=== PATIENT | male | born 1945 | race Caucasian/White ===

== ENCOUNTER 2020-04-04 07:21 | Outpatient (RCR) | payer MEDICARE, SELFPAY ==
[2020-03-28 11:01] VITALS: BMI 29.6
== END 2020-06-13 12:27 | disposition home or self-care (01) ==
LOC: ANHWOC 07:21
PROVIDERS: PCP Emergency Medicine; Visit Provider Emergency Medicine
DX: I87.2 Venous insufficiency (chronic) (peripheral) (principal)
CPT/HCPCS: 99212; 99213; G0463

== ENCOUNTER 2020-06-10 11:26 | Inpatient (IN) | payer MEDICARE, SELFPAY ==
[2020-06-10] VITALS (14 sets, daily range): BP systolic 136–163; BP diastolic 71–81; PULSE 104–146; RESP 15–24; TEMP 36.2–36.3; O2SAT 88–100; BMI 29.2
--- NOTE | ~2020-06-10 | XR_ITS ---
EXAMINATION: XR chest 2V EXAM DATE: 06/10/2020 12:44 INDICATION: Shortness of breath. History COPD. TECHNIQUE: Frontal and lateral projections of the chest obtained and reviewed. Comparison is made to prior examination from 10/02/2018. FINDINGS: Small right pleural effusion. No focal airspace disease or pneumothorax. Cardiomediastinal silhouette is normal. There are no osseous abnormalities identified. IMPRESSION: Small right pleural effusion. Reviewed, dictated and finalized at location B.
--- NOTE | ~2020-06-10 | XR_ITS ---
XR chest 2V DATE: 06/13/2020 10:03 INDICATION: Shortness of breath TECHNIQUE: AP and lateral views COMPARISON: 06/10/2020 CTA chest 06/10/2022 view chest FINDINGS: There is chronic pulmonary and pleural scarring in the right lower chest. Normal heart size . No interval pulmonary infiltrate or consolidation, pleural effusion or pulmonary vascular congestio n or pneumothorax is detected. IMPRESSION: Chronic right lower lung and pleural scarring Reviewed, dictated and finalized at location B.
--- NOTE | ~2020-06-10 | CT_ITS ---
EXAMINATION: CTA chest PE protocol DATE: 06/10/2020 14:58 INDICATION: Shortness of breath. TECHNIQUE: Computed tomography angiography (CTA) of the chest was performed with 100 mL Omnipaque-350 intravenous contrast timed to evaluate the pulmonary arteries. Coronal maximum intensity projection 3D-reconstructions were created by the technologist. Automated exposure control and iterative reconst ruction technique were employed. The dose-length product was 438.78 mGy-cm. COMPARISON: Chest CT 10/03/2018, 01/14/2018, 03/24/2004 FINDINGS: There is chronic radiation fibrosis in perihilar right lung. There is mild bronchiectasis i n right lower lobe. There are tree-in-bud opacities in right upper lobe and right lower lobe, consist ent with pneumonia. There is peripheral bandlike scarring in right lower lobe and right middle lobe. A calcified right lung nodule and calcified right hilar lymph nodes are consistent with old granuloma tous disease. There is chronic pleural thickening in right hemithorax. No pleural effusion. The heart size is normal. No pericardial effusion. There is no pulmonary embolus. There is mild paraesophageal lymphadenopathy. There is mild chronic height loss of multiple thoracic vertebral bodies. There is m oderate thoracic spondylosis. IMPRESSION: 1. No pulmonary embolus. 2. Recurrent versus chronic pneumonia involving right upper lobe and right lower lobe. 3. 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 4. Chronic mild paraesophageal lymphadenopathy, likely reactive. Reviewed, dictated and finalized at location A. IMPRESSION: 1. No pulmonary embolus. 2. Recurrent versus chronic pneumonia involving right upper lobe and right lowe r lobe. 3. 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 4. Chronic mild paraesophageal lymphadenopathy, likely reactive.
[2020-06-10 11:49] LABS: Basophils Percent Auto 0.4 % (0.2-1.2); Eosinophils Absolute Auto 0.3 K/mm3 (0-0.3); Eosinophils Percent Auto 3.6 % (0-4.4); Hematocrit 42.7 % (42.0-52.0); Hemoglobin 13.6 g/dL (14.0-18.0); Immature Granulocyte Absolute 0.03 K/mm3 (0.00-0.031); Immature Granulocyte Percent A 0.4 % (0-0.5); Immature Platelet Fraction Pct 3.5 % (0.9-11.2); Lymphocytes Absolute Auto 1.21 K/mm3 (0.9-3.2); Lymphocytes Percent Auto 17.5 % (18.3-44.2); Mean Corpuscular HGB Conc 31.9 g/dl (32-36); Mean Corpuscular Hemoglobin 29.2 pg (26-34); Mean Corpuscular Volume 91.6 fl (80-100); Mean Platelet Volume 9.8 fl (7.4-10.4); Monocytes Absolute Auto 0.7 K/mm3 (0.1-0.6); Monocytes Percent Auto 9.8 % (2.6-8.5); Neutrophils Absolute Auto 4.7 K/mm3 (1.3-6.7); Neutrophils Percent Auto 68.3 % (45.5-73.1); Platelet Count Result 287 k/mm3 (150-375); Red Blood Count 4.66 M/mm3 (4.6-6.20); Red Cell Distribution Width 14.4 % (11.5-14.5); White Blood Count 6.9 K/mm3 (4.5-10.0)
[2020-06-10 12:01] LABS: Anion Gap 6 mmol/L (8-16); Blood Urea Nitrogen 27 mg/dL (9-20); Calcium 9.7 mg/dL (8.4-10.2); Carbon Dioxide 29 mmol/L (22-30); Chloride 101 mmol/L (98-107); Estimated CRCL calculation 51 ml/min; Estimated Glomerular Filt Rate 59; Glucose 116 mg/dL (75-110); Potassium 4.9 mmol/L (3.4-5.0); Sodium 136 mmol/L (137-145)
--- NOTE | 2020-06-10 14:14 | ECG_ITS ---
Measurements Intervals [place] Rate: 116 P: 52 OR: 136 QRS: -23 QRSD: 78 T: 42 QT: 305 QTc: 425 Interpretive Statements SINUS TACHYCARDIA CONSIDER INFERIOR INFARCT, AGE INDETERMINATE BASELINE ARTIFACT- I, II, III, AVL, V4-V6 ABNORMAL ECG Electronically Signed On 06-10-2020 20:16:17 CDT by Jn Malave D.O.
--- NOTE | 2020-06-10 14:22 | ED.SOB ---
HPI - SOB/Dyspnea General Chief Complaint: Upper Respiratory Infection Stated Complaint: sent by pcp for pneumonia Time Seen by Provider: 06/10/20 14:05 Source: patient Mode of arrival: ambulatory Limitations: no limitations History of Present Illness HPI Narrative: Patient complaining of shortness of breath x2 to 3 days. Patient was sent here by his primary care physician due to crackles in his lungs you might have pneumonia . Patient denies any chest pain abdominal pain nausea vomiting fever or chills. Patient states he has a history of COPD and on home O2 at 2 L. Related Data Home Medications Medication Instructions Recorded Confirmed albuterol sulfate 2.5 mg/0.5 mL See Rx Instructions .ROUTE .COMPLEX 10/08/19 03/28/20 solution for nebulization calcium carbonate 600 mg calcium 600 mg PO DAILY 10/08/19 03/28/20 (1,500 mg) tablet cholecalciferol (vitamin D3) 50 2,000 unit PO DAILY 10/08/19 03/28/20 mcg (2,000 unit) capsule ferrous fumarate-ascorbic 1 tablet PO .daily tablet 10/08/19 03/28/20 acid-ascorbate sod 65 mg iron-125 mg tablet fish oil-dha-epa 1,200 mg-144 1 cap PO BID cap 10/08/19 03/28/20 mg-216 mg capsule fluticasone propionate 50 See Rx Instructions NASAL DAILY 10/08/19 03/28/20 mcg/actuation nasal PRN ml spray,suspension montelukast 10 mg tablet 10 mg PO .COMPLEX 10/08/19 03/28/20 multivitamin,tx-minerals 1 cap PO DAILY 10/08/19 03/28/20 niacin 500 mg tablet 500 mg PO DAILY 10/08/19 03/28/20 omeprazole 20 mg capsule,delayed 20 mg PO .COMPLEX 10/08/19 03/28/20 release Allergies Allergy/AdvReac Type Severity Reaction Status Date / Time No Known Allergies Allergy Unverified 01/13/18 11:30 Review of Systems Review of Systems: All systems reviewed & are unremarkable except as noted in HPI and below Constitutional: Constitutional: Denies body ache(s), Denies chills, Denies excessive sweating, Denies fatigue, Denies fever(s), Denies headache(s), Denies lethargy, Denies malaise, Denies weakness and Denies weight loss Eyes: Eyes: Denies blurry vision, Denies change in vision and Denies loss of vision ENT: Denies dizziness, Denies ear discharge, Denies headache(s), Denies lip swelling, Denies epistaxis, Denies nasal congestion, Denies neck pain, Denies throat swelling and Denies tongue swelling Cardiovascular: Cardiovascular: Denies chest pain, Denies chest pain at rest, Denies chest pain with activity, Denies diaphoresis, Denies rapid heart rate, Denies edema, Denies irregular heart rhythm, Denies lightheadedness, Denies palpitations, Denies dyspnea and Denies dyspnea on exertion Gastrointestinal: Gastrointestinal: Denies abdominal pain, Denies melena, Denies hematochezia, Denies diarrhea, Denies nausea, Denies vomiting and Denies hematemesis Musculoskeletal: Musculoskeletal: Denies abnormal gait, Denies deformity, Denies joint swelling, Denies limited range of motion, Denies neck pain and Denies numbness Neurologic: Denies Abnormal speech present, Denies abnormal gait, Denies confusion, Denies dizziness, Denies headache(s), Denies focal weakness, Denies loss of vision, Denies numbness, Denies Other visual disturbances, Denies Sensory deficit (Neuro) and Denies weakness Psychiatric: Psychiatric: Denies confusion, Denies depression, Denies auditory hallucinations, Denies homicidal ideation and Denies suicidal ideation Endocrine: Endocrine: Denies cold intolerance, Denies excessive sweating, Denies fatigue, Denies heat intolerance and Denies palpitations Hematologic/Lymphatic: Hematologic/Lymphatic: Denies easy bleeding and Denies easy bruising Allergic/Immunologic: Allergic/Immunologic: Denies lip swelling, Denies throat swelling and Denies tongue swelling [facility] Social History Social History Smoking status: Former smoker Smoking end date: 09/16/93 Alcohol intake: never Gender identity (if verbalized by the patient): Male
[2020-06-10] MEDS: IPRATROPIUM BR 0.02% INH SOLN 0.5 MG/2.5 ML VIAL INHALATION ×2 (14:29→22:00)
[2020-06-10] MEDS: ALBUTEROL SULFATE NEB 2.5 MG/0.5 ML INH 5 MG INHALATION (14:29)
[2020-06-10 14:53] LABS: Lactic Acid Reflex 1.9 mmol/L (0.7-2.1)
[2020-06-10] MEDS: LACTATED RINGERS 1,000 ML 999 ML IV CONT (15:21)
[2020-06-10] MEDS: methylPREDNISolone SOD SUCC 125 MG VIAL IV PUSH (15:21)
--- NOTE | 2020-06-10 20:06 | ADMGEN ---
This patient, Zak Negrete, was admitted to Medical Room 349-01. Patient/family oriented to hospital policies and general routines including ID bracelet, bed and alarms, visiting hours, pain management, procedures, bathroom and other care routines, personal items, smoking policy, room service/diet, and visiting hours. Valuables list has been completed. Information on how to activate the Rapid Response Team has been discussed. Patient/Family are encouraged to report perceived risks to care and to ask questions if they do not understand what they are told or what they should do.
[2020-06-10] MEDS: LACTATED RINGERS 1,000 ML 100 ML IV CONT (20:55)
--- NOTE | 2020-06-10 21:26 | PM.IMHP ---
H&P: HPI History of Present Illness Date/Time: 06/10/20 21:26 Chief complaint: PNEUMONIA, COPD EXACERB Narrative: Zak Negrete is a 75 year old male Who has a history of COPD with hypoxia. He chronically wears oxygen at 2 L per nasal cannula at home. The patient was diagnosed with small cell carcinoma in 1996 And that whenwhen he stops smoking. patient has scar tissue noted to the right middle and lower lobe of his lungs. Patient has been here multiple times for pneumonia. The patient stated that his O2 concentrator ran out was not working correctly at home so he is without oxygen and was short of breath today. He will disease primary care doctor and was wheezing. He was also found to be tachycardic which is chronic for the patient. The patient has been short of breath for the last couple days. He is been wheezing. His primary care doctor sent him to the emergency room because he was having some crackles. Patient had a CT a today which was read as no pulmonary embolus. Recurrent versus chronic pneumonia involving right upper lobe and right lower lobe. 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 Chronic mild para esophageal lymphadenopathy likely reactive. Patient was empirically started on a Zithromax and Rocephin for pneumonia. He was started on IV fluids and given nebulizer treatments as well. He was given steroids in the emergency room as well. He does not have a fever chills no cough. Date of service 06/10/20. Review of Systems Review of Systems: All systems reviewed & are unremarkable except as noted in HPI and below Constitutional: Constitutional: Reports as per HPI and Reports no additional constitutional complaints Eyes: Eyes: Reports as per HPI and Reports no additional eye complaints ENT: Reports system reviewed and no additional complaints, except as documented and Reports Normal hearing present Cardiovascular: Cardiovascular: Reports no additional cardiovascular complaints Respiratory: Respiratory: Reports no additional respiratory complaints and Reports no additional respiratory complaints Gastrointestinal: Gastrointestinal: Reports as per HPI and Reports no additional gastrointestinal complaints Musculoskeletal: Musculoskeletal: Reports no additional musculoskeletal complaints Integumentary/Breasts: Skin/Breast: Reports system reviewed and no additional complaints, except as docu and Reports as per HPI Neurologic: Reports system reviewed and no additional complaints, except as documented, Reports as per HPI and Reports Normal hearing present Psychiatric: Psychiatric: Reports no additional psychiatric complaints and Reports as per HPI Endocrine: Endocrine: Reports no additional endocrine complaints Hematologic/Lymphatic: Hematologic/Lymphatic: Reports no additional hematologic/lymphatic complaints Allergic/Immunologic: Allergic/Immunologic: Reports no additional allergic/immunologic complaints [facility] Past Medical History Medical History (Updated 06/10/20 @ 21:41 by Kayla David NP) Asthma BPH (benign prostatic hyperplasia) Chronic respiratory failure chronic oxygen at 2 L per nasal cannula. DM2 (diabetes mellitus, type 2) GERD (gastroesophageal reflux disease) HLD (hyperlipidemia) Hypertension Hypothyroidism (acquired) Osteoarthritis Peripheral neuropathy Small cell carcinoma radiation and chemotherapy 1996 fibrosis tissues noted in the right middle and lower lobe Surgical History Surgical History History of removal of pigmented skin lesion face History of right hip replacement Family History Family History (Updated 06/10/20 @ 21:35 by Kayla David NP) Mother Patient's mother is , Onset Age: 71 Heart disease Sibling Family history of cardiovascular disease brother Family history of chronic obstructive pulmonary disease sister Heart disease brother Father
[2020-06-10] MEDS: LEVALBUTEROL NEB 1.25 MG/3 ML 0.63 MG INHALATION (22:00)
[2020-06-10] MEDS: methylPREDNISolone SOD SUCC 125 MG VIAL 80 MG IV PUSH (23:01)
[2020-06-10] MEDS: metFORMIN HCL 500 MG TABLET PO (23:01)
[2020-06-11] VITALS (17 sets, daily range): BP systolic 123–136; BP diastolic 60–70; PULSE 80–118; RESP 18–20; TEMP 36.2–36.6; O2SAT 93–99
[2020-06-11] MEDS: IPRATROPIUM BR 0.02% INH SOLN 0.5 MG/2.5 ML VIAL INHALATION ×4 (03:25→21:28)
[2020-06-11] MEDS: LEVALBUTEROL NEB 1.25 MG/3 ML 0.63 MG INHALATION ×2 (03:25→08:18)
[2020-06-11] MEDS: methylPREDNISolone SOD SUCC 125 MG VIAL 80 MG IV PUSH ×3 (05:13→18:01)
[2020-06-11 05:43] LABS: Hematocrit 40.2 % (42.0-52.0); Hemoglobin 12.9 g/dL (14.0-18.0); Mean Corpuscular HGB Conc 32.1 g/dl (32-36); Mean Corpuscular Volume 90.3 fl (80-100); Platelet Count Result 286 k/mm3 (150-375); Red Blood Count 4.45 M/mm3 (4.6-6.20); Red Cell Distribution Width 14.1 % (11.5-14.5); White Blood Count 8.9 K/mm3 (4.5-10.0)
[2020-06-11 05:44] LABS: Basophils Percent Auto 0.1 % (0.2-1.2); Immature Granulocyte Absolute 0.07 K/mm3 (0.00-0.031); Immature Granulocyte Percent A 0.8 % (0-0.5); Lymphocytes Absolute Auto 0.43 K/mm3 (0.9-3.2); Lymphocytes Percent Auto 4.8 % (18.3-44.2); Mean Platelet Volume 9.4 fl (7.4-10.4); Monocytes Absolute Auto 0.1 K/mm3 (0.1-0.6); Monocytes Percent Auto 1.1 % (2.6-8.5); Neutrophils Absolute Auto 8.3 K/mm3 (1.3-6.7); Neutrophils Percent Auto 93.2 % (45.5-73.1)
[2020-06-11 06:00] LABS: Alanine Aminotransferase 23 U/L (4-50); Albumin Level 3.8 g/dL (3.5-5.1); Alkaline Phosphatase 55 U/L (38-126); Anion Gap 4 mmol/L (8-16); Aspartate Amino Transferase 21 U/L (17-59); Bilirubin,Total 0.3 mg/dL (0.2-1.3); Blood Urea Nitrogen 21 mg/dL (9-20); Calcium 9.3 mg/dL (8.4-10.2); Carbon Dioxide 31 mmol/L (22-30); Chloride 101 mmol/L (98-107); Estimated CRCL calculation 60 ml/min; Estimated Glomerular Filt Rate > 60; Glucose 161 mg/dL (75-110); Potassium 4.7 mmol/L (3.4-5.0); Sodium 136 mmol/L (137-145)
[2020-06-11] MEDS: LEVOTHYROXINE SODIUM 50 MCG TABLET PO (06:39)
[2020-06-11 08:17] LABS: Glucose Point of Care 180 (65-105)
[2020-06-11] MEDS: PANTOPRAZOLE 40 MG TABLET PO (09:23)
[2020-06-11] MEDS: OMEGA 3 POLYUNSAT FATTY ACIDS 1 GM CAP PO ×2 (09:23→16:30)
[2020-06-11] MEDS: CHOLECALCIFEROL 1,000 UNITS TABLET 2000 UNITS PO (09:23)
[2020-06-11] MEDS: LOSARTAN POTASSIUM 25 MG TABLET 75 MG PO (09:23)
[2020-06-11] MEDS: THERAPEUTIC MULTIVITAMINS/MINERALS TAB (*BKC) 1 TABLET PO (09:23)
[2020-06-11] MEDS: TAMSULOSIN HCL 0.4 MG CAPSULE PO (09:23)
[2020-06-11] MEDS: CALCIUM CARBONATE (OSCAL) 500 MG TABLET PO (09:24)
[2020-06-11] MEDS: FERROUS SULFATE 324 MG TABLET PO (09:24)
[2020-06-11] MEDS: FUROSEMIDE 20 MG TABLET PO (09:24)
[2020-06-11] MEDS: ASCORBIC ACID 125 MG TABLET PO (09:24)
[2020-06-11] MEDS: ATORVASTATIN 20 MG TABLET 60 MG PO (09:24)
[2020-06-11] MEDS: NIACIN SA 500 MG TABLET PO (09:25)
--- NOTE | 2020-06-11 11:52 | PM.IMPN ---
Progress Note: A&P Assessment and Plan (1) Community acquired pneumonia: Code(s): J18.9 - Pneumonia, unspecified organism Status: Acute Assessment and Plan: the pneumonia showing up where he has fibrosis in the right mid and lower lobe so I am not completely convinced that this is pneumonia or 3rd to seeing the scar tissue. However the patient does have COPD so was empirically started on a Zithromax and Rocephin. We did order for sputum specimen. The patient is not coughing at this time he should short of breath the knees chronically on oxygen 2 L per nasal cannula. The patient stated that his machine was not working correctly at home which could be adding to his exacerbation of dyspnea. 06/11/20 11:52Patient is a 75-year-old male with history of COPD chronic respiratory failure on home oxygen, also diagnosed with a small cell carcinoma and had radiation therapy, he had been short of breath, he further states this oxygen concentrator is not working this is also causing him short of breath, was seen by his primary care doctor and patient may have pneumonia and was sent to emergency department for further evaluation, CTA scan of the chest did not show pulmonary emboli does indicate possible pneumonia scarring, patient is started on antibiotics with a Rocephin azithromycin, Solu-Medrol and updraft, will continue to monitor the patient and reassess chest x-ray on Saturday if there is significant improvement in chest x-ray and clinically will discharge the patient home. (2) Asthma exacerbation in COPD: Code(s): J44.1 - Chronic obstructive pulmonary disease with (acute) exacerbation; J45.901 - Unspecified asthma with (acute) exacerbation Status: Acute Assessment and Plan: I did order Solu-Medrol but will have to watch his blood sugars closely. Continue with his nebulizer Treatments. Patient has a history of tachycardia which is albuterol in a may be making it worse. We may consider changing him to Xopenex. (3) Hypertension: Code(s): I10 - Essential (primary) hypertension Status: Chronic Assessment and Plan: Continue with losartan and Lasix. (4) DM2 (diabetes mellitus, type 2): Code(s): E11.9 - Type 2 diabetes mellitus without complications Status: Chronic Assessment and Plan: Accu-Cheks AC and HS. His last A1c was 5.7. Metformin is on hold at this time. (5) Tachycardia: Code(s): R00.0 - Tachycardia, unspecified Status: Acute Assessment and Plan: Most likely chronic. Could be related to his nebulizer treatments. (6) Hypoxia: Code(s): R09.02 - Hypoxemia Status: Acute Assessment and Plan: Patient has chronic hypoxia. The patient used to smoke and has COPD at history of lung cancer which was treated. Patient is chronically on 2 L per nasal cannula. (7) BPH (benign prostatic hyperplasia): Qualifiers: Lower urinary tract symptom presence: symptoms absent Qualified Code(s): N40.0 - Benign prostatic hyperplasia without lower urinary tract symptoms Code(s): N40.0 - Benign prostatic hyperplasia without lower urinary tract symptoms Status: Chronic Assessment and Plan: The patient denies is but he is on tamsulosin will continue with that he has no problems at this time. (8) Small cell lung cancer: Code(s): C34.90 - Malignant neoplasm of unspecified part of unspecified bronchus or lung Status: Acute Assessment and Plan: Patient has had radiation treatment and chemotherapy in the past. (9) HLD (hyperlipidemia): Qualifiers: Hyperlipidemia type: mixed hyperlipidemia Qualified Code(s): E78.2 - Mixed hyperlipidemia Code(s): E78.5 - Hyperlipidemia, unspecified Status: Acute Assessment and Plan: Continue with atorvastatin and fenofibrate. Subjective Date/time seen: 06/11/20 11:52Patient is a 75-year-old male with history of COPD chronic
[2020-06-11] MEDS: INSULIN ASPART (*BKC) 100 UNITS/ML SUB-Q ×2 (12:07→16:31)
[2020-06-11 16:18] LABS: Glucose Point of Care 240 (65-105)
[2020-06-11 17:44] LABS: Glucose Point of Care 233 (65-105)
[2020-06-11] MEDS: metFORMIN HCL 500 MG TABLET PO (20:25)
[2020-06-11 22:28] LABS: Glucose Point of Care 285 (65-105)
[2020-06-12] VITALS (17 sets, daily range): BP systolic 121–139; BP diastolic 52–65; PULSE 66–120; RESP 16–18; TEMP 36.4–36.6; O2SAT 95–97
[2020-06-12] MEDS: methylPREDNISolone SOD SUCC 125 MG VIAL 80 MG IV PUSH ×2 (01:17→05:52)
[2020-06-12] MEDS: IPRATROPIUM BR 0.02% INH SOLN 0.5 MG/2.5 ML VIAL INHALATION ×4 (02:46→21:14)
[2020-06-12] MEDS: LEVOTHYROXINE SODIUM 50 MCG TABLET PO (05:52)
[2020-06-12 06:36] LABS: Hematocrit 37.6 % (42.0-52.0); Hemoglobin 12.4 g/dL (14.0-18.0); Mean Corpuscular Volume 90.8 fl (80-100); Mean Platelet Volume 9.9 fl (7.4-10.4); Platelet Count Result 305 k/mm3 (150-375); Red Blood Count 4.14 M/mm3 (4.6-6.20); Red Cell Distribution Width 14.6 % (11.5-14.5); White Blood Count 16.1 K/mm3 (4.5-10.0)
[2020-06-12 06:46] LABS: Anion Gap 9 mmol/L (8-16); Blood Urea Nitrogen 26 mg/dL (9-20); Calcium 9.2 mg/dL (8.4-10.2); Carbon Dioxide 29 mmol/L (22-30); Chloride 99 mmol/L (98-107); Estimated CRCL calculation 60 ml/min; Estimated Glomerular Filt Rate > 60; Glucose 201 mg/dL (75-110); Potassium 4.7 mmol/L (3.4-5.0); Sodium 137 mmol/L (137-145)
[2020-06-12] MEDS: FLUTICASONE PROPIONATE 0.05% NA SPR 16 GM BTL (*BKC) 1 SPRAY NASAL (07:55)
[2020-06-12] MEDS: OMEGA 3 POLYUNSAT FATTY ACIDS 1 GM CAP PO ×2 (09:01→20:17)
[2020-06-12] MEDS: TAMSULOSIN HCL 0.4 MG CAPSULE PO (09:01)
[2020-06-12] MEDS: LOSARTAN POTASSIUM 25 MG TABLET 75 MG PO (09:01)
[2020-06-12] MEDS: ASCORBIC ACID 125 MG TABLET PO (09:01)
[2020-06-12] MEDS: PANTOPRAZOLE 40 MG TABLET PO (09:01)
[2020-06-12] MEDS: CALCIUM CARBONATE (OSCAL) 500 MG TABLET PO (09:01)
[2020-06-12] MEDS: THERAPEUTIC MULTIVITAMINS/MINERALS TAB (*BKC) 1 TABLET PO (09:02)
[2020-06-12] MEDS: FERROUS SULFATE 324 MG TABLET PO (09:02)
[2020-06-12] MEDS: ATORVASTATIN 20 MG TABLET 60 MG PO (09:02)
[2020-06-12] MEDS: FUROSEMIDE 20 MG TABLET PO (09:03)
[2020-06-12] MEDS: CHOLECALCIFEROL 1,000 UNITS TABLET 2000 UNITS PO (09:03)
[2020-06-12] MEDS: NIACIN SA 500 MG TABLET PO (09:03)
[2020-06-12] MEDS: INSULIN ASPART (*BKC) 100 UNITS/ML SUB-Q ×3 (09:06→17:25)
[2020-06-12 10:30] LABS: Glucose Point of Care 209 (65-105)
--- NOTE | 2020-06-12 12:27 | P.PNIM_ITS ---
Progress Note: A&P Assessment and Plan (1) Community acquired pneumonia: Code(s): J18.9 - Pneumonia, unspecified organism Status: Acute Assessment and Plan: 06/12/20 12:27 the pneumonia showing up where he has fibrosis in the right mid and lower lobe so I am not completely convinced that this is pneumonia or 3rd to seeing the scar tissue. However the patient does have COPD so was empirically started on a Zithromax and Rocephin. We did order for sputum specimen. The patient is not coughing at this time he should short of breath the knees chronically on oxygen 2 L per nasal cannula. The patient stated that his machine was not working correctly at home which could be adding to his exacerbation of dyspnea. Patient is a 75-year-old male with history of COPD chronic respiratory failure on home oxygen, also diagnosed with a small cell carcinoma and had radiation therapy, he had been short of breath, he further states this oxygen concentrator is not working this is also causing him short of breath, was seen by his primary care doctor and patient may have pneumonia and was sent to emergency department for further evaluation, CTA scan of the chest did not show pulmonary emboli does indicate possible pneumonia scarring, patient is started on antibiotics with a Rocephin azithromycin, Solu-Medrol and updraft, today on 06/12 the patient is feeling much not as short of breath as when he arrived denies any fever concerned about elevated blood sugar most likely secondary to steroid, will stop Solu-Medrol start the patient on oral prednisone and will taper it down as symptoms improved, and will reassess chest x-ray on Saturday if there is significant improvement in chest x-ray and clinically will discharge the patient home. will have a PT OT evaluate the patient patient may benefit going home with physical therapist (2) Asthma exacerbation in COPD: Code(s): J44.1 - Chronic obstructive pulmonary disease with (acute) exacerbation; J45.901 - Unspecified asthma with (acute) exacerbation Status: Acute Assessment and Plan: I did order Solu-Medrol but will have to watch his blood sugars closely. Continue with his nebulizer Treatments. Patient has a history of tachycardia which is albuterol in a may be making it worse. We may consider changing him to Xopenex. (3) Hypertension: Code(s): I10 - Essential (primary) hypertension Status: Chronic Assessment and Plan: Continue with losartan and Lasix. (4) DM2 (diabetes mellitus, type 2): Code(s): E11.9 - Type 2 diabetes mellitus without complications Status: Chronic Assessment and Plan: Accu-Cheks AC and HS. His last A1c was 5.7. Metformin is on hold at this time. (5) Tachycardia: Code(s): R00.0 - Tachycardia, unspecified Status: Acute Assessment and Plan: Most likely chronic. Could be related to his nebulizer treatments. (6) Hypoxia: Code(s): R09.02 - Hypoxemia Status: Acute Assessment and Plan: Patient has chronic hypoxia. The patient used to smoke and has COPD at history of lung cancer which was treated. Patient is chronically on 2 L per nasal cannula. (7) BPH (benign prostatic hyperplasia): Qualifiers: Lower urinary tract symptom presence: symptoms absent Qualified Code(s): N40.0 - Benign prostatic hyperplasia without lower urinary tract symptoms Code(s): N40.0 - Benign prostatic hyperplasia without lower urinary tract symptoms Status: Chronic Assessment and Plan: The patient denies is but he is on tamsulosin will continue with that he has no problems at this time. (8
[2020-06-12 12:30] LABS: Glucose Point of Care 215 (65-105)
[2020-06-12 17:18] LABS: Glucose Point of Care 286 (65-105)
[2020-06-12] MEDS: metFORMIN HCL 500 MG TABLET PO (20:08)
[2020-06-12 21:45] LABS: Glucose Point of Care 149 (65-105)
[2020-06-13] VITALS (7 sets, daily range): BP systolic 142; BP diastolic 80; PULSE 95–110; RESP 18–20; TEMP 36.2; O2SAT 98
[2020-06-13 06:02] LABS: Hematocrit 40.8 % (42.0-52.0); Hemoglobin 13.1 g/dL (14.0-18.0); Mean Corpuscular HGB Conc 32.1 g/dl (32-36); Mean Corpuscular Hemoglobin 29.5 pg (26-34); Mean Corpuscular Volume 91.9 fl (80-100); Mean Platelet Volume 9.3 fl (7.4-10.4); Platelet Count Result 296 k/mm3 (150-375); Red Blood Count 4.44 M/mm3 (4.6-6.20); Red Cell Distribution Width 14.8 % (11.5-14.5); White Blood Count 13.2 K/mm3 (4.5-10.0)
[2020-06-13 06:15] LABS: Anion Gap 4 mmol/L (8-16); Blood Urea Nitrogen 30 mg/dL (9-20); Calcium 9.4 mg/dL (8.4-10.2); Carbon Dioxide 36 mmol/L (22-30); Chloride 98 mmol/L (98-107); Estimated CRCL calculation 55 ml/min; Estimated Glomerular Filt Rate > 60; Glucose 112 mg/dL (75-110); Potassium 4.5 mmol/L (3.4-5.0); Sodium 138 mmol/L (137-145)
[2020-06-13] MEDS: LEVOTHYROXINE SODIUM 50 MCG TABLET PO (06:45)
[2020-06-13 08:00] LABS: Glucose Point of Care 104 (65-105)
[2020-06-13] MEDS: IPRATROPIUM BR 0.02% INH SOLN 0.5 MG/2.5 ML VIAL INHALATION (08:06)
[2020-06-13] MEDS: NIACIN SA 500 MG TABLET PO (08:51)
[2020-06-13] MEDS: LOSARTAN POTASSIUM 25 MG TABLET 75 MG PO (08:51)
[2020-06-13] MEDS: OMEGA 3 POLYUNSAT FATTY ACIDS 1 GM CAP PO (08:52)
[2020-06-13] MEDS: ASCORBIC ACID 125 MG TABLET PO (08:52)
[2020-06-13] MEDS: ATORVASTATIN 20 MG TABLET 60 MG PO (08:52)
[2020-06-13] MEDS: CHOLECALCIFEROL 1,000 UNITS TABLET 2000 UNITS PO (08:53)
[2020-06-13] MEDS: predniSONE 20 MG TABLET 60 MG PO (08:53)
[2020-06-13] MEDS: PANTOPRAZOLE 40 MG TABLET PO (08:53)
[2020-06-13] MEDS: CALCIUM CARBONATE (OSCAL) 500 MG TABLET PO (08:54)
[2020-06-13] MEDS: TAMSULOSIN HCL 0.4 MG CAPSULE PO (08:54)
[2020-06-13] MEDS: FERROUS SULFATE 324 MG TABLET PO (08:54)
[2020-06-13] MEDS: FUROSEMIDE 20 MG TABLET PO (08:54)
[2020-06-13] MEDS: THERAPEUTIC MULTIVITAMINS/MINERALS TAB (*BKC) 1 TABLET PO (08:55)
--- NOTE | 2020-06-13 11:50 | PM.DS ---
DS: Admitting Diagnosis Admitting Diagnosis Admitting Diagnosis: PNEUMONIA, COPD EXACERB DS: Discharge Diagnosis Discharge Diagnosis (1) Community acquired pneumonia: Code(s): J18.9 - Pneumonia, unspecified organism Status: Acute Assessment and Plan: 06/12/20 12:27 the pneumonia showing up where he has fibrosis in the right mid and lower lobe so I am not completely convinced that this is pneumonia or 3rd to seeing the scar tissue. However the patient does have COPD so was empirically started on a Zithromax and Rocephin. We did order for sputum specimen. The patient is not coughing at this time he should short of breath the knees chronically on oxygen 2 L per nasal cannula. The patient stated that his machine was not working correctly at home which could be adding to his exacerbation of dyspnea. Patient is a 75-year-old male with history of COPD chronic respiratory failure on home oxygen, also diagnosed with a small cell carcinoma and had radiation therapy, he had been short of breath, he further states this oxygen concentrator is not working this is also causing him short of breath, was seen by his primary care doctor and patient may have pneumonia and was sent to emergency department for further evaluation, CTA scan of the chest did not show pulmonary emboli does indicate possible pneumonia scarring, patient is started on antibiotics with a Rocephin azithromycin, Solu-Medrol and updraft, today on 06/12 the patient is feeling much not as short of breath as when he arrived denies any fever concerned about elevated blood sugar most likely secondary to steroid, will stop Solu-Medrol start the patient on oral prednisone and will taper it down as symptoms improved, and will reassess chest x-ray on Saturday if there is significant improvement in chest x-ray and clinically will discharge the patient home. will have a PT OT evaluate the patient patient may benefit going home with physical therapist (2) Asthma exacerbation in COPD: Code(s): J44.1 - Chronic obstructive pulmonary disease with (acute) exacerbation; J45.901 - Unspecified asthma with (acute) exacerbation Status: Acute Assessment and Plan: I did order Solu-Medrol but will have to watch his blood sugars closely. Continue with his nebulizer Treatments. Patient has a history of tachycardia which is albuterol in a may be making it worse. We may consider changing him to Xopenex. (3) Hypertension: Code(s): I10 - Essential (primary) hypertension Status: Chronic Assessment and Plan: Continue with losartan and Lasix. (4) DM2 (diabetes mellitus, type 2): Code(s): E11.9 - Type 2 diabetes mellitus without complications Status: Chronic Assessment and Plan: Accu-Cheks AC and HS. His last A1c was 5.7. Metformin is on hold at this time. (5) Tachycardia: Code(s): R00.0 - Tachycardia, unspecified Status: Acute Assessment and Plan: Most likely chronic. Could be related to his nebulizer treatments. (6) Hypoxia: Code(s): R09.02 - Hypoxemia Status: Acute Assessment and Plan: Patient has chronic hypoxia. The patient used to smoke and has COPD at history of lung cancer which was treated. Patient is chronically on 2 L per nasal cannula. (7) BPH (benign prostatic hyperplasia): Qualifiers: Lower urinary tract symptom presence: symptoms absent Qualified Code(s): N40.0 - Benign prostatic hyperplasia without lower urinary tract symptoms Code(s): N40.0 - Benign prostatic hyperplasia without lower urinary tract symptoms Status: Chronic Assessment and Plan: The patient denies is but he is on tamsulosin will continue with that he has no problems at this time. (8) Small cell lung cancer: Code(s): C34.90 - Malignant neoplasm of unspecified part of unspecified bronchus or lung Status: Acute Assessment and Plan: Patient has had radiati
[2020-06-13 12:01] LABS: Glucose Point of Care 131 (65-105)
== END 2020-06-13 14:40 | disposition home or self-care (01) | DRG 190 ==
LOC: ANHED 16:56 → ANH3MED 19:07
PROVIDERS: Nurse Practitioner; Admitting Provider Family Medicine; Emergency Provider Emergency Medicine; PCP Emergency Medicine; Visit Provider Family Medicine
DX: J44.0 Chronic obstructive pulmonary disease with (acute) lower respiratory infection (principal); J18.9 Pneumonia, unspecified organism; J96.11 Chronic respiratory failure with hypoxia; J45.901 Unspecified asthma with (acute) exacerbation; C34.90 Malignant neoplasm of unspecified part of unspecified bronchus or lung; J44.1 Chronic obstructive pulmonary disease with (acute) exacerbation; E11.42 Type 2 diabetes mellitus with diabetic polyneuropathy; J84.10 Pulmonary fibrosis, unspecified; Z99.81 Dependence on supplemental oxygen; Z23 Encounter for immunization; I10 Essential (primary) hypertension; R00.0 Tachycardia, unspecified; N40.0 Benign prostatic hyperplasia without lower urinary tract symptoms; E78.2 Mixed hyperlipidemia; K21.9 Gastro-esophageal reflux disease without esophagitis; E03.9 Hypothyroidism, unspecified; Z96.641 Presence of right artificial hip joint; Z79.84 Long term (current) use of oral hypoglycemic drugs; Z87.891 Personal history of nicotine dependence; Z92.21 Personal history of antineoplastic chemotherapy; Z92.3 Personal history of irradiation
CPT/HCPCS: 36415; 71046; 71275; 80048; 80053; 82728; 83605; 84443; 85025; 85027; 85055; 90471; 90686; 93005; 94640; 96365; 96367; 96375; 99285; A9270; G0008; J0456; J0696; J1815; J2930; J7120; J7512; Q9967

== ENCOUNTER 2020-06-17 06:54 | Observation (INO) | payer MEDICARE, SELFPAY ==
[2020-06-17] VITALS (33 sets, daily range): BP systolic 124–160; BP diastolic 60–81; PULSE 92–116; RESP 16–26; TEMP 36.1–36.3; O2SAT 89–98; BMI 28.9
--- NOTE | ~2020-06-17 | XR_ITS ---
EXAMINATION: XR barium swallow modified EXAM DATE: 06/18/2020 10:30 INDICATION: Dysphagia, shortness of breath. TECHNIQUE: Modified barium esophagram was performed by myself to administered fluoroscopy, in conjun ction with speech pathologist who administered barium in varying consistencies as per speech patholog ist documentation. This was recorded on tape. The DAP for this procedure was 1.4 Gycm2. FINDINGS: Oral stage: Adequate function. Pharyngeal phase: Reduced laryngeal elevation.. Laryngeal penetration: Demonstrated, thin liquids, ejected. Aspiration: None. Laryngeal sensitivity: Present. IMPRESSION: Patient tolerated oral feedings in the upright position. Please refer to speech patholo gist findings and specific feeding recommendations. Reviewed, dictated and finalized at location A. IMPRESSION: Patient tolerated oral feedings in the upright position. Please r efer to speech pathologist findings and specific feeding recommendations.
--- NOTE | ~2020-06-17 | XR_ITS ---
EXAMINATION: XR abdomen/kub 1V DATE: 06/17/2020 19:00 INDICATION: Abdominal discomfort and constipation. TECHNIQUE: A supine view of the abdomen was obtained. COMPARISON: None. FINDINGS: No dilated loops of gas-filled bowel to suggest obstruction. Small amount of scattered colonic stool is suggested. Partially visualized right total hip arthroplasty. Advanced left hip osteoarthritis. IMPRESSION: 1. Normal bowel gas pattern with small amount of scattered colonic stool. Reviewed, dictated and finalized at location A.
--- NOTE | ~2020-06-17 | XR_ITS ---
EXAMINATION: XR chest 1V portable EXAM DATE: 06/17/2020 07:54 INDICATION: Increasing shortness of breath, cough. Recent history of pneumonia. TECHNIQUE: Portable AP frontal chest x-ray was obtained. Comparison is made to prior examination from 06/13/2020. FINDINGS: Chronic right-sided pleural blunting. Some adjacent scarring in the lung. The lungs are oth erwise clear. There are no pleural effusions. The cardiomediastinal silhouette is within normal gramajo its. There is no pneumothorax suspected. There are bony degenerative changes. IMPRESSION: No acute cardiopulmonary findings. Chronic right basilar scarring, pleural blunting. Reviewed, dictated and finalized at location A.
--- NOTE | ~2020-06-17 | CT_ITS ---
EXAMINATION: CTA chest PE protocol DATE: 06/17/2020 08:52 INDICATION: Shortness of breath. TECHNIQUE: Computed tomography angiography (CTA) of the chest was performed with 100 mL Omnipaque-350 intravenous contrast timed to evaluate the pulmonary arteries. Coronal maximum intensity projection 3D-reconstructions were created by the technologist. Automated exposure control and iterative reconst ruction technique were employed. The dose-length product was 623.30 mGy-cm. COMPARISON: Chest CT 06/10/2020, 10/03/2018, 01/14/2018, 03/24/2004 FINDINGS: There is mild atelectasis in lingula. There are airspace opacities in right perihilar regio n with volume loss and architectural distortion, consistent with radiation fibrosis. There is mild em physema. There is mild bronchiectasis in right lower lobe. There are tree-in-bud opacities in right u pper lobe and right lower lobe, consistent with pneumonia. There is mucous plugging in right lower lo be. There are a few stable scattered left lung nodules measuring up to 3 mm, likely benign. Calcified right lung nodules and calcified right hilar lymph nodes are consistent with old granulomatous disea se. There is pleural thickening in right hemithorax. No pleural effusion. The heart size is normal. T here are coronary artery calcifications. No pericardial effusion. There is no pulmonary embolus. Ther e is mild paraesophageal lymphadenopathy with the largest node measuring 1.8 x 1.4 cm. Calcifications in the spleen are consistent with old granulomatous disease. Partially visualized is a fat stranding adjacent to the pancreas. There is mild thoracic spondylosis. There is mild chronic height loss of m ultiple vertebral bodies. IMPRESSION: 1. No pulmonary embolus. Sensitivity is mildly decreased by motion artifact. 2. Recurrent versus chronic pneumonia involving right upper lobe and right lower lobe. 3. 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 4. Chronic mild paraesophageal lymphadenopathy, likely reactive. Reviewed, dictated and finalized at location A. IMPRESSION: 1. No pulmonary embolus. Sensitivity is mildly decreased by motion artifact. 2. Recurrent versus chronic pneumonia involving right upper lobe and right lowe r lobe. 3. 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 4. Chronic mild paraesophageal lymphadenopathy, likely reactive.
--- NOTE | ~2020-06-17 | US_ITS ---
EXAMINATION: US venous doppler LE EXAM DATE: 06/18/2020 08:35 INDICATION: Bilateral leg edema. TECHNIQUE: Multiple grayscale, color flow and Doppler images of the lower extremity deep venous syste ms bilaterally were obtained and reviewed. There is no prior study for comparison. FINDINGS: Right side: The right common femoral, femoral and profunda veins demonstrate normal color flow, respi ratory variation, augmentation and compressibility. Compressibility, color flow confirmed within the right popliteal, posterior tibial, peroneal, and greater saphenous veins. Left side: The left common femoral, femoral and profunda veins demonstrate normal color flow, respira tory variation, augmentation and compressibility. Compressibility, color flow confirmed within the l eft popliteal, posterior tibial, peroneal, and greater saphenous veins. IMPRESSION: 1. No lower extremity deep venous thrombosis bilaterally. Reviewed, dictated and finalized at location A.
--- NOTE | 2020-06-17 07:05 | ECG_ITS ---
Measurements Intervals [place] Rate: 109 P: 58 MA: 124 QRS: -18 QRSD: 105 T: 36 QT: 329 QTc: 444 Interpretive Statements SINUS TACHYCARDIA POSSIBLE LEFT ATRIAL ENLARGEMENT DELAYED PRECORDIAL R/S TRANSITION BASELINE ARTIFACT- I, II, V3 ABNORMAL ECG Electronically Signed On 06-18-2020 7:25:38 CDT by Jn Malave D.O.
--- NOTE | 2020-06-17 07:17 | ED.SOB ---
HPI - SOB/Dyspnea General Chief Complaint: Shortness of Breath/Dyspnea Stated Complaint: sob Time Seen by Provider: 06/17/20 07:04 Source: RN notes reviewed History of Present Illness HPI Narrative: Patient presents emergency department from home via EMS for shortness of breath. Patient states it began to feel short of breath last night. States that he has a history of COPD and is chronically on 2 L nasal cannula. He states he did have a cough that is nonproductive. Denies any fevers or chills chest pain abdominal pain nausea vomiting or any other symptoms. States he was recently admitted to the hospital and been diagnosed with pneumonia and placed on antibiotics which she recently finished. Patient was given Decadron by EMS in route Related Data Home Medications Medication Instructions Recorded Confirmed albuterol sulfate 2.5 mg/0.5 mL 2.5 mg INHALATION PRN PRN 10/08/19 06/10/20 solution for nebulization calcium carbonate 600 mg calcium 600 mg PO DAILY 10/08/19 06/10/20 (1,500 mg) tablet cholecalciferol (vitamin D3) 50 2,000 unit PO DAILY 10/08/19 06/10/20 mcg (2,000 unit) capsule ferrous fumarate-ascorbic 1 tablet PO DAILY tablet 10/08/19 06/10/20 acid-ascorbate sod 65 mg iron-125 mg tablet fish oil-dha-epa 1,200 mg-144 1 cap PO BID cap 10/08/19 06/10/20 mg-216 mg capsule multivitamin,tx-minerals 1 cap PO DAILY 10/08/19 06/10/20 niacin 500 mg tablet 500 mg PO DAILY 10/08/19 06/10/20 omeprazole 20 mg capsule,delayed 20 mg PO HS 10/08/19 06/10/20 release atorvastatin 60 mg PO DAILY 06/10/20 06/10/20 fenofibrate micronized 134 mg PO DAILY 06/10/20 06/10/20 furosemide 20 mg PO QAM 06/10/20 06/10/20 levothyroxine 50 mcg PO QAM 06/10/20 06/10/20 losartan 75 mg PO DAILY 06/10/20 06/10/20 metformin 1,000 mg PO QAM 06/10/20 06/10/20 metformin 500 mg PO 06/10/20 06/10/20 tamsulosin 0.4 mg PO DAILY 06/10/20 06/10/20 Allergies Allergy/AdvReac Type Severity Reaction Status Date / Time No Known Allergies Allergy Unverified 06/17/20 08:00 Review of Systems Review of Systems: Narrative: Gen.: Denies fevers or chills ENT: Denies congestion Respiratory: See HPI CV: Denies chest pain or palpitations GI: Denies abdominal pain nausea, emesis or diarrhea denies burning, urgency, frequency or hematuria Musculoskeletal: Denies back pain or muscle pain Neuro: Denies numbness, tingling, weakness or focal weakness Skin: Denies rash Except as documented, all other systems reviewed and negative [facility] Past Medical History Medical History Asthma BPH (benign prostatic hyperplasia) Chronic respiratory failure chronic oxygen at 2 L per nasal cannula. 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 His and is a durable power of estate planning attorney for healthcare. The patient is a full code. Patient used to smoke a pack a cigarettes a day. He retired from [employer] and then he worked at a [employer]. Smoking packs per day: 1 Smoking cigarettes per day: 20.0 Smoking status: Former smoker Tobacco type: cigarettes Smoking end date: 09/16/93 Alcohol intake: never Substance use: never Substance use type: does not use Gender identity (if verbalized by the patient): Male Spiritual care concerns: No Exam Narrative: Exam Narrative: APPEARANCE: No acute distress, nontoxic, resting in bed EYES: EOMI HEENT: Normocephalic, atraumatic, OMM RESPIRATORY: No respiratory distress coarse breath sounds throughout the deepak
[2020-06-17 07:24] LABS: Basophils Percent Auto 0.1 % (0.2-1.2); Eosinophils Absolute Auto 0.1 K/mm3 (0-0.3); Eosinophils Percent Auto 0.6 % (0-4.4); Hematocrit 39.7 % (42.0-52.0); Hemoglobin 12.8 g/dL (14.0-18.0); Immature Granulocyte Absolute 0.08 K/mm3 (0.00-0.031); Immature Granulocyte Percent A 0.6 % (0-0.5); Lymphocytes Absolute Auto 1.12 K/mm3 (0.9-3.2); Lymphocytes Percent Auto 8.8 % (18.3-44.2); Mean Corpuscular HGB Conc 32.2 g/dl (32-36); Mean Corpuscular Hemoglobin 28.9 pg (26-34); Mean Corpuscular Volume 89.6 fl (80-100); Mean Platelet Volume 9.1 fl (7.4-10.4); Monocytes Absolute Auto 1.2 K/mm3 (0.1-0.6); Monocytes Percent Auto 9.4 % (2.6-8.5); Neutrophils Absolute Auto 10.2 K/mm3 (1.3-6.7); Neutrophils Percent Auto 80.5 % (45.5-73.1); Platelet Count Result 272 k/mm3 (150-375); Red Blood Count 4.43 M/mm3 (4.6-6.20); Red Cell Distribution Width 14.3 % (11.5-14.5); White Blood Count 12.7 K/mm3 (4.5-10.0)
[2020-06-17 07:33] LABS: INR 0.9; Prothrombin Time 12.3 Seconds (11.1-14.7)
[2020-06-17 07:36] LABS: Alanine Aminotransferase 28 U/L (4-50); Albumin Level 3.8 g/dL (3.5-5.1); Alkaline Phosphatase 64 U/L (38-126); Anion Gap 6 mmol/L (8-16); Aspartate Amino Transferase 16 U/L (17-59); Bilirubin,Total 0.5 mg/dL (0.2-1.3); Blood Urea Nitrogen 23 mg/dL (9-20); Calcium 9.1 mg/dL (8.4-10.2); Carbon Dioxide 36 mmol/L (22-30); Chloride 99 mmol/L (98-107); Estimated CRCL calculation 62 ml/min; Estimated Glomerular Filt Rate > 60; Glucose 122 mg/dL (75-110); Potassium 4.2 mmol/L (3.4-5.0); Sodium 141 mmol/L (137-145)
[2020-06-17 07:38] LABS: Partial Thromboplastin Time 24.1 SECONDS (22.3-36.8)
[2020-06-17 07:43] LABS: Alveolar/Arterial O2 Gradient 96.6 mmHg; Base Excess ABG 4.2 mEq/l (+/-2.0); Fractional Inspired Oxygen 28 %; HCO3 ABG 29.3 mEq/l (22.0-26.0); Oxygen Content ABG 16.7 %vol (16.0-22.0); Oxyhemoglobin 86.9 % THb (90.0-100.0); PCO2 ABG 45.2 mmHg (35.0-45.0); PO2 FiO2 Ratio Arterial Blood 1.77 %; Total Hemoglobin 13.7 g/dL (12.0-18.0); pH ABG 7.429 (7.350-7.450)
[2020-06-17 07:44] LABS: PO2 ABG 49.7 mmHg (80.0-100.0)
[2020-06-17 07:45] LABS: Device NASAL CANNULA; Modified Allen's Test Pass; Oxygen Saturation ABG 85.9 % (95.0-100.0); Site Drawn LEFT RADIAL
[2020-06-17 07:45] LABS: NT Pro B Type Natriuretic Pept 338 PG/ML (5-100)
--- NOTE | 2020-06-17 07:45 | PC.NURSE ---
Pt to ED with complaints of shortness of breath and chest tightness starting this morning when he woke up. Pt has hx of COPD and asthma. Pt was recently discharged from the hospital after being admitted for pneumonia. Pt reports he was feeling much better until today. Wears 2L/NC O2 at baseline. SpO2 94% on 2L/NC. Pt used nebulizer treatments at home prior to arrival and was given decadron by EMS en route. PT reports shortness of breath has resolved. Denies chest pain at this time.
--- NOTE | 2020-06-17 08:40 | PC.NURSE ---
Pt in CT.
--- NOTE | 2020-06-17 08:54 | PC.NURSE ---
Breakfast tray ordered for pt.
[2020-06-17] MEDS: IPRATROPIUM BR 0.02% INH SOLN 0.5 MG/2.5 ML VIAL INHALATION ×3 (09:37→20:08)
[2020-06-17] MEDS: ALBUTEROL SULFATE NEB 2.5 MG/0.5 ML INH 5 MG INHALATION ×3 (09:37→20:07)
[2020-06-17 10:19] LABS: Lactic Acid Reflex 1.7 mmol/L (0.7-2.1)
--- NOTE | 2020-06-17 10:53 | ADMGEN ---
This patient, Zak Negrete, was admitted to Medical Room 254-01. Patient/family oriented to hospital policies and general routines including ID bracelet, bed and alarms, visiting hours, pain management, procedures, bathroom and other care routines, personal items, smoking policy, room service/diet, and visiting hours. Valuables list has been completed. Information on how to activate the Rapid Response Team has been discussed. Patient/Family are encouraged to report perceived risks to care and to ask questions if they do not understand what they are told or what they should do.
[2020-06-17 11:39] LABS: Glucose Point of Care 180 (65-105)
--- NOTE | 2020-06-17 14:30 | PM.IMHP ---
H&P: HPI History of Present Illness Date/Time: 06/17/20 14:30 Chief complaint: Shortness of breath. Narrative: Zak Negrete is a 75-year-old male with chronic respiratory failure on home oxygen, COPD, diabetes, hypertension, hypothyroidism, anemia, and history of lung cancer who presented to the emergency department earlier this morning via EMS from home for evaluation of shortness of breath. He is known to the hospitalist service with a recent admission from 06/10 through 06/13 in which he was treated for a COPD exacerbation and possible underlying pneumonia. He was sent home on a short prednisone taper and today he was supposed to decrease his dose to 40 mg a day for couple of days. He felt ?really good? on discharge up until last evening when he began feeling increasingly short of breath after spending what sounds like quite a bit of time on the toilet trying to have a bowel movement. He did not sleep well due to the shortness of breath and despite nebulizer x2 he continued to have wheezing and shortness of breath thus he called 911. With further questioning he has an occasional dry cough, but that is longstanding. Additionally, he will occasionally ?have food go down the wrong pipe? but he is not able to qualify how often that happens however he does deny concerns for aspiration. He also mentions mild periumbilical discomfort near the site of a small hernia, which she states ?popped out? last night while attempting to have a bowel movement. He has chronic lower extremity edema which improves by the time he wakes in the morning. He has not had calf pain or tenderness, denies recent travel, and has no history of venous thromboembolism. At the time my evaluation he reports feeling back to his usual state of health and in fact feels as though he could be discharged home. He has no complaints at this time and specifically denies fever, chills, sweats, cold and flu symptoms, chest pain, pleuritic pain, palpitations, orthopnea, nausea, and vomiting. Review of Systems Review of Systems: Narrative: Twelve systems were reviewed with pertinent positives and negatives as per HPI. He denies headache and neck ache. He ambulates with a walker and denies recent falls. Staff tells me that he is somewhat wobbly when on his feet, but patient tells me that is his baseline. Appetite has been good. No nausea or vomiting. He has felt a bit constipated the past couple of days which is unusual for him. He has also been passing more gas than normal. He denies epigastric discomfort and heartburn. He occasionally has a slow stream on starting to urinate, but has not had difficulties urinating recently and denies concerns for urinary retention. No sick contacts. His sugars have been running a bit high on the steroids. No blurry vision, polydipsia, or polyuria. Except as documented, all other systems were reviewed and are negative. 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 Chronic obstructive pulmonary disease Chronic respiratory failure with hypoxia, on home oxygen therapy On 2 L nasal cannula. Gastroesophageal reflux disease Hyperlipidemia Hypertension Hypothyroidism Osteoarthritis Osteoarthritis Peripheral neuropathy Type 2 diabetes mellitus Hemoglobin A1c was 5.7% on 03/11/2020. Surgical History Surgical History (Updated 06/17/20 @ 18:03 by Aracelis Saunders PA-C) History of right hip replacement Status post surgical removal of malignant neoplasm of skin Excision skin cancer from the face. Family History Family History Mother Patient's mother is , Onset Age: 71 Heart disease Sibling Family history of cardiovascular disease brother Family hist
[2020-06-17] MEDS: methylPREDNISolone SOD SUCC 125 MG VIAL 60 MG IV PUSH ×2 (16:14→21:57)
[2020-06-17 16:32] LABS: Glucose Point of Care 185 (65-105)
[2020-06-17] MEDS: OMEGA 3 POLYUNSAT FATTY ACIDS 1 GM CAP PO (20:39)
[2020-06-17] MEDS: guaiFENesin 12 HR 600 MG TABCR PO (20:40)
[2020-06-17] MEDS: PANTOPRAZOLE 40 MG TABLET PO (20:40)
[2020-06-17 20:52] LABS: Glucose Point of Care 223 (65-105)
[2020-06-18] MEDS: ALBUTEROL SULFATE NEB 2.5 MG/0.5 ML INH 5 MG INHALATION ×2 (02:35→08:01)
[2020-06-18] MEDS: IPRATROPIUM BR 0.02% INH SOLN 0.5 MG/2.5 ML VIAL INHALATION ×2 (02:35→08:01)
[2020-06-18 02:37] VITALS: PULSE 91; RESP 16
[2020-06-18 02:43] VITALS: PULSE 96; RESP 18
[2020-06-18 04:30] VITALS: BP 125/64; PULSE 106; RESP 20; TEMP 36.8; O2SAT 94
[2020-06-18] MEDS: methylPREDNISolone SOD SUCC 125 MG VIAL 60 MG IV PUSH (05:31)
[2020-06-18] MEDS: LEVOTHYROXINE SODIUM 50 MCG TABLET PO (05:31)
[2020-06-18 06:01] LABS: Basophils Percent Auto 0.1 % (0.2-1.2); Hematocrit 38.2 % (42.0-52.0); Hemoglobin 12.6 g/dL (14.0-18.0); Immature Granulocyte Percent A 0.8 % (0-0.5); Lymphocytes Absolute Auto 0.36 K/mm3 (0.9-3.2); Lymphocytes Percent Auto 2.7 % (18.3-44.2); Mean Corpuscular Hemoglobin 29.4 pg (26-34); Mean Platelet Volume 9.4 fl (7.4-10.4); Monocytes Absolute Auto 0.4 K/mm3 (0.1-0.6); Monocytes Percent Auto 3.3 % (2.6-8.5); Neutrophils Absolute Auto 12.3 K/mm3 (1.3-6.7); Neutrophils Percent Auto 93.1 % (45.5-73.1); Platelet Count Result 278 k/mm3 (150-375); Red Blood Count 4.29 M/mm3 (4.6-6.20); Red Cell Distribution Width 14.5 % (11.5-14.5); White Blood Count 13.2 K/mm3 (4.5-10.0)
[2020-06-18 06:16] LABS: Anion Gap 5 mmol/L (8-16); Blood Urea Nitrogen 20 mg/dL (9-20); Calcium 9.4 mg/dL (8.4-10.2); Carbon Dioxide 33 mmol/L (22-30); Chloride 99 mmol/L (98-107); Estimated CRCL calculation 60 ml/min; Estimated Glomerular Filt Rate > 60; Glucose 210 mg/dL (75-110); Potassium 4.9 mmol/L (3.4-5.0); Sodium 137 mmol/L (137-145)
[2020-06-18 08:01] VITALS: PULSE 102; RESP 18; O2SAT 94
[2020-06-18 08:11] VITALS: PULSE 100; RESP 18
[2020-06-18] MEDS: FERROUS SULFATE 324 MG TABLET PO (09:05)
[2020-06-18] MEDS: OMEGA 3 POLYUNSAT FATTY ACIDS 1 GM CAP PO (09:05)
[2020-06-18] MEDS: NIACIN SA 500 MG TABLET PO (09:05)
[2020-06-18] MEDS: LOSARTAN POTASSIUM 25 MG TABLET 75 MG PO (09:06)
[2020-06-18] MEDS: CALCIUM CARBONATE (OSCAL) 500 MG TABLET PO (09:06)
[2020-06-18] MEDS: TAMSULOSIN HCL 0.4 MG CAPSULE PO (09:06)
[2020-06-18] MEDS: ATORVASTATIN 20 MG TABLET 60 MG PO (09:06)
[2020-06-18] MEDS: FENOFIBRATE NANOCRYSTALLIZED 145 MG TABLET PO (09:06)
[2020-06-18] MEDS: guaiFENesin 12 HR 600 MG TABCR PO (09:06)
[2020-06-18 09:52] LABS: Glucose Point of Care 175 (65-105)
[2020-06-18 11:47] LABS: Glucose Point of Care 252 (65-105)
[2020-06-18] MEDS: INSULIN ASPART (*BKC) 100 UNITS/ML SUB-Q (11:57)
--- NOTE | 2020-06-18 12:05 | PM.CNPUL ---
Assessment and Plan Assessment and plan (1) COPD exacerbation: Code(s): J44.1 - Chronic obstructive pulmonary disease with (acute) exacerbation Status: Acute Assessment and Plan: He is exacerbating due to lack of maintenance inhaler therapy most likely. I see no signs of infection and agree with no antibiotics. - Will start Spiriva 18 mcg 1 puff daily - will start Symbicort 160/4.5 mcg 2 puffs bid via spacer device - d/c ipratropium nebulized - change albuterol to 2.5 mg Q6h PRN - d/c solumedrol - prednisone 30 mg PO OD for 3 more days - can likely go home today or tomorrow - ordered outpatient PFT and f/u in our office in six weeks History of Present Illness History of Present Illness Consult date: 06/18/20 Chief complaint: Shortness of breath. Narrative: 75 y/o male with history of Small Cell Lung CA treated in 1996 with chemo/radiation therapy and currently in remission presents with sudden onset dyspnea, wheezing and chest tightness that woke him up at night. He said he took two albuterol nebulized treatments and felt much better. He takes Albuterol 3-4 X/day but does not have a maintainenc inhaler. He says he has a history of Asthma but never formally diagnosed with COPD. He quit smoking at the age of 51 and has 30-45 pack year smoking history. He is on home oxygen. He does have chronic changes on the right lung suggestive of prior radiation induced lung injury. He does have some tree in bud changes in the RLL posteriorly on CT scan but has no fever, no chills, no sweats, no body aches, no runny nose or nasal congestion, no loss of taste or smell, no diarrhea. He does have sputum production that is clear and unchanged. 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 Chronic obstructive pulmonary disease Chronic respiratory failure with hypoxia, on home oxygen therapy On 2 L nasal cannula. Gastroesophageal reflux disease Hyperlipidemia Hypertension Hypothyroidism Osteoarthritis Osteoarthritis Peripheral neuropathy Type 2 diabetes mellitus Hemoglobin A1c was 5.7% on 03/11/2020. Surgical History Surgical History (Updated 06/17/20 @ 18:03 by Aracelis Saunders PA-C) History of right hip replacement Status post surgical removal of malignant neoplasm of skin Excision skin cancer from the face. Family History Family History Mother Patient's mother is , Onset Age: 71 Heart disease Sibling Family history of cardiovascular disease brother Family history of chronic obstructive pulmonary disease sister Heart disease brother Father Family history of chronic obstructive pulmonary disease, Onset Age: 69 Acute myocardial infarction Social History Social History (Updated 06/17/20 @ 18:04 by Aracelis Saunders PA-C) Social History: Surrogate decision maker: Nikki Negrete, spouse. Code status: Full code. Smoking packs per day: 1.5 Smoking cigarettes per day: 30.0 Years smoked: 40 Smoking pack-years: 60.00 Smoking status: Former smoker Tobacco type: cigarettes Smoking end date: 09/16/96 Alcohol intake: never Substance use: never Substance use type: does not use Additional living arrangements comments: Resides in [place] with his . Additional occupation/education comments: Retired from [employer]. He worked at a local [employer] thereafter. Gender identity (if verbalized by the patient): Male Spiritual care concerns: No Meds Home Medications and Allergies Home Medications Medication Instructions Recorded
--- NOTE | 2020-06-18 12:31 | PCSTNOTE ---
Modified barium swallow study completed. Please see ST evaluation report for details and recommendations.
--- NOTE | 2020-06-18 12:51 | PM.DS ---
DS: Admitting Diagnosis Admitting Diagnosis Admitting Diagnosis: Shortness of breath. DS: Discharge Diagnosis Discharge Diagnosis (1) COPD exacerbation: Code(s): J44.1 - Chronic obstructive pulmonary disease with (acute) exacerbation Status: Acute (2) Chronic respiratory failure with hypoxia, on home oxygen therapy: Code(s): J96.11 - Chronic respiratory failure with hypoxia; Z99.81 - Dependence on supplemental oxygen Status: Acute (3) Abnormal chest CT: Code(s): R93.89 - Abnormal findings on diagnostic imaging of other specified body structures Status: Acute (4) Type 2 diabetes mellitus: Code(s): E11.9 - Type 2 diabetes mellitus without complications Status: Acute (5) Hypothyroidism: Code(s): E03.9 - Hypothyroidism, unspecified Status: Acute (6) Benign prostatic hyperplasia: Code(s): N40.0 - Benign prostatic hyperplasia without lower urinary tract symptoms Status: Acute (7) Hypertension: Code(s): I10 - Essential (primary) hypertension Status: Chronic (8) Abdominal discomfort: Code(s): R10.9 - Unspecified abdominal pain Status: Acute DS: Summary Hospital Course Reason for hospitalization: Chief complaint: Shortness of breath. Narrative: Zak Negrete is a 75-year-old male with chronic respiratory failure on home oxygen, COPD, diabetes, hypertension, hypothyroidism, anemia, and history of lung cancer who presented to the emergency department earlier this morning via EMS from home for evaluation of shortness of breath. He is known to the hospitalist service with a recent admission from 06/10 through 06/13 in which he was treated for a COPD exacerbation and possible underlying pneumonia. He was sent home on a short prednisone taper and today he was supposed to decrease his dose to 40 mg a day for couple of days. He felt ?really good? on discharge up until last evening when he began feeling increasingly short of breath after spending what sounds like quite a bit of time on the toilet trying to have a bowel movement. He did not sleep well due to the shortness of breath and despite nebulizer x2 he continued to have wheezing and shortness of breath thus he called 911. With further questioning he has an occasional dry cough, but that is longstanding. Additionally, he will occasionally ?have food go down the wrong pipe? but he is not able to qualify how often that happens however he does deny concerns for aspiration. He also mentions mild periumbilical discomfort near the site of a small hernia, which she states ?popped out? last night while attempting to have a bowel movement. He has chronic lower extremity edema which improves by the time he wakes in the morning. He has not had calf pain or tenderness, denies recent travel, and has no history of venous thromboembolism. At the time my evaluation he reports feeling back to his usual state of health and in fact feels as though he could be discharged home. He has no complaints at this time and specifically denies fever, chills, sweats, cold and flu symptoms, chest pain, pleuritic pain, palpitations, orthopnea, nausea, and vomiting. Hospital Course: patient is 75-year-old male with history of COPD recently discharged after he was treated for exacerbation, apparently patient was on toilet was quite weak he was not able to get up from the toilet, but shortness of breath and patient was brought to the emergency department further evaluate, patient was monitor overnight he remained clinically stable currently has no complaint of shortness will going discharge patient home. Status at Discharge Functional status at discharge: uses cane/walker Overall status at discharge: patient is back to baseline Time Spent with Patient Time attestation: Total time spent providing and/or coordinating discharge services: Patient was seen and examined at the time of the discharge Condition at discharge is stable Code statu
--- NOTE | 2020-06-18 18:16 | ECHO_ITS ---
Patient Info Name: Zak Negrete Age: 75 years : 1945 Gender: Male Ht: 70 in Wt: 210 lbs BSA: 2.19 m2 HR: 101 bpm BP: 125 / 64 mmHg Heart Rhythm: Sinus Rhythm Technical Quality: Poor Exam Date: 06/18/2020 7:07 AM Exam Location: [facility] Card Pulmonary Patient Status: Inpatient Admit Date: 06/17/2020 Staff Ordering Physician: Aracelis Saunders PA-C [employer] Room: Shirley Coronel RDCS Attending Provider: Rian Adkins MD Referring Physician: Nicky MITCHELL; Exam Type: CA echo dop color flow w con Study Info Complete two-dimensional, color flow and Doppler transthoracic echocardiogram is performed with contrast to opacify the left ventricle and to improve the deliniation of the left ventricle endocardial borders. Contrast/Agitated Saline Contrast/Ag. Saline: Definity Amount: 3.00 ml Summary 1. Definity contrast injected to enhance visualization. 2. Left ventricular systolic function is normal, estimated at 50-55%. 3. Left atrial chamber dimension is mildly enlarged. 4. The aortic valve is not well visualized. 5. There is no aortic valve stenosis. 6. The mitral valve has normal leaflets. Left Ventricle Left ventricular chamber dimension is normal. Left ventricular systolic function is normal, estimated at 50-55%. The left ventricular diastolic function is normal. Definity contrast injected to enhance visualization. Right Ventricle Right ventricular chamber dimension is normal. Left Atria Left atrial chamber dimension is mildly enlarged. Right Atria Right atrial chamber dimension is normal. Aortic Valve The aortic valve is not well visualized. There is no aortic valve stenosis. Pulmonic Valve The pulmonic valve is not well visualized. Mitral Valve The mitral valve has normal leaflets. The mitral valve annulus is mildly calcified. Tricuspid Valve The tricuspid valve leaflets are normal. Pericardium/Pleural The pericardium appears normal. Aorta The aortic root size at the sinus of Valsalva is normal. Left Ventricular Outflow Tract Name Value Normal LVOT 2D LVOT Diameter 2.28 cm LVOT Doppler LVOT Peak Velocity 88.01 cm/s LVOT Peak Gradient 3 mmHg LVOT Mean Gradient 1 mmHg LVOT VTI 21.90 cm LVOT VTI/AV VTI Ratio 0.91 LVOT Stroke Volume 89.24 ml LVOT CO 9.02 l/min LVOT CI 4.11 L/min/m2 Pulmonic Valve Name Value Normal PV Doppler PV Peak Velocity 79.68 cm/s PV Peak Gradient 3 mmHg Mitral Valve Name
== END 2020-06-18 14:44 | disposition home health service (06) ==
LOC: ANHED 09:55 → ANH2MED 10:00
PROVIDERS: Admitting Provider Internal Medicine; Emergency Provider Emergency Medicine; PCP Emergency Medicine; Visit Provider Family Medicine
DX: J44.1 Chronic obstructive pulmonary disease with (acute) exacerbation (principal); R91.8 Other nonspecific abnormal finding of lung field; E11.9 Type 2 diabetes mellitus without complications; E03.9 Hypothyroidism, unspecified; N40.0 Benign prostatic hyperplasia without lower urinary tract symptoms; R10.9 Unspecified abdominal pain; I10 Essential (primary) hypertension; K21.9 Gastro-esophageal reflux disease without esophagitis; E78.5 Hyperlipidemia, unspecified; R94.31 Abnormal electrocardiogram [ECG] [EKG]; R59.0 Localized enlarged lymph nodes; Z92.3 Personal history of irradiation; D64.9 Anemia, unspecified; J96.11 Chronic respiratory failure with hypoxia; K42.9 Umbilical hernia without obstruction or gangrene; Z79.84 Long term (current) use of oral hypoglycemic drugs; Z87.891 Personal history of nicotine dependence; Z85.118 Personal history of other malignant neoplasm of bronchus and lung; Z99.81 Dependence on supplemental oxygen
CPT/HCPCS: 36415; 36600; 71045; 71275; 74018; 80048; 80053; 82805; 83605; 83880; 85025; 85610; 85730; 87040; 92611; 93005; 93970; 94640; 94667; 94668; 96374; 96376; 97165; 99285; A9270; C8929; G0378; J1100; J1815; J2930; Q9957; Q9967

== ENCOUNTER 2020-08-10 15:18 | Outpatient (NON) | payer MEDICARE, SELFPAY ==
[2020-08-10 15:38] LABS: Potassium 4.3 mmol/L (3.4-5.0)
== END 2020-08-10 15:19 ==
LOC: HOME HLTH 15:19
PROVIDERS: PCP Emergency Medicine; Visit Provider Emergency Medicine
DX: E87.5 Hyperkalemia (principal)
CPT/HCPCS: 84132

== ENCOUNTER 2020-10-25 19:21 | Inpatient (IN) | payer MEDICARE, SELFPAY ==
[2020-10-25] VITALS (17 sets, daily range): BP systolic 136–151; BP diastolic 62–69; PULSE 105–126; RESP 15–26; TEMP 36.4–36.6; O2SAT 92–100; BMI 28.8
--- NOTE | ~2020-10-25 | XR_ITS ---
EXAMINATION: XR chest 1V portable DATE: 10/25/2020 20:36 INDICATION: Asthma and COPD presenting with shortness of breath TECHNIQUE: frontal view of the chest was obtained. COMPARISON: Chest radiograph and CT dated 06/17/2020 FINDINGS: New diffuse increased interstitial pattern with lower lung predominance and with bronchial wall thick ening most likely pulmonary edema with peribronchial cuffing. Architectural distortion at the right h ilar and infrahilar region and chronic blunting at the right costophrenic angle likely related to rad iation fibrosis and scarring for reported lung cancer. No pneumothorax or definitive pleural effusion . Cardiomediastinal silhouette remains within normal limits for AP technique. IMPRESSION: 1. Bilateral lower lung predominant increased interstitial pattern with bronchial wall thickening mos t likely pulmonary edema although differential includes pneumonia. 2. 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 Reviewed, dictated and finalized at location [facility] [employer] IMPRESSION: 1. Bilateral lower lung predominant increased interstitial pattern with bronchi al wall thickening most likely pulmonary edema although differential includes p neumonia. 2. 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
--- NOTE | 2020-10-25 19:36 | ECG_ITS ---
Measurements Intervals [place] Rate: 126 P: OR: 0 QRS: -19 QRSD: 82 T: 47 QT: 295 QTc: 428 Interpretive Statements SINUS TACHYCARDIA BASELINE ARTIFACT- I, II, III, AVR, AVL, AVF, V1, V4-V6 ABNORMAL ECG Electronically Signed On 10-26-2020 13:32:59 [employer] by Jn Malave D.O.
[2020-10-25] MEDS: ALBUTEROL SULFATE NEB 2.5 MG/0.5 ML INH 5 MG INHALATION (20:02)
[2020-10-25] MEDS: IPRATROPIUM BR 0.02% INH SOLN 0.5 MG/2.5 ML VIAL INHALATION (20:03)
[2020-10-25 20:06] LABS: Alveolar/Arterial O2 Gradient 87.8 mmHg; Base Excess ABG 2.7 mEq/l (+/-2.0); Device BIPAP; Fractional Inspired Oxygen 30 %; HCO3 ABG 29.8 mEq/l (22.0-26.0); Modified Allen's Test Pass; Oxygen Content ABG 14.2 %vol (16.0-22.0); Oxygen Saturation ABG 87.2 % (95.0-100.0); Oxyhemoglobin 86.9 % THb (90.0-100.0); PCO2 ABG 58.4 mmHg (35.0-45.0); PO2 ABG 57.5 mmHg (80.0-100.0); PO2 FiO2 Ratio Arterial Blood 1.92 %; Site Drawn RIGHT RADIAL; Total Hemoglobin 11.6 g/dL (12.0-18.0); pH ABG 7.326 (7.350-7.450)
[2020-10-25 20:07] LABS: Expiratory Pressure 7 cmH2O; Inspiratory Pressure 15 cmH2O
[2020-10-25] MEDS: DEXAMETHASONE SOD PHOS INJ 4 MG/ML VIAL 6 MG IV PUSH (20:08)
[2020-10-25 20:12] LABS: Basophils Percent Auto 0.4 % (0.2-1.2); Eosinophils Absolute Auto 0.1 K/mm3 (0-0.3); Eosinophils Percent Auto 1.6 % (0-4.4); Hemoglobin 11.2 g/dL (14.0-18.0); Immature Granulocyte Absolute 0.03 K/mm3 (0.00-0.031); Immature Granulocyte Percent A 0.4 % (0-0.5); Lymphocytes Absolute Auto 0.72 K/mm3 (0.9-3.2); Lymphocytes Percent Auto 8.6 % (18.3-44.2); Mean Corpuscular HGB Conc 30.3 g/dl (32-36); Mean Corpuscular Hemoglobin 27.6 pg (26-34); Mean Corpuscular Volume 91.1 fl (80-100); Monocytes Absolute Auto 0.6 K/mm3 (0.1-0.6); Monocytes Percent Auto 7.2 % (2.6-8.5); Neutrophils Absolute Auto 6.8 K/mm3 (1.3-6.7); Neutrophils Percent Auto 81.8 % (45.5-73.1); Partial Thromboplastin Time 29.5 SECONDS (22.3-36.8); Platelet Count Result 440 k/mm3 (150-375); Red Blood Count 4.06 M/mm3 (4.6-6.20); Red Cell Distribution Width 15.2 % (11.5-14.5); White Blood Count 8.4 K/mm3 (4.5-10.0)
[2020-10-25 20:15] LABS: Alanine Aminotransferase 12 U/L (4-50); Alkaline Phosphatase 84 U/L (38-126); Anion Gap 5 mmol/L (8-16); Aspartate Amino Transferase 18 U/L (17-59); Bilirubin,Total 0.2 mg/dL (0.2-1.3); Blood Urea Nitrogen 46 mg/dL (9-20); Calcium 9.4 mg/dL (8.4-10.2); Carbon Dioxide 32 mmol/L (22-30); Chloride 96 mmol/L (98-107); Estimated Glomerular Filt Rate 50; Glucose 233 mg/dL (75-110); Magnesium 1.5 mg/dL (1.6-2.3); Potassium 4.8 mmol/L (3.4-5.0); Sodium 133 mmol/L (137-145)
--- NOTE | 2020-10-25 20:19 | ED.SOB ---
HPI - SOB/Dyspnea General Chief Complaint: Shortness of Breath/Dyspnea Stated Complaint: sob Time Seen by Provider: 10/25/20 19:33 History of Present Illness HPI Narrative: Patient is a 75-year-old gentleman who presents the emergency department with chief complaint of shortness of breath. Patient has history of COPD and has noticed that his legs have been swelling up and noticed that he has been more short of breath lately. Patient states he has had crackles and wheezes present reports that he got extremely short of breath this evening and called 911. Patient reports that EMS started him on CPAP when his oxygen levels were extremely low. Patient reports he is normally on 3 L nasal cannula. Related Data Home Medications Medication Instructions Recorded Confirmed calcium carbonate 600 mg calcium 600 mg PO DAILY 10/08/19 06/17/20 (1,500 mg) tablet fish oil-dha-epa 1,200 mg-144 1 cap PO BID cap 10/08/19 06/17/20 mg-216 mg capsule niacin 500 mg tablet 500 mg PO DAILY 10/08/19 06/17/20 ferrous sulfate [Iron (ferrous 325 mg PO DAILY 06/17/20 06/17/20 sulfate)] Allergies Allergy/AdvReac Type Severity Reaction Status Date / Time No Known Allergies Allergy Verified 10/25/20 19:34 Review of Systems Review of Systems: Narrative: A 10 system review of systems was completed on the patient and is negative except for what is stated in the HPI. Nursing and ancillary documentation was reviewed. 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 Chronic obstructive pulmonary disease Chronic respiratory failure with hypoxia, on home oxygen therapy On 2 L nasal cannula. Gastroesophageal reflux disease Hyperlipidemia Hypertension Hypothyroidism Osteoarthritis Osteoarthritis Peripheral neuropathy Type 2 diabetes mellitus Hemoglobin A1c was 5.7% on 03/11/2020. Surgical History Surgical History History of right hip replacement Status post surgical removal of malignant neoplasm of skin Excision skin cancer from the face. Family History Family History Mother Patient's mother is , Onset Age: 71 Heart disease Sibling Family history of cardiovascular disease brother Family history of chronic obstructive pulmonary disease sister Heart disease brother Father Family history of chronic obstructive pulmonary disease, Onset Age: 69 Acute myocardial infarction Social History Social History Social History: Surrogate decision maker: Nikki Negrete, spouse. Code status: Full code. Smoking packs per day: 1.5 Smoking cigarettes per day: 30.0 Years smoked: 40 Smoking pack-years: 60.00 Smoking status: Former smoker Tobacco type: cigarettes Smoking end date: 09/16/96 Alcohol intake: never Substance use: never Substance use type: does not use Additional living arrangements comments: Resides in [place] with his . Additional occupation/education comments: Retired from [employer]. He worked at a local [employer] thereafter. Gender identity (if verbalized by the patient): Male Spiritual care concerns: No Exam Narrative: Exam Narrative: GENERAL: Well-appearing, well-nourished, and in no acute distress. HEAD: Normocephalic, atraumatic. EYES: PERRLA and EOMI. ENT: Nares clear, no rhinorrhea or epistaxis. Mucous membranes moist. NECK: Supple. CHEST: Coarse breath sounds present bilaterally crackles present bilaterally as well. No respiratory distress. HEART: Regular rate and rhythm. No murmur heard. Normal peripheral pul
[2020-10-25 20:27] LABS: NT Pro B Type Natriuretic Pept 272 PG/ML (5-100); Troponin I < 0.012 ng/mL (0.000-0.034)
[2020-10-25] MEDS: FUROSEMIDE INJ 40 MG/4 ML VIAL IV PUSH (21:43)
[2020-10-25] MEDS: MAGNESIUM SULF 2 GM/WATER 50ML 2 GM/50 ML BAG IVPB (22:10)
--- NOTE | 2020-10-25 22:44 | ADMGEN ---
This patient, Zak Negrete, was admitted to IMU Room 210-01 at 2240. Patient/family oriented to hospital policies and general routines including ID bracelet, bed and alarms, visiting hours, pain management, procedures, bathroom and other care routines, personal items, smoking policy, room service/diet, and visiting hours. Information on how to activate the Rapid Response Team has been discussed. Patient/Family are encouraged to report perceived risks to care and to ask questions if they do not understand what they are told or what they should do.
[2020-10-26] VITALS (25 sets, daily range): BP systolic 118–148; BP diastolic 60–80; PULSE 89–115; RESP 15–27; TEMP 35.8–36.7; O2SAT 92–98
[2020-10-26 00:57] LABS: Troponin I < 0.012 ng/mL (0.000-0.034)
[2020-10-26] MEDS: IPRATROPIUM BR 0.02% INH SOLN 0.5 MG/2.5 ML VIAL INHALATION ×4 (01:20→20:47)
[2020-10-26] MEDS: ALBUTEROL SULFATE NEB 2.5 MG/0.5 ML INH 5 MG INHALATION ×4 (01:20→20:46)
[2020-10-26 05:15] LABS: Troponin I < 0.012 ng/mL (0.000-0.034)
[2020-10-26 11:48] LABS: Glucose Point of Care 107 (65-105)
--- NOTE | 2020-10-26 12:47 | PM.IMHP ---
H&P: HPI History of Present Illness Date/Time: 10/26/20 12:47 Chief Complaint: Shortness of breath Narrative: Zak Negrete is a 75 year old male with past medical history of COPD CHF diabetes mellitus hypertension patient presented to the hospital with shortness of breath worsening rapidly associated with wheezing and cough denies fever or chills patient also complain of extremity swelling at the ER patient was found to have acute of chronic hypoxemic hypercapnic respiratory failure was treated with BiPAP patient was transferred to IMU for further evaluation and treatment Review of Systems Review of Systems: All systems reviewed & are unremarkable except as noted in HPI and below PMFSH Past Medical History Medical History Asthma Benign prostatic hyperplasia Cancer of right lung (~1996) 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 Chronic obstructive pulmonary disease Chronic respiratory failure with hypoxia, on home oxygen therapy On 2 L nasal cannula. Gastroesophageal reflux disease Hyperlipidemia Hypertension Hypothyroidism Osteoarthritis Osteoarthritis Peripheral neuropathy Type 2 diabetes mellitus Hemoglobin A1c was 5.7% on 03/11/2020. Surgical History Surgical History History of right hip replacement Status post surgical removal of malignant neoplasm of skin Excision skin cancer from the face. Family History Family History Mother Patient's mother is , Onset Age: 71 Heart disease Sibling Family history of cardiovascular disease brother Family history of chronic obstructive pulmonary disease sister Heart disease brother Father Family history of chronic obstructive pulmonary disease, Onset Age: 69 Acute myocardial infarction Social History Social History Social History: Surrogate decision maker: Nikki Negrete, spouse. Code status: Full code. Smoking packs per day: 1.5 Smoking cigarettes per day: 30.0 Years smoked: 40 Smoking pack-years: 60.00 Smoking status: Former smoker Tobacco type: cigarettes Smoking end date: 09/16/96 Alcohol intake: never Substance use: never Substance use type: does not use Additional living arrangements comments: Resides in [place] with his . Additional occupation/education comments: Retired from [id number]. He worked at a local [employer] thereafter. Gender identity (if verbalized by the patient): Male Spiritual care concerns: No Meds Home Medications and Allergies Home Medications Medication Instructions Recorded Confirmed Type calcium carbonate 600 mg calcium 600 mg PO DAILY 10/08/19 10/25/20 History (1,500 mg) tablet fish oil-dha-epa 1,200 mg-144 1 cap PO BID cap 10/08/19 10/25/20 History mg-216 mg capsule niacin 500 mg tablet 500 mg PO DAILY 10/08/19 10/25/20 History ferrous sulfate [Iron (ferrous 325 mg PO DAILY 06/17/20 10/25/20 History sulfate)] guaifenesin [Mucus Relief ER] 600 mg PO Q12HR #30 tablet 06/18/20 10/25/20 Rx prednisone 30 mg PO DAILY@0800 #9 tablet 06/18/20 10/25/20 Rx fenofibrate micronized 134 mg 134 mg PO DAILY #90 cap 06/27/20 10/25/20 Rx capsule metformin 500 mg tablet See Rx Instructions .ROUTE 06/28/20 10/25/20 Rx .COMPLEX #270 tablet omeprazole 20 mg capsule,delayed 20 mg PO DAILY #30 cap 07/27/20 10/25/20 Rx release potassium chloride 10 mEq 10 meq PO DAILY #90 tablet 07/29/20 10/25/20 Rx tablet,extended release albuterol sulfate See Rx Instructions .ROUTE 08/30/20 10/25/20 Rx .COMPLEX #360 ml tamsulosin 0.4 mg capsule See Rx Instructions .ROUTE 10/04/20 10/25/20 Rx .COMPLEX #90 capsule budesonide-formotero
--- NOTE | 2020-10-26 12:50 | PM.IMHP ---
H&P: HPI History of Present Illness Date/Time: 10/26/20 12:50 Chief Complaint: Shortness of breath Narrative: Zak Negrete is a 75 year old male with past medical history of COPD CHF hypertension diabetes presented to the hospital with shortness of breath patient started having shortness of breath worsening rapidly worsening with activity associated with cough and wheeze patient called 911 at the ER patient was found to have acute on chronic hypoxemic hypercapnic respiratory failure requiring BiPAP patient also have lower extremity swelling and rash Review of Systems Review of Systems: All systems reviewed & are unremarkable except as noted in HPI and below PMFSH Past Medical History Medical History Asthma Benign prostatic hyperplasia Cancer of right lung (~1996) 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 Chronic obstructive pulmonary disease Chronic respiratory failure with hypoxia, on home oxygen therapy On 2 L nasal cannula. Gastroesophageal reflux disease Hyperlipidemia Hypertension Hypothyroidism Osteoarthritis Osteoarthritis Peripheral neuropathy Type 2 diabetes mellitus Hemoglobin A1c was 5.7% on 03/11/2020. Surgical History Surgical History History of right hip replacement Status post surgical removal of malignant neoplasm of skin Excision skin cancer from the face. Family History Family History Mother Patient's mother is , Onset Age: 71 Heart disease Sibling Family history of cardiovascular disease brother Family history of chronic obstructive pulmonary disease sister Heart disease brother Father Family history of chronic obstructive pulmonary disease, Onset Age: 69 Acute myocardial infarction Social History Social History Social History: Surrogate decision maker: Nikki Negrete, spouse. Code status: Full code. Smoking packs per day: 1.5 Smoking cigarettes per day: 30.0 Years smoked: 40 Smoking pack-years: 60.00 Smoking status: Former smoker Tobacco type: cigarettes Smoking end date: 09/16/96 Alcohol intake: never Substance use: never Substance use type: does not use Additional living arrangements comments: Resides in [place] with his . Additional occupation/education comments: Retired from [employer]. He worked at a local [employer] thereafter. Gender identity (if verbalized by the patient): Male Spiritual care concerns: No Meds Home Medications and Allergies Home Medications Medication Instructions Recorded Confirmed Type calcium carbonate 600 mg calcium 600 mg PO DAILY 10/08/19 10/25/20 History (1,500 mg) tablet fish oil-dha-epa 1,200 mg-144 1 cap PO BID cap 10/08/19 10/25/20 History mg-216 mg capsule niacin 500 mg tablet 500 mg PO DAILY 10/08/19 10/25/20 History ferrous sulfate [Iron (ferrous 325 mg PO DAILY 06/17/20 10/25/20 History sulfate)] guaifenesin [Mucus Relief ER] 600 mg PO Q12HR #30 tablet 06/18/20 10/25/20 Rx prednisone 30 mg PO DAILY@0800 #9 tablet 06/18/20 10/25/20 Rx fenofibrate micronized 134 mg 134 mg PO DAILY #90 cap 06/27/20 10/25/20 Rx capsule metformin 500 mg tablet See Rx Instructions .ROUTE 06/28/20 10/25/20 Rx .COMPLEX #270 tablet omeprazole 20 mg capsule,delayed 20 mg PO DAILY #30 cap 07/27/20 10/25/20 Rx release potassium chloride 10 mEq 10 meq PO DAILY #90 tablet 07/29/20 10/25/20 Rx tablet,extended release albuterol sulfate See Rx Instructions .ROUTE 08/30/20 10/25/20 Rx .COMPLEX #360 ml tamsulosin 0.4 mg capsule See Rx Instructions .ROUTE 10/04/20 10/25/20 Rx .COMPLEX #90 capsule budesonide-formoterol HFA 160 2 puff INHALAT
[2020-10-26 13:30] LABS: Basophils Percent Auto 0.4 % (0.2-1.2); Eosinophils Percent Auto 0.4 % (0-4.4); Hematocrit 35.1 % (42.0-52.0); Hemoglobin 10.6 g/dL (14.0-18.0); Immature Granulocyte Absolute 0.04 K/mm3 (0.00-0.031); Immature Granulocyte Percent A 0.5 % (0-0.5); Lymphocytes Absolute Auto 0.91 K/mm3 (0.9-3.2); Lymphocytes Percent Auto 11.9 % (18.3-44.2); Mean Corpuscular HGB Conc 30.2 g/dl (32-36); Mean Corpuscular Hemoglobin 27.3 pg (26-34); Mean Corpuscular Volume 90.5 fl (80-100); Mean Platelet Volume 8.6 fl (7.4-10.4); Monocytes Absolute Auto 0.7 K/mm3 (0.1-0.6); Monocytes Percent Auto 9.3 % (2.6-8.5); Neutrophils Percent Auto 77.5 % (45.5-73.1); Platelet Count Result 403 k/mm3 (150-375); Red Blood Count 3.88 M/mm3 (4.6-6.20); Red Cell Distribution Width 15.3 % (11.5-14.5); White Blood Count 7.7 K/mm3 (4.5-10.0)
[2020-10-26 13:46] LABS: Potassium 5.4 mmol/L (3.4-5.0)
[2020-10-26 13:50] LABS: Alanine Aminotransferase 12 U/L (4-50); Albumin Level 3.7 g/dL (3.5-5.1); Alkaline Phosphatase 56 U/L (38-126); Anion Gap 1 mmol/L (8-16); Aspartate Amino Transferase 15 U/L (17-59); Bilirubin,Total 0.2 mg/dL (0.2-1.3); Blood Urea Nitrogen 37 mg/dL (9-20); Calcium 9.4 mg/dL (8.4-10.2); Carbon Dioxide 39 mmol/L (22-30); Chloride 98 mmol/L (98-107); Estimated CRCL calculation 51 ml/min; Estimated Glomerular Filt Rate 59; Glucose 149 mg/dL (75-110); Sodium 138 mmol/L (137-145)
[2020-10-26] MEDS: methylPREDNISolone SOD SUCC 40 MG VIAL IV PUSH ×2 (15:34→23:01)
[2020-10-26] MEDS: FUROSEMIDE 20 MG TABLET PO (17:18)
[2020-10-26 17:30] LABS: Glucose Point of Care 113 (65-105)
[2020-10-26] MEDS: guaiFENesin 12 HR 600 MG TABCR PO (20:23)
[2020-10-26 20:56] LABS: Add Urine Microscopic? YES; Appearance Urine Clear (Clear); Bilirubin Urine Negative (Negative); Blood Urine Negative (Negative); Color Urine Yellow (Yellow); Glucose Urine UA 1+ mg/dL (Negative); Ketones Urine Negative (Negative); Leukocyte Esterase Ur Negative LEU/UL (Negative); Nitrate Urine Negative (Negative); Protein Urine 2+ mg/dL (Negative); Specific Grav Ur 1.014 (1.001-1.035); Urobilinogen Urine Negative mg/dL (<2.0); WBC Urine 0-3 /hpf
[2020-10-26 22:35] LABS: SARS-CoV-2 RNA PCR Negative
[2020-10-27] VITALS (21 sets, daily range): BP systolic 125–141; BP diastolic 57–72; PULSE 92–113; RESP 18–22; TEMP 36–36.6; O2SAT 91–100
[2020-10-27 00:32] LABS: Glucose Point of Care 148 (65-105)
[2020-10-27] MEDS: IPRATROPIUM BR 0.02% INH SOLN 0.5 MG/2.5 ML VIAL INHALATION ×4 (02:56→21:19)
[2020-10-27] MEDS: ALBUTEROL SULFATE NEB 2.5 MG/0.5 ML INH 5 MG INHALATION ×4 (02:56→21:19)
[2020-10-27] MEDS: methylPREDNISolone SOD SUCC 40 MG VIAL IV PUSH ×3 (06:24→21:43)
[2020-10-27] MEDS: LEVOTHYROXINE SODIUM 50 MCG TABLET PO (06:24)
[2020-10-27 07:59] LABS: Glucose Point of Care 143 (65-105)
[2020-10-27] MEDS: ATORVASTATIN 20 MG TABLET 60 MG PO (08:45)
[2020-10-27] MEDS: CALCIUM CARBONATE (OSCAL) 500 MG TABLET PO (08:46)
[2020-10-27] MEDS: ENOXAPARIN 40 MG/0.4 ML SYRINGE SUB-Q (08:46)
[2020-10-27] MEDS: FUROSEMIDE 20 MG TABLET PO ×2 (08:47→17:12)
[2020-10-27] MEDS: TAMSULOSIN HCL 0.4 MG CAPSULE PO (08:47)
[2020-10-27] MEDS: FERROUS SULFATE 324 MG TABLET PO (08:47)
[2020-10-27] MEDS: guaiFENesin 12 HR 600 MG TABCR PO ×2 (08:47→20:46)
[2020-10-27] MEDS: PANTOPRAZOLE 40 MG TABLET PO (08:47)
[2020-10-27] MEDS: POTASSIUM CHLORIDE 10 MEQ TABLET.ER PO (08:48)
[2020-10-27] MEDS: FENOFIBRATE NANOCRYSTALLIZED 145 MG TABLET PO (08:50)
[2020-10-27 11:55] LABS: Glucose Point of Care 153 (65-105)
--- NOTE | 2020-10-27 12:39 | P.PNIM_ITS ---
Progress Note: A&P Additional Plan 1) Acute exacerbation of chronic obstructive pulmonary disease: Code(s): J44.1 - Chronic obstructive pulmonary disease with (acute) exacerbation Status: Acute Assessment and Plan: Nebulizer treatments steroid antibiotics (2) Acute and chronic respiratory failure with hypercapnia: Code(s): J96.22 - Acute and chronic respiratory failure with hypercapnia Status: Acute Assessment and Plan: Acute on top of chronic hypoxemic hypercapnic respiratory failure BiPAP (3) Hypothyroidism: Code(s): E03.9 - Hypothyroidism, unspecified Status: Acute Assessment and Plan: Continue home medication (4) Type 2 diabetes mellitus: Code(s): E11.9 - Type 2 diabetes mellitus without complications Status: Acute Assessment and Plan: Insulin sliding scale hold metformin (5) Benign prostatic hyperplasia: Code(s): N40.0 - Benign prostatic hyperplasia without lower urinary tract symptoms Status: Acute Assessment and Plan: Flomax (6) HLD (hyperlipidemia): Qualifiers: Hyperlipidemia type: mixed hyperlipidemia Qualified Code(s): E78.2 - Mixed hyperlipidemia Code(s): E78.5 - Hyperlipidemia, unspecified Status: Acute Assessment and Plan: Continue home meds Additional Plan Bilateral lower extremity swelling and redness most likely cellulitis continue antibiotics Subjective Date/time seen: 10/27/20 12:39 pt feels weak sob Interval history: Patient seen and examined Patient feels better shortness of breath has improved patient on 5 L oxygen currently off BiPAP discussed with the nurse to wean off oxygen patient still have redness and lower extremity Patient denies fever headache chest pain I am seeing the patient for shortness of breath Review of Systems Constitutional: Constitutional: Reports no additional constitutional complaint s Eyes: Eyes: Reports no additional eye complaints ENT: Reports system reviewed and no additional complaints, except as documented Exam Narrative: Exam Narrative: Alert Chest scattered crackles and wheeze Abdomen nontender nondistended CVS S1 + S2 positiveLower extremity edema Const: General: in distress HENMT: General nose exam: no epistaxis Eyes: Sclera: normal sclerae Neck: Neck: supple and no JVD Resp: Auscultation: wheezes Cardio: Rate: regular rate Rhythm: regular rhythm Skin: General skin exam: normal color Neuro: General: gait normal Sensory Exam: normal sensation Extrem: General: edema Objective Data Meds/Results Radiology Results: ITS Impressions Chest X-Ray 10/25/20 20:39 IMPRESSION: 1. Bilateral lower lung predominant increased interstitial pattern with bronchial wall thickening most likely pulmonary edema although differential includes pneumonia. 2. 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
[2020-10-27 13:04] LABS: Basophils Percent Auto 0.2 % (0.2-1.2); Hematocrit 35.3 % (42.0-52.0); Hemoglobin 10.9 g/dL (14.0-18.0); Immature Granulocyte Absolute 0.04 K/mm3 (0.00-0.031); Immature Granulocyte Percent A 0.5 % (0-0.5); Lymphocytes Absolute Auto 0.34 K/mm3 (0.9-3.2); Mean Corpuscular HGB Conc 30.9 g/dl (32-36); Mean Corpuscular Hemoglobin 27.3 pg (26-34); Mean Corpuscular Volume 88.3 fl (80-100); Mean Platelet Volume 8.9 fl (7.4-10.4); Monocytes Absolute Auto 0.3 K/mm3 (0.1-0.6); Monocytes Percent Auto 3.8 % (2.6-8.5); Neutrophils Absolute Auto 7.8 K/mm3 (1.3-6.7); Neutrophils Percent Auto 91.5 % (45.5-73.1); Platelet Count Result 445 k/mm3 (150-375); Red Cell Distribution Width 15.2 % (11.5-14.5); White Blood Count 8.5 K/mm3 (4.5-10.0)
[2020-10-27 13:17] LABS: Alanine Aminotransferase 15 U/L (4-50); Albumin Level 3.9 g/dL (3.5-5.1); Alkaline Phosphatase 67 U/L (38-126); Anion Gap 3 mmol/L (8-16); Aspartate Amino Transferase 20 U/L (17-59); Bilirubin,Total 0.3 mg/dL (0.2-1.3); Blood Urea Nitrogen 38 mg/dL (9-20); Calcium 9.3 mg/dL (8.4-10.2); Carbon Dioxide 36 mmol/L (22-30); Chloride 94 mmol/L (98-107); Estimated CRCL calculation 60 ml/min; Estimated Glomerular Filt Rate > 60; Glucose 223 mg/dL (75-110); Potassium 5.5 mmol/L (3.4-5.0); Sodium 133 mmol/L (137-145)
[2020-10-27] MEDS: NIACIN SA 500 MG TABLET PO (13:24)
[2020-10-27 16:34] LABS: Glucose Point of Care 179 (65-105)
[2020-10-28] VITALS (20 sets, daily range): BP systolic 128–144; BP diastolic 57–72; PULSE 88–113; RESP 18–20; TEMP 36.1–36.5; O2SAT 92–99
[2020-10-28] MEDS: ALBUTEROL SULFATE NEB 2.5 MG/0.5 ML INH 5 MG INHALATION ×4 (02:51→20:45)
[2020-10-28] MEDS: IPRATROPIUM BR 0.02% INH SOLN 0.5 MG/2.5 ML VIAL INHALATION ×4 (02:51→20:45)
[2020-10-28] MEDS: LEVOTHYROXINE SODIUM 50 MCG TABLET PO (06:41)
[2020-10-28] MEDS: methylPREDNISolone SOD SUCC 40 MG VIAL IV PUSH ×3 (06:41→21:34)
[2020-10-28 07:22] LABS: Glucose Point of Care 141 (65-105)
[2020-10-28 08:17] LABS: Basophils Percent Auto 0.2 % (0.2-1.2); Hemoglobin 11.2 g/dL (14.0-18.0); Immature Granulocyte Absolute 0.05 K/mm3 (0.00-0.031); Immature Granulocyte Percent A 0.6 % (0-0.5); Lymphocytes Percent Auto 5.6 % (18.3-44.2); Mean Corpuscular HGB Conc 30.3 g/dl (32-36); Mean Corpuscular Volume 89.2 fl (80-100); Mean Platelet Volume 8.7 fl (7.4-10.4); Monocytes Absolute Auto 0.5 K/mm3 (0.1-0.6); Monocytes Percent Auto 5.3 % (2.6-8.5); Neutrophils Absolute Auto 7.9 K/mm3 (1.3-6.7); Neutrophils Percent Auto 88.3 % (45.5-73.1); Platelet Count Result 444 k/mm3 (150-375); Red Blood Count 4.15 M/mm3 (4.6-6.20); Red Cell Distribution Width 15.1 % (11.5-14.5); White Blood Count 8.9 K/mm3 (4.5-10.0)
[2020-10-28 08:19] LABS: Alanine Aminotransferase 16 U/L (4-50); Albumin Level 3.9 g/dL (3.5-5.1); Alkaline Phosphatase 52 U/L (38-126); Anion Gap 4 mmol/L (8-16); Aspartate Amino Transferase 18 U/L (17-59); Bilirubin,Total 0.2 mg/dL (0.2-1.3); Blood Urea Nitrogen 35 mg/dL (9-20); Calcium 9.4 mg/dL (8.4-10.2); Carbon Dioxide 36 mmol/L (22-30); Chloride 93 mmol/L (98-107); Estimated CRCL calculation 47 ml/min; Estimated Glomerular Filt Rate 54; Glucose 201 mg/dL (75-110); Potassium 5.5 mmol/L (3.4-5.0); Sodium 133 mmol/L (137-145)
[2020-10-28] MEDS: guaiFENesin 12 HR 600 MG TABCR PO ×2 (08:42→21:35)
[2020-10-28] MEDS: ATORVASTATIN 20 MG TABLET 60 MG PO (08:42)
[2020-10-28] MEDS: NIACIN SA 500 MG TABLET PO (08:42)
[2020-10-28] MEDS: PANTOPRAZOLE 40 MG TABLET PO (08:42)
[2020-10-28] MEDS: ENOXAPARIN 40 MG/0.4 ML SYRINGE SUB-Q (08:42)
[2020-10-28] MEDS: TAMSULOSIN HCL 0.4 MG CAPSULE PO (08:42)
[2020-10-28] MEDS: FENOFIBRATE NANOCRYSTALLIZED 145 MG TABLET PO (08:42)
[2020-10-28] MEDS: FERROUS SULFATE 324 MG TABLET PO (08:42)
[2020-10-28] MEDS: FUROSEMIDE 20 MG TABLET PO ×2 (08:43→16:22)
[2020-10-28] MEDS: CALCIUM CARBONATE (OSCAL) 500 MG TABLET PO (08:43)
[2020-10-28] MEDS: POTASSIUM CHLORIDE 10 MEQ TABLET.ER PO (08:43)
--- NOTE | 2020-10-28 11:15 | PM.IMPN ---
Progress Note: A&P Assessment and Plan (1) Acute exacerbation of chronic obstructive pulmonary disease: Code(s): J44.1 - Chronic obstructive pulmonary disease with (acute) exacerbation Status: Acute Assessment and Plan: Nebulizer treatments steroid antibiotics improved (2) Acute and chronic respiratory failure with hypercapnia: Code(s): J96.22 - Acute and chronic respiratory failure with hypercapnia Status: Acute Assessment and Plan: Acute on top of chronic hypoxemic hypercapnic respiratory failure BiPAP improved currently on 5 L of oxygen (3) Hypothyroidism: Code(s): E03.9 - Hypothyroidism, unspecified Status: Acute Assessment and Plan: Continue home medication (4) Type 2 diabetes mellitus: Code(s): E11.9 - Type 2 diabetes mellitus without complications Status: Acute Assessment and Plan: Insulin sliding scale hold metformin (5) Benign prostatic hyperplasia: Code(s): N40.0 - Benign prostatic hyperplasia without lower urinary tract symptoms Status: Acute Assessment and Plan: Flomax (6) HLD (hyperlipidemia): Qualifiers: Hyperlipidemia type: mixed hyperlipidemia Qualified Code(s): E78.2 - Mixed hyperlipidemia Code(s): E78.5 - Hyperlipidemia, unspecified Status: Acute Assessment and Plan: Continue home meds (7) Hyperkalemia: Code(s): E87.5 - Hyperkalemia Status: Acute Assessment and Plan: DC potassium supplement Additional Plan Bilateral lower extremity swelling and redness most likely cellulitis continue antibiotics anticipate discharge home with home health in the next 24-48 hours Subjective Date/time seen: 10/28/20 11:15 Interval history: Patient seen and examined Patient feels better shortness of breath has improved patient on 5 L oxygen currently of BiPAP Patient denies fever headache chest pain I am seeing the patient for shortness of breath Exam Narrative: Exam Narrative: Alert Chest scattered crackles and wheeze Abdomen nontender nondistended CVS S1 + S2 positiveLower extremity edema Objective Data Vital Signs Vital Signs: Vital Signs - 24 hr 10/27/20 12:00 10/27/20 14:00 10/27/20 14:04 Temperature 97.9 F Pulse Rate 104 H 107 H 107 H Respiratory Rate 18 18 18 Blood Pressure 127/69 Pulse Oximetry 94 96 10/27/20 16:00 10/27/20 19:23 10/27/20 20:00 Temperature 97.7 F 96.8 F L Pulse Rate 101 H 107 H 98 Respiratory Rate 18 20 Blood Pressure 128/72 125/58 L Pulse Oximetry 96 94 10/27/20 21:20 10/27/20 21:31 10/27/20 21:43 Temperature Pulse Rate 96 101 H Respiratory Rate 18 18 Blood Pressure Pulse Oximetry 94 10/27/20 22:00 10/27/20 23:57 10/28/20 00:00 Temperature 97 F L Pulse Rate 102 H 101 H 113 H Respiratory Rate 18 Blood Pressure 138/68 Pulse Oximetry 97 96 10/28/20 02:00 10/28/20 02:53 10/28/20 03:54 Temperature 96.9 F L Pulse Rate 96 93 100 Respiratory Rate 18 18 Blood Pressure 137/64 Pulse Oximetry 92 10/28/20 04:00 10/28/20 06:00 10/28/20 08:00 Temperature 97.5 F L Pulse Rate 99 104 H 102 H Respiratory Rate 18 Blood Pressure 130/72 Pulse Oximetry 97 96 10/28/20 08:10 10/28/20 08:20 10/28/20 10:00 Temperature Pulse Rate 88 92 103 H Respiratory Rate 18 18 Blood Pressure Pulse Oximetry 92 Intake/Output Intake/Output: Intake & Output 10/25/20 10/26/20 10/27/20 10/28/20 23:59 23:59 23:59 23:59 Intake Total 50 880 2090 1230 Output Total 1250 1660 2150 Balance 50 -370 430 -920 Meds/Results Medications: Active Medications Generic Name Dose Route Start Last Admin Trade Name Freq PRN Reason Stop Dose Admin Albuterol 5 mg 10/26/20 02:00 10/28/20 08:15 Albuterol Sulfate Neb 2.5 Mg/0.5 Ml Inh INHALATION 5 mg Q6HRT VENESSA Administration Atorvastatin Calcium 60 mg 10/27/20 09:00 10/28/20 08:42 Atorvastatin 20 Mg T
[2020-10-28 12:06] LABS: Glucose Point of Care 135 (65-105)
[2020-10-28 15:58] LABS: Glucose Point of Care 180 (65-105)
--- NOTE | 2020-10-28 18:30 | PC.NURSE ---
This patient, Zak Negrete, was received from IMU on 10/28/20 at 1830. Patient/family oriented to unit policies and routines. Report received from Angie SAMANO.
--- NOTE | 2020-10-28 18:41 | PC.NURSE ---
This patient, Zak Negrete, was transferred to [facility] on 10/28/20 at 1830. Personal belongings sent with patient. Report given to Jessica. Appropriate documentation sent with patient.
[2020-10-28 21:53] LABS: Glucose Point of Care 199 (65-105)
[2020-10-29] VITALS (15 sets, daily range): BP systolic 125–136; BP diastolic 62–75; PULSE 90–108; RESP 16–20; TEMP 35.9–36.7; O2SAT 92–98
[2020-10-29] MEDS: IPRATROPIUM BR 0.02% INH SOLN 0.5 MG/2.5 ML VIAL INHALATION ×4 (03:03→20:37)
[2020-10-29] MEDS: ALBUTEROL SULFATE NEB 2.5 MG/0.5 ML INH 5 MG INHALATION ×4 (03:03→20:37)
[2020-10-29] MEDS: LEVOTHYROXINE SODIUM 50 MCG TABLET PO (05:35)
[2020-10-29] MEDS: methylPREDNISolone SOD SUCC 40 MG VIAL IV PUSH ×3 (05:35→22:01)
[2020-10-29 06:18] LABS: Basophils Percent Auto 0.2 % (0.2-1.2); Immature Granulocyte Absolute 0.04 K/mm3 (0.00-0.031); Immature Granulocyte Percent A 0.5 % (0-0.5); Mean Corpuscular HGB Conc 30.6 g/dl (32-36); Mean Corpuscular Hemoglobin 26.8 pg (26-34); Mean Corpuscular Volume 87.6 fl (80-100); Mean Platelet Volume 8.6 fl (7.4-10.4); Monocytes Absolute Auto 0.7 K/mm3 (0.1-0.6); Monocytes Percent Auto 8.3 % (2.6-8.5); Neutrophils Absolute Auto 7.2 K/mm3 (1.3-6.7); Platelet Count Result 419 k/mm3 (150-375); Red Blood Count 4.11 M/mm3 (4.6-6.20); Red Cell Distribution Width 14.9 % (11.5-14.5); White Blood Count 8.6 K/mm3 (4.5-10.0)
[2020-10-29 06:35] LABS: Alanine Aminotransferase 15 U/L (4-50); Albumin Level 3.7 g/dL (3.5-5.1); Alkaline Phosphatase 50 U/L (38-126); Aspartate Amino Transferase 17 U/L (17-59); Bilirubin,Total 0.2 mg/dL (0.2-1.3); Blood Urea Nitrogen 40 mg/dL (9-20); Calcium 9.8 mg/dL (8.4-10.2); Carbon Dioxide > 40 mmol/L (22-30); Chloride 93 mmol/L (98-107); Estimated CRCL calculation 55 ml/min; Estimated Glomerular Filt Rate > 60; Glucose 156 mg/dL (75-110); Potassium 5.6 mmol/L (3.4-5.0); Sodium 135 mmol/L (137-145)
[2020-10-29 08:23] LABS: Glucose Point of Care 145 (65-105)
[2020-10-29] MEDS: ENOXAPARIN 40 MG/0.4 ML SYRINGE SUB-Q (08:23)
[2020-10-29] MEDS: PANTOPRAZOLE 40 MG TABLET PO (08:23)
[2020-10-29] MEDS: FENOFIBRATE NANOCRYSTALLIZED 145 MG TABLET PO (08:23)
[2020-10-29] MEDS: FERROUS SULFATE 324 MG TABLET PO (08:23)
[2020-10-29] MEDS: ATORVASTATIN 20 MG TABLET 60 MG PO (08:23)
[2020-10-29] MEDS: guaiFENesin 12 HR 600 MG TABCR PO ×2 (08:24→22:00)
[2020-10-29] MEDS: FUROSEMIDE 20 MG TABLET PO ×2 (08:24→17:33)
[2020-10-29] MEDS: TAMSULOSIN HCL 0.4 MG CAPSULE PO (08:24)
[2020-10-29] MEDS: CALCIUM CARBONATE (OSCAL) 500 MG TABLET PO (08:24)
[2020-10-29] MEDS: NIACIN SA 500 MG TABLET PO (08:24)
--- NOTE | 2020-10-29 10:01 | PM.IMPN ---
Progress Note: A&P Assessment and Plan (1) Acute exacerbation of chronic obstructive pulmonary disease: Code(s): J44.1 - Chronic obstructive pulmonary disease with (acute) exacerbation Status: Acute Assessment and Plan: Nebulizer treatments steroid antibiotics improved (2) Acute and chronic respiratory failure with hypercapnia: Code(s): J96.22 - Acute and chronic respiratory failure with hypercapnia Status: Acute Assessment and Plan: Acute on top of chronic hypoxemic hypercapnic respiratory failure BiPAP improved currently on 5 L of oxygen (3) Hypothyroidism: Code(s): E03.9 - Hypothyroidism, unspecified Status: Acute Assessment and Plan: Continue home medication (4) Type 2 diabetes mellitus: Code(s): E11.9 - Type 2 diabetes mellitus without complications Status: Acute Assessment and Plan: Insulin sliding scale hold metformin (5) Benign prostatic hyperplasia: Code(s): N40.0 - Benign prostatic hyperplasia without lower urinary tract symptoms Status: Acute Assessment and Plan: Flomax (6) HLD (hyperlipidemia): Qualifiers: Hyperlipidemia type: mixed hyperlipidemia Qualified Code(s): E78.2 - Mixed hyperlipidemia Code(s): E78.5 - Hyperlipidemia, unspecified Status: Acute Assessment and Plan: Continue home meds (7) Hyperkalemia: Code(s): E87.5 - Hyperkalemia Status: Acute Assessment and Plan: DC potassium supplement Additional Plan Bilateral lower extremity swelling and redness most likely cellulitis continue antibiotics worsening redness will at doxycycline anticipate discharge home with home health in a.m. Subjective Date/time seen: 10/29/20 10:01 Interval history: Patient seen and examined Patient feels better shortness of breath has improved patient on 5 L oxygen currently off BiPAP discussed with the nurse to wean off oxygen patient still have redness and lower extremity Patient denies fever headache chest pain I am seeing the patient for shortness of breath Exam Narrative: Exam Narrative: Alert Chest scattered crackles and wheeze Abdomen nontender nondistended CVS S1 + S2 positiveLower extremity edema Objective Data Vital Signs Vital Signs: Vital Signs - 24 hr 10/28/20 12:00 10/28/20 14:00 10/28/20 14:30 Temperature 97.7 F Pulse Rate 106 H 111 H 95 Respiratory Rate 18 18 Blood Pressure 140/65 Pulse Oximetry 96 10/28/20 14:40 10/28/20 15:59 10/28/20 20:00 Temperature 97.4 F L Pulse Rate 92 105 H Respiratory Rate 18 20 20 Blood Pressure 128/57 L Pulse Oximetry 99 97 10/28/20 20:45 10/28/20 20:46 10/28/20 20:55 Temperature Pulse Rate 96 99 95 Respiratory Rate 18 18 Blood Pressure Pulse Oximetry 98 10/28/20 22:00 10/29/20 03:03 10/29/20 04:00 Temperature 96.9 F L Pulse Rate 107 H 92 92 Respiratory Rate 20 20 Blood Pressure 144/67 H Pulse Oximetry 97 10/29/20 06:00 10/29/20 08:16 10/29/20 08:29 Temperature 96.6 F L Pulse Rate 94 93 93 Respiratory Rate 18 20 20 Blood Pressure 125/75 Pulse Oximetry 98 94 Intake/Output Intake/Output: Intake & Output 10/26/20 10/27/20 10/28/20 10/29/20 23:59 23:59 23:59 23:59 Intake Total 880 2090 2560 500 Output Total 1250 1660 3350 1100 Balance -370 430 -790 -600 Meds/Results Medications: Active Medications Generic Name Dose Route Start Last Admin Trade Name Freq PRN Reason Stop Dose Admin Albuterol 5 mg 10/26/20 02:00 10/29/20 08:14 Albuterol Sulfate Neb 2.5 Mg/0.5 Ml Inh INHALATION 5 mg Q6HRT VENESSA Administration Atorvastatin Calcium 60 mg 10/27/20 09:00 10/29/20 08:23 Atorvastatin 20 Mg Tablet PO 60 mg DAILY VENESSA Administration Budesonide/Formoterol Fumarate 2 puff 10/26/20 20:00 10/29/20 08:14 Budesonide/Form 160-4.5 Mcg (*Sp) INHALATION 2 puff Q12HRT VENESSA Administration Calcium Carbona
[2020-10-29] MEDS: DOXYCYCLINE HYCLATE 100 MG TABLET PO ×2 (11:30→22:00)
[2020-10-29 12:41] LABS: Glucose Point of Care 177 (65-105)
[2020-10-29 17:42] LABS: Glucose Point of Care 157 (65-105)
[2020-10-30] MEDS: ALBUTEROL SULFATE NEB 2.5 MG/0.5 ML INH 5 MG INHALATION ×2 (01:59→08:38)
[2020-10-30] MEDS: IPRATROPIUM BR 0.02% INH SOLN 0.5 MG/2.5 ML VIAL INHALATION ×2 (01:59→08:38)
[2020-10-30 02:01] VITALS: PULSE 104; RESP 18
[2020-10-30 05:47] VITALS: BP 141/63; PULSE 106; RESP 18; TEMP 36.6; O2SAT 94
[2020-10-30] MEDS: methylPREDNISolone SOD SUCC 40 MG VIAL IV PUSH (06:51)
[2020-10-30] MEDS: LEVOTHYROXINE SODIUM 50 MCG TABLET PO (06:51)
[2020-10-30 08:00] VITALS: O2SAT 94
[2020-10-30 08:08] LABS: Basophils Percent Auto 0.1 % (0.2-1.2); Hematocrit 37.3 % (42.0-52.0); Hemoglobin 11.5 g/dL (14.0-18.0); Immature Granulocyte Absolute 0.04 K/mm3 (0.00-0.031); Immature Granulocyte Percent A 0.5 % (0-0.5); Lymphocytes Absolute Auto 0.59 K/mm3 (0.9-3.2); Lymphocytes Percent Auto 7.3 % (18.3-44.2); Mean Corpuscular HGB Conc 30.8 g/dl (32-36); Mean Corpuscular Hemoglobin 27.2 pg (26-34); Mean Corpuscular Volume 88.2 fl (80-100); Mean Platelet Volume 8.9 fl (7.4-10.4); Monocytes Absolute Auto 0.7 K/mm3 (0.1-0.6); Monocytes Percent Auto 8.3 % (2.6-8.5); Neutrophils Absolute Auto 6.7 K/mm3 (1.3-6.7); Neutrophils Percent Auto 83.8 % (45.5-73.1); Platelet Count Result 439 k/mm3 (150-375); Red Blood Count 4.23 M/mm3 (4.6-6.20); Red Cell Distribution Width 15.1 % (11.5-14.5)
[2020-10-30 08:22] LABS: Alanine Aminotransferase 17 U/L (4-50); Albumin Level 3.9 g/dL (3.5-5.1); Alkaline Phosphatase 54 U/L (38-126); Aspartate Amino Transferase 22 U/L (17-59); Bilirubin,Total 0.3 mg/dL (0.2-1.3); Blood Urea Nitrogen 42 mg/dL (9-20); Calcium 9.7 mg/dL (8.4-10.2); Carbon Dioxide > 40 mmol/L (22-30); Chloride 91 mmol/L (98-107); Estimated CRCL calculation 51 ml/min; Estimated Glomerular Filt Rate 59; Glucose 136 mg/dL (75-110); Potassium 4.9 mmol/L (3.4-5.0); Sodium 135 mmol/L (137-145)
[2020-10-30] MEDS: FENOFIBRATE NANOCRYSTALLIZED 145 MG TABLET PO (08:31)
[2020-10-30] MEDS: FUROSEMIDE 20 MG TABLET PO (08:32)
[2020-10-30] MEDS: FERROUS SULFATE 324 MG TABLET PO (08:32)
[2020-10-30] MEDS: CALCIUM CARBONATE (OSCAL) 500 MG TABLET PO (08:32)
[2020-10-30] MEDS: NIACIN SA 500 MG TABLET PO (08:32)
[2020-10-30] MEDS: TAMSULOSIN HCL 0.4 MG CAPSULE PO (08:32)
[2020-10-30] MEDS: ENOXAPARIN 40 MG/0.4 ML SYRINGE SUB-Q (08:32)
[2020-10-30] MEDS: ATORVASTATIN 20 MG TABLET 60 MG PO (08:32)
[2020-10-30] MEDS: DOXYCYCLINE HYCLATE 100 MG TABLET PO (08:32)
[2020-10-30] MEDS: guaiFENesin 12 HR 600 MG TABCR PO (08:32)
[2020-10-30 08:39] LABS: Glucose Point of Care 140 (65-105)
[2020-10-30 08:46] VITALS: PULSE 94; RESP 18
--- NOTE | 2020-10-30 09:36 | PM.DS ---
DS: Admitting Diagnosis Admitting Diagnosis Admitting Diagnosis: shortness of breath DS: Discharge Diagnosis Discharge Diagnosis (1) Acute exacerbation of chronic obstructive pulmonary disease: Code(s): J44.1 - Chronic obstructive pulmonary disease with (acute) exacerbation Status: Acute Assessment and Plan: Nebulizer treatments steroid antibiotics improved follow-up with PCP (2) Acute and chronic respiratory failure with hypercapnia: Code(s): J96.22 - Acute and chronic respiratory failure with hypercapnia Status: Acute Assessment and Plan: Acute on top of chronic hypoxemic hypercapnic respiratory failure BiPAP improved currently on 5 L of oxygen sleep study as outpatient (3) Hypothyroidism: Code(s): E03.9 - Hypothyroidism, unspecified Status: Acute Assessment and Plan: Continue home medication (4) Type 2 diabetes mellitus: Code(s): E11.9 - Type 2 diabetes mellitus without complications Status: Acute Assessment and Plan: metformin (5) Benign prostatic hyperplasia: Code(s): N40.0 - Benign prostatic hyperplasia without lower urinary tract symptoms Status: Acute Assessment and Plan: Flomax (6) HLD (hyperlipidemia): Qualifiers: Hyperlipidemia type: mixed hyperlipidemia Qualified Code(s): E78.2 - Mixed hyperlipidemia Code(s): E78.5 - Hyperlipidemia, unspecified Status: Acute Assessment and Plan: Continue home meds (7) Hyperkalemia: Code(s): E87.5 - Hyperkalemia Status: Acute Assessment and Plan: DC potassium supplement DS: Summary Hospital Course Hospital Course: patient was admitted to the hospital with shortness of breath was found to have COPD exacerbation CHF exacerbation treated with diuresis. Steroid inhaler treatment and antibiotic patient condition improved patient also has cellulitis of lower extremity was treated with antibiotics patient also has abnormal ABG with elevated CO2 treated with BiPAP oxygen was weaned off patient will need sleep study as outpatient patient had hyperkalemia potassium supplement was DCed repeat CBC CMP in 3 days Time Spent with Patient Time attestation: Total time spent providing and/or coordinating discharge services:25 Exam Narrative: Exam Narrative: Alert Chest scattered crackles and wheeze Abdomen nontender nondistended CVS S1 + S2 positiveLower extremity edema DS: Data Data Completed and Pending Labs on day of discharge: Labs from last 24 hours 10/30/20 10/30/20 10/30/20 08:35 07:44 07:44 WBC 8.0 RBC 4.23 L Hgb 11.5 L Hct 37.3 L MCV 88.2 MCH 27.2 MCHC 30.8 L RDW 15.1 H Plt Count 439 H MPV 8.9 Immature Gran % (Auto) 0.5 Neut % (Auto) 83.8 H Lymph % (Auto) 7.3 L [place] % (Auto) 8.3 Eos % (Auto) 0.0 Baso % (Auto) 0.1 L Lymph # (Auto) 0.59 L [place] # (Auto) 0.7 H Eos # (Auto) 0.0 Baso # (Auto) 0.0 Abs Immat Gran (auto) 0.04 H Absolute Neuts (auto) 6.7 Absolute Nucleated RBC 0.0 Nucleated RBC % 0.0 Sodium 135 L Potassium 4.9 Chloride 91 L Carbon Dioxide > 40 H Anion Gap BUN 42 H Creatinine 1.20 Estim Creat Clear Calc 51 Estimated GFR 59 Glucose 136 H POC Capillary Glucose 140 H Calcium 9.7 Total Bilirubin 0.3 AST 22 ALT 17 Alkaline Phosphatase 54 Total Protein 7.0 Albumin 3.9 10/29/20 10/29/20 17:39 12:38 WBC RBC Hgb Hct MCV MCH MCHC RDW Plt Count MPV Immature Gran % (Auto) Neut % (Auto) Lymph % (Auto) [place] % (Auto) Eos % (Auto) Baso % (Auto) Lymph # (Auto) [place] # (Auto) Eos # (Auto) Baso # (Auto) Abs Immat Gran (auto) Absolute Neuts (auto) Absolute Nucleated RBC Nucleated RBC % Sodium Potassium Chloride Carbon Dioxide Anion Gap BUN Creatinine Estim Creat Clear Calc Estimated GFR G
[2020-10-30] MEDS: FUROSEMIDE INJ 40 MG/4 ML VIAL IV PUSH (10:56)
[2020-10-30] MEDS: PANTOPRAZOLE 40 MG TABLET PO (10:56)
== END 2020-10-30 13:00 | disposition home or self-care (01) | DRG 291 ==
LOC: ANHED 21:11 → ANHIMU 10-26 10:29 → ANH3MEDSUR 10-30 09:33 → ANHIMU 11-02 15:14
PROVIDERS: Admitting Provider Internal Medicine; Emergency Provider Emergency Medicine; PCP Emergency Medicine; Visit Provider Internal Medicine
DX: I11.0 Hypertensive heart disease with heart failure (principal); J96.22 Acute and chronic respiratory failure with hypercapnia; J96.21 Acute and chronic respiratory failure with hypoxia; J44.1 Chronic obstructive pulmonary disease with (acute) exacerbation; L03.116 Cellulitis of left lower limb; L03.115 Cellulitis of right lower limb; I50.9 Heart failure, unspecified; Z20.822 Contact with and (suspected) exposure to COVID-19; E03.9 Hypothyroidism, unspecified; N40.0 Benign prostatic hyperplasia without lower urinary tract symptoms; E78.5 Hyperlipidemia, unspecified; E87.5 Hyperkalemia; K21.9 Gastro-esophageal reflux disease without esophagitis; E11.42 Type 2 diabetes mellitus with diabetic polyneuropathy; M19.90 Unspecified osteoarthritis, unspecified site; I10 Essential (primary) hypertension; Z96.641 Presence of right artificial hip joint; Z85.118 Personal history of other malignant neoplasm of bronchus and lung; Z85.828 Personal history of other malignant neoplasm of skin; Z87.891 Personal history of nicotine dependence
CPT/HCPCS: 36415; 36600; 71045; 80053; 81001; 82805; 82948; 83735; 83880; 84484; 85025; 85610; 85730; 87040; 93005; 94002; 94003; 94640; 96374; 99291; A9270; C9803; J0456; J0696; J1100; J1650; J1940; J2920; J3475; U0003; U0005

== ENCOUNTER 2021-03-08 22:14 | Inpatient (IN) | payer MEDICARE, SELFPAY ==
--- NOTE | ~2021-03-08 | CT_ITS ---
EXAMINATION: CTA chest PE protocol DATE: 03/09/2021 00:37 INDICATION: Shortness of breath. Elevated d-dimer. TECHNIQUE: Computed tomography angiography (CTA) of the chest was performed with 100 mL Omnipaque-350 intravenous contrast timed to evaluate the pulmonary arteries. Coronal maximum intensity projection 3D-reconstructions were created by the technologist. Automated exposure control and iterative reconst ruction technique were employed. Exam dose: 692.74 mGy-cm total exam DLP. COMPARISON: 03/08/2021 portable AP chest 06/17/2020 CT pulmonary scan FINDINGS: There is diagnostic contrast enhancement of the pulmonary arteries and no evidence of pulmo nary embolism. No thoracic aortic aneurysm or dissection. Normal heart size. No pericardial effusion. There is a lower paraesophageal lymphadenopathy, the largest node measuring up to 2.3 cm compared to 1.6 cm on 06/17/2020. There is thickening of the wall of the esophagus. Gastroesophageal workup. There is mild left pleural effusion. There is prominent right lower lobe atelectasis and consolidation with extensive crowded air bronchog jimbo. Patchy infiltrate of the right upper and middle lobes. There is a posteromedial basilar atelectasis/consolidation and air bronchograms the left lower lobe. Moderate emphysematous changes. Degenerative changes of the thoracic and lumbar spine. No suspicious osteolytic or osteoblastic lesio ns are noted. IMPRESSION: No evidence of pulmonary embolism Right lower lobe atelectasis/consolidation, posteromedial left lower lobe basilar atelectasis/consoli dation Mild left pleural effusion Moderate emphysematous changes Increased lower paraesophageal lymphadenopathy since 06/17/2020 and esophageal wall thickening. Consid er esophageal workup Reviewed, dictated and finalized at [facility]. Reviewed, dictated and finalized at [facility]. IMPRESSION: No evidence of pulmonary embolism Right lower lobe atelectasis/consolidation, posteromedial left lower lobe basil ar atelectasis/consolidation Mild left pleural effusion Moderate emphysematous changes Increased lower paraesophageal lymphadenopathy since 06/17/2020 and esophageal w all thickening. Consider esophageal workup
--- NOTE | ~2021-03-08 | XR_ITS ---
EXAMINATION: XR chest 1V portable DATE: 03/10/2021 05:35 INDICATION: COPD exacerbation TECHNIQUE: frontal view of the chest was obtained. COMPARISON: Chest radiograph dated 03/08/[address] dated 03/09/2021 FINDINGS: Hyperexpansion of lungs with flattening of the diaphragm consistent with emphysema better appreciated on prior CT. No significant interval change in a diffuse increased reticular pattern throughout both lungs along with more patchy airspace opacities in the bilateral lower lung zones. Small bilateral p leural effusions. No pneumothorax. The cardiomediastinal silhouette is normal. Calcified right hilar lymph nodes consistent with old granulomatous disease. IMPRESSION: 1. No significant interval change in subtle diffuse bilateral lung disease with more focal consolidat ion at the bilateral lower lung zones which could represent pulmonary edema, pneumonia, atelectasis o r most likely some combination thereof. 2. Small bilateral pleural effusions. Reviewed, dictated and finalized at [facility]. IMPRESSION: 1. No significant interval change in subtle diffuse bilateral lung disease with more focal consolidation at the bilateral lower lung zones which could represe nt pulmonary edema, pneumonia, atelectasis or most likely some combination ther eof. 2. Small bilateral pleural effusions.
--- NOTE | ~2021-03-08 | XR_ITS ---
EXAMINATION: XR chest 1V portable DATE: 03/08/2021 22:56 INDICATION: Chest pain and shortness of breath. TECHNIQUE: A single frontal view of the chest was obtained. COMPARISON: Chest single view 10/25/2020, chest CT 06/17/2020 FINDINGS: There are airspace opacities in right perihilar region with chronic volume loss of right he mithorax. There are airspace opacities in the lower lung zones. There is a diffuse interstitial patte rn in the lungs. No pleural effusion or pneumothorax. The heart size is normal. IMPRESSION: 1. Worsened airspace opacities in the lower lung zones, consistent with atelectasis/scarring versus p neumonia. 2. Chronic airspace opacities in right perihilar region with volume loss of right hemithorax, consist ent with radiation fibrosis. 3. Diffuse interstitial pattern in the lungs, consistent with mild pulmonary edema versus pneumonia. Reviewed, dictated and finalized at [facility]. IMPRESSION: 1. Worsened airspace opacities in the lower lung zones, consistent with atelect asis/scarring versus pneumonia. 2. Chronic airspace opacities in right perihilar region with volume loss of rig ht hemithorax, consistent with radiation fibrosis. 3. Diffuse interstitial pattern in the lungs, consistent with mild pulmonary ed nae versus pneumonia.
--- NOTE | ~2021-03-08 | US_ITS ---
EXAMINATION:US venous doppler LE BI INDICATION:Tachycardia TECHNIQUE: Multiple grayscale, color flow and Doppler images of the right and left lower extremity de ep venous systems were obtained and reviewed. COMPARISON:06/18/2020 FINDINGS: The common femoral, superficial femoral and popliteal veins demonstrate normal respiratory variation, augmentation and compressibility. Color flow is also seen within the posterior tibial, pe roneal, greater saphenous and profunda veins. IMPRESSION: 1: No lower extremity deep venous thrombosis. Reviewed, dictated and finalized at [facility].
--- NOTE | ~2021-03-08 | XR_ITS ---
XR chest 1V portable 03/11/2021 07:55 Indication: Pneumonia Procedure: AP portable chest Comparison: Comparison to multiple prior studies sequentially, with oldest reviewed study dated 10/2019. Findings: Heart size normal. There are diffuse bilateral interstitial infiltrates. Small pleural effu sions. No pneumothorax. Impression: 1: Persistent diffuse interstitial infiltrates which may represent edema or pneumonia. 2: Small pleural effusions. Reviewed, dictated and finalized at [facility]. Impression: 1: Persistent diffuse interstitial infiltrates which may represent edema or pne umonia. 2: Small pleural effusions.
--- NOTE | ~2021-03-08 | XR_ITS ---
XR chest 1V portable 03/12/2021 06:08 Indication: Pneumonia. COPD exacerbation. Procedure: AP portable chest Comparison: Comparison to multiple prior studies sequentially, with oldest reviewed study dated 05/2021. Findings: Right hilar/infrahilar mass with adjacent atelectasis/airspace consolidation. Consideration s include hilar lymphadenopathy and malignancy. Mild bilateral interstitial infiltrates bilaterally. Small right pleural effusion. Impression: 1: Right hilar/infrahilar mass with adjacent consolidation, likely postobstructive atelectasis. Consi laurel lymphadenopathy and bronchogenic carcinoma. 2: Diffuse bilateral interstitial infiltrates may represent pneumonia or edema. Reviewed, dictated and finalized at [facility]. Impression: 1: Right hilar/infrahilar mass with adjacent consolidation, likely postobstruct portia atelectasis. Consider lymphadenopathy and bronchogenic carcinoma. 2: Diffuse bilateral interstitial infiltrates may represent pneumonia or edema .
--- NOTE | 2021-03-08 22:18 | ECG_ITS ---
Measurements Intervals [place] Rate: 150 P: 44 DE: 106 QRS: -24 QRSD: 94 T: 42 QT: 259 QTc: 409 Interpretive Statements SINUS TACHYCARDIA WITH SHORT DE INTERVAL, POSSIBLE ATRIAL FLUTTER DELAYED PRECORDIAL R/S TRANSITION INFERIOR INFARCT, AGE INDETERMINATE BASELINE ARTIFACT- I, II, III, AVR, AVL, AVF, V1-V2 ABNORMAL ECG Electronically Signed On 03-09-2021 15:23:15 CDT by Jn Malave D.O.
[2021-03-08 22:21] VITALS: BP 119/101; PULSE 150; RESP 24; TEMP 36.7; O2SAT 78
--- NOTE | 2021-03-08 22:36 | ED.SOB ---
HPI - SOB/Dyspnea General Chief Complaint: Shortness of Breath/Dyspnea Stated Complaint: Shortness of breath Time Seen by Provider: 03/08/21 22:18 Source: patient and EMS Mode of arrival: EMS Limitations: no limitations History of Present Illness HPI Narrative: Patient is a 75-year-old male brought in by EMS in respiratory distress. Patient states that his shortness of breath started today. Patient has a history of COPD and on continuous home oxygen at 5 L. Patient denies any chest pain abdominal pain, nausea, vomiting, diarrhea, fever or chills. Related Data Home Medications Medication Instructions Recorded Confirmed calcium carbonate 600 mg calcium 600 mg PO DAILY 10/08/19 10/25/20 (1,500 mg) tablet fish oil-dha-epa 1,200 mg-144 1 cap PO BID cap 10/08/19 10/25/20 mg-216 mg capsule niacin 500 mg tablet 500 mg PO DAILY 10/08/19 10/25/20 ferrous sulfate [Iron (ferrous 325 mg PO DAILY 06/17/20 10/25/20 sulfate)] levothyroxine 50 mcg PO DAILY 10/25/20 10/25/20 Allergies Allergy/AdvReac Type Severity Reaction Status Date / Time No Known Allergies Allergy Verified 03/08/21 22:28 Review of Systems Review of Systems: All systems reviewed & are unremarkable except as noted in HPI and below Constitutional: Constitutional: Denies body ache(s), Denies chills, Denies excessive sweating, Denies fatigue, Denies fever(s), Denies headache(s), Denies lethargy, Denies malaise, Denies weakness and Denies weight loss Eyes: Eyes: Denies blurry vision, Denies change in vision and Denies loss of vision ENT: Denies dizziness, Denies ear discharge, Denies headache(s), Denies lip swelling, Denies epistaxis, Denies nasal congestion, Denies neck pain, Denies throat swelling and Denies tongue swelling Cardiovascular: Cardiovascular: Denies chest pain, Denies chest pain at rest, Denies chest pain with activity, Denies diaphoresis, Denies rapid heart rate, Denies edema, Denies irregular heart rhythm, Denies lightheadedness and Denies palpitations Respiratory: Respiratory: Denies chest congestion and Denies hemoptysis Gastrointestinal: Gastrointestinal: Denies abdominal pain, Denies melena, Denies hematochezia, Denies diarrhea, Denies nausea, Denies vomiting and Denies hematemesis Musculoskeletal: Musculoskeletal: Denies abnormal gait, Denies deformity, Denies joint swelling, Denies limited range of motion, Denies neck pain and Denies numbness Neurologic: Denies Abnormal speech present, Denies abnormal gait, Denies confusion, Denies dizziness, Denies headache(s), Denies focal weakness, Denies loss of vision, Denies numbness, Denies Other visual disturbances, Denies Sensory deficit (Neuro) and Denies weakness Psychiatric: Psychiatric: Denies confusion, Denies depression, Denies auditory hallucinations, Denies homicidal ideation and Denies suicidal ideation Endocrine: Endocrine: Denies cold intolerance, Denies excessive sweating, Denies fatigue, Denies heat intolerance and Denies palpitations Hematologic/Lymphatic: Hematologic/Lymphatic: Denies easy bleeding and Denies easy bruising Allergic/Immunologic: Allergic/Immunologic: Denies lip swelling, Denies throat swelling and Denies tongue swelling PMF Past Medical History Medical History Asthma Benign prostatic hyperplasia Cancer of right lung (~1996) 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 Chronic obstructive pulmonary disease Chronic respiratory failure with hypoxia, on home oxygen therapy On 2 L nasal cannula. Gastroesophageal reflux disease Hyperlipidemia Hypertension Hypothyroidism Osteoarthritis Osteoarthritis Peripheral neuropathy Type 2 diabetes mellitus Hemoglobin A1c was 5.7% on 03/11/2020. Surgical History Surgical History History of right hip replacement Status post surgical removal of malignant neoplasm
[2021-03-08] MEDS: IPRATROPIUM BR 0.02% INH SOLN 0.5 MG/2.5 ML VIAL INHALATION (22:39)
[2021-03-08] MEDS: ALBUTEROL SULFATE NEB 2.5 MG/0.5 ML INH 5 MG INHALATION (22:39)
[2021-03-08 22:42] VITALS: RESP 30
[2021-03-08 22:43] LABS: Basophils Absolute Auto 0.1 K/mm3 (0.0-0.1); Basophils Percent Auto 0.5 % (0.2-1.2); Eosinophils Absolute Auto 0.3 K/mm3 (0-0.3); Eosinophils Percent Auto 2.3 % (0-4.4); Hematocrit 41.5 % (42.0-52.0); Hemoglobin 12.1 g/dL (14.0-18.0); Immature Granulocyte Absolute 0.07 K/mm3 (0.00-0.031); Immature Granulocyte Percent A 0.6 % (0-0.5); Lymphocytes Absolute Auto 1.23 K/mm3 (0.9-3.2); Lymphocytes Percent Auto 10.1 % (18.3-44.2); Mean Corpuscular HGB Conc 29.2 g/dl (32-36); Mean Corpuscular Hemoglobin 26.8 pg (26-34); Mean Corpuscular Volume 91.8 fl (80-100); Mean Platelet Volume 9.3 fl (7.4-10.4); Monocytes Percent Auto 8.5 % (2.6-8.5); Neutrophils Absolute Auto 9.5 K/mm3 (1.3-6.7); Platelet Count Result 476 k/mm3 (150-375); Red Blood Count 4.52 M/mm3 (4.6-6.20); Red Cell Distribution Width 14.9 % (11.5-14.5); White Blood Count 12.2 K/mm3 (4.5-10.0)
[2021-03-08 22:47] VITALS: PULSE 155; RESP 30
[2021-03-08 22:48] LABS: Alveolar/Arterial O2 Gradient 260.5 mmHg; Base Excess ABG 2.1 mEq/l (+/-2.0); Carboxyhemoglobin 0.8 % THb (0-2.0); Fractional Inspired Oxygen 60 %; HCO3 ABG 31.9 mEq/l (22.0-26.0); Methemoglobin ABG 0.3 %THb (0-1.5); Oxygen Saturation ABG 93.4 % (95.0-100.0); Oxyhemoglobin 93.5 % THb (90.0-100.0); PO2 ABG 81.5 mmHg (80.0-100.0); PO2 FiO2 Ratio Arterial Blood 1.36 %; Reduced Hemoglobin 5.4 %THb (0-5.0); Total Hemoglobin 12.9 g/dL (12.0-18.0)
[2021-03-08 22:52] LABS: Lactic Acid Reflex 1.1 mmol/L (0.7-2.1)
[2021-03-08 22:53] LABS: Modified Allen's Test Pass; Site Drawn RIGHT RADIAL; pH ABG 7.229 (7.350-7.450)
[2021-03-08 22:53] LABS: Anion Gap 9 mmol/L (8-16); Blood Urea Nitrogen 37 mg/dL (9-20); Calcium 9.6 mg/dL (8.4-10.2); Carbon Dioxide 33 mmol/L (22-30); Chloride 95 mmol/L (98-107); Estimated CRCL calculation 44 ml/min; Estimated Glomerular Filt Rate 50; Glucose 171 mg/dL (75-110); Prothrombin Time 13.5 Seconds (11.1-14.7); Sodium 137 mmol/L (137-145)
[2021-03-08 22:54] LABS: Device NON-INVASIVE VENT; Non-Invasive Expiratory Pressure 5 CMH2O; Non-Invasive Inspiratory Pressure 12 CMH2O; Non-Invasive Vent Rate 20 /MIN
[2021-03-08 22:54] LABS: Partial Thromboplastin Time 31.5 SECONDS (22.3-36.8)
[2021-03-08 22:56] LABS: D Dimer 1.34 ug/mL (<0.48)
[2021-03-08 22:59] VITALS: PULSE 154; RESP 30
[2021-03-08 23:03] LABS: NT Pro B Type Natriuretic Pept 440 pg/mL (5-100)
[2021-03-08 23:05] LABS: Troponin I < 0.012 ng/mL (0.000-0.034)
[2021-03-08 23:22] VITALS: BP 113/71; PULSE 149; RESP 22; O2SAT 100
[2021-03-09] VITALS (35 sets, daily range): BP systolic 115–134; BP diastolic 58–109; PULSE 100–138; RESP 18–32; TEMP 36.4–37.3; O2SAT 92–98
--- NOTE | 2021-03-09 01:10 | PC.NURSE ---
pt on bipap.
--- NOTE | 2021-03-09 02:25 | PC.NURSE ---
This patient, Zak Negrete, was admitted to Intensive Care Unit-5. Patient/family oriented to hospital policies and general routines including ID bracelet, bed and alarms, visiting hours, pain management, procedures, bathroom and other care routines, personal items, smoking policy, room service/diet, and visiting hours. Information on how to activate the Rapid Response Team has been discussed. Patient/Family are encouraged to report perceived risks to care and to ask questions if they do not understand what they are told or what they should do.
[2021-03-09] MEDS: IPRATROPIUM BR 0.02% INH SOLN 0.5 MG/2.5 ML VIAL INHALATION ×4 (03:38→20:45)
[2021-03-09] MEDS: ALBUTEROL SULFATE NEB 2.5 MG/0.5 ML INH 5 MG INHALATION ×2 (03:38→09:07)
--- NOTE | 2021-03-09 03:46 | PM.IMHP ---
H&P: HPI History of Present Illness Date/Time: 03/09/21 03:46 Chief Complaint: Shortness of breath Narrative: This is a 75-year-old male with past medical history significant for COPD chronic hypoxic respiratory failure on 5 L by nasal cannula supplement at home a hypo thyroidism type 2 diabetes mellitus diet and with p.o. agents controlled GERD dyslipidemia benign prostatic hyperplasia. Patient had been admitted and discharged back in October of this year due to acute exacerbation of COPD and acute on chronic hypoxic and hypercapnic respiratory failure. Patient is currently on BiPAP and is unable to give much history preliminary workup was significant for chest x-ray with left lower lobe opacity ABG with pH of 7.229 pCO2 of 78 PO2 of 81. Patient was immediately placed on BiPAP therapy and patient is much improved at the time of my visit. 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 Chronic obstructive pulmonary disease Chronic respiratory failure with hypoxia, on home oxygen therapy On 2 L nasal cannula. Gastroesophageal reflux disease Hyperlipidemia Hypertension Hypothyroidism Osteoarthritis Osteoarthritis Peripheral neuropathy Type 2 diabetes mellitus Hemoglobin A1c was 5.7% on 03/11/2020. Surgical History Surgical History History of right hip replacement Status post surgical removal of malignant neoplasm of skin Excision skin cancer from the face. Family History Family History Mother Patient's mother is , Onset Age: 71 Heart disease Sibling Family history of cardiovascular disease brother Family history of chronic obstructive pulmonary disease sister Heart disease brother Father Family history of chronic obstructive pulmonary disease, Onset Age: 69 Acute myocardial infarction Social History Social History Social History: Surrogate decision maker: Nikki Negrete, spouse. Code status: Full code. Smoking packs per day: 1 Smoking cigarettes per day: 20.0 Years smoked: 40 Smoking pack-years: 40.00 Smoking status: Former smoker Tobacco type: cigarettes Smoking end date: 09/16/96 Alcohol intake: never Substance use: never Substance use type: does not use Additional living arrangements comments: Resides in [place] with his . Additional occupation/education comments: Retired from [employer]. He worked at a local [employer] thereafter. Gender identity (if verbalized by the patient): Male Spiritual care concerns: No Meds Home Medications and Allergies Home Medications Medication Instructions Recorded Confirmed Type calcium carbonate 600 mg calcium 600 mg PO DAILY 10/08/19 03/09/21 History (1,500 mg) tablet fish oil-dha-epa 1,200 mg-144 1 cap PO BID cap 10/08/19 03/09/21 History mg-216 mg capsule niacin 500 mg tablet 500 mg PO DAILY 10/08/19 03/09/21 History ferrous sulfate [Iron (ferrous 325 mg PO DAILY 06/17/20 03/09/21 History sulfate)] guaifenesin [Mucus Relief ER] 600 mg PO Q12HR #30 tablet 06/18/20 03/09/21 Rx fenofibrate micronized 134 mg 134 mg PO DAILY #90 cap 06/27/20 03/09/21 Rx capsule levothyroxine 50 mcg PO DAILY 10/25/20 03/09/21 History cefdinir 300 mg PO Q12H #10 cap 10/30/20 03/09/21 Rx omeprazole 20 mg capsule,delayed 20 mg PO DAILY #90 cap 01/20/21 03/09/21 Rx release Spiriva with HandiHaler 1 cap INHALA
[2021-03-09] MEDS: HEPARIN SODIUM 5,000 UNITS/ML VIAL 5000 UNITS SUB-Q ×3 (06:12→21:49)
[2021-03-09 07:52] LABS: Alveolar/Arterial O2 Gradient 213.4 mmHg; Base Excess ABG 2.8 mEq/l (+/-2.0); Fractional Inspired Oxygen 60 %; HCO3 ABG 34.3 mEq/l (22.0-26.0); Oxygen Content ABG 16.9 %vol (16.0-22.0); PO2 ABG 106.4 mmHg (80.0-100.0); PO2 FiO2 Ratio Arterial Blood 1.77 %; Total Hemoglobin 12.4 g/dL (12.0-18.0)
[2021-03-09 07:53] LABS: Device NON-INVASIVE VENT; PCO2 ABG 98.2 mmHg (35.0-45.0); Site Drawn LEFT BRACHIAL; pH ABG 7.161 (7.350-7.450)
[2021-03-09 07:54] LABS: Non-Invasive Expiratory Pressure 5 CMH2O; Non-Invasive Inspiratory Pressure 12 CMH2O; Non-Invasive Vent Rate 20 /MIN
[2021-03-09] MEDS: FUROSEMIDE INJ 40 MG/4 ML VIAL IV PUSH (08:09)
[2021-03-09] MEDS: ATORVASTATIN 20 MG TABLET 60 MG PO (08:10)
[2021-03-09] MEDS: TAMSULOSIN HCL 0.4 MG CAPSULE PO (08:10)
[2021-03-09] MEDS: LOSARTAN POTASSIUM 25 MG TABLET 75 MG PO (08:10)
[2021-03-09] MEDS: PANTOPRAZOLE 40 MG TABLET PO (08:10)
[2021-03-09] MEDS: FERROUS SULFATE 324 MG TABLET PO (08:11)
[2021-03-09] MEDS: LEVOTHYROXINE SODIUM 50 MCG TABLET PO (08:11)
[2021-03-09] MEDS: CALCIUM CARBONATE (OSCAL) 500 MG TABLET PO (08:11)
[2021-03-09] MEDS: NIACIN SA 500 MG TABLET PO (08:11)
[2021-03-09] MEDS: FENOFIBRATE NANOCRYSTALLIZED 145 MG TABLET PO (08:11)
[2021-03-09 08:34] LABS: Glucose Point of Care 228 mg/dl (65-105)
[2021-03-09 09:46] LABS: Alveolar/Arterial O2 Gradient 117.4 mmHg; Base Excess ABG 7.2 mEq/l (+/-2.0); Fractional Inspired Oxygen 45 %; HCO3 ABG 38.6 mEq/l (22.0-26.0); Oxygen Content ABG 16.4 %vol (16.0-22.0); Oxygen Saturation ABG 93.8 % (95.0-100.0); Oxyhemoglobin 94.8 % THb (90.0-100.0); PO2 ABG 87.8 mmHg (80.0-100.0); PO2 FiO2 Ratio Arterial Blood 1.95 %; Total Hemoglobin 12.2 g/dL (12.0-18.0); pH ABG 7.197 (7.350-7.450)
[2021-03-09 09:47] LABS: Device NON-INVASIVE VENT; Modified Allen's Test Pass; Non-Invasive Expiratory Pressure 8 CMH2O; Non-Invasive Inspiratory Pressure 20 CMH2O; Non-Invasive Vent Rate 20 /MIN; PCO2 ABG 101.7 mmHg (35.0-45.0); Site Drawn LEFT RADIAL
[2021-03-09] MEDS: methylPREDNISolone SOD SUCC 125 MG VIAL IV PUSH (09:59)
--- NOTE | 2021-03-09 11:33 | PM.IMPN ---
Progress Note: A&P Assessment and Plan (1) Acute respiratory failure with hypoxia and hypercapnia: Code(s): J96.01 - Acute respiratory failure with hypoxia; J96.02 - Acute respiratory failure with hypercapnia Status: Acute Assessment and Plan: Acute hypercapnic respiratory failure likely related to COPD exacerbation, pneumonia -chest x-ray, CTA chest reviewed -, ABGs improving after making changes to the BiPAP with recommendations from the hand presser -CT scan does show bibasilar consolidation, continue vancomycin, cefepime and azithromycin -patient started on Solu-Medrol -continue bronchodilator (2) Acute exacerbation of chronic obstructive pulmonary disease: Code(s): J44.1 - Chronic obstructive pulmonary disease with (acute) exacerbation Status: Acute Assessment and Plan: Acute COPD likely related to pneumonia -ABGs improving -continue BiPAP, steroids, antibiotics (3) Pneumonia: Qualifiers: Laterality: right Lung location: unspecified part of lung Pneumonia type: due to unspecified organism Qualified Code(s): J18.9 - Pneumonia, unspecified organism Code(s): J18.9 - Pneumonia, unspecified organism Status: Acute Assessment and Plan: chest x-ray and CTA chest shows bibasilar infiltrates/consolidation -continue antibiotics as above -will obtain sputum culture if possible (4) GERD (gastroesophageal reflux disease): Code(s): K21.9 - Gastro-esophageal reflux disease without esophagitis Status: Acute Assessment and Plan: Continue Protonix (5) Type 2 diabetes mellitus: Code(s): E11.9 - Type 2 diabetes mellitus without complications Status: Acute Assessment and Plan: Continue sliding scale insulin with Accu-Cheks -will repeat hemoglobin A1c in the morning (6) Hypothyroidism: Code(s): E03.9 - Hypothyroidism, unspecified Status: Acute Assessment and Plan: Continue levothyroxine (7) DVT prophylaxis: Code(s): Z29.9 - Encounter for prophylactic measures, unspecified Status: Acute Assessment and Plan: Heparin subcu Additional Plan Discussed with patient and his at bedside updated them with patient's condition and plan of care. Code status: Full code This dictation may have been done utilizing a voice recognition system. Attempts have been made to correct errors. However, there may be uncorrected grammatical, spelling, and recognition errors present. Due to a high probability of clinically significant, life threatening deterioration, the patient required my highest level of preparedness to intervene emergently and I personally spent this critical care time directly and personally managing the patient. This critical care time included obtaining a history; examining the patient; pulse oximetry; ordering and review of studies; arranging urgent treatment with development of a management plan; evaluation of patient's response to treatment; frequent reassessment; and discussions with other providers. It was exclusive of separately billable procedures and treating other patients and teaching time. Please see Assessment and Plan section and the rest of the note for further information on patient assessment and treatment Subjective Date/time seen: 03/09/21 11:33 Interval history: Reason for consult, COPD exacerbation, hypercapnic respiratory failure 03/09/2021: Patient was re-evaluated for hospitalist team. Patient has been on BiPAP through the night, adequate tidal volumes with worsening pCO2 levels on repeat ABGs. Patient is awake, alert, oriented x3, nonfocal. Able to answer questions appropriately, and follows simple commands. Patient is afebrile, adequate urine, hemodynamically stable. Made for the changes to BiPAP with the hand presser, repeat set of ABGs showed improvement in pH and pCO2 levels. Patient denies any chest pain, shortness of breath, abdominal pain, nausea, vomiting. S
[2021-03-09 11:34] LABS: Alveolar/Arterial O2 Gradient 136.5 mmHg; Base Excess ABG 4.8 mEq/l (+/-2.0); Fractional Inspired Oxygen 40 %; HCO3 ABG 34.5 mEq/l (22.0-26.0); Oxyhemoglobin 84.9 % THb (90.0-100.0); PO2 ABG 52.6 mmHg (80.0-100.0); PO2 FiO2 Ratio Arterial Blood 1.31 %; Total Hemoglobin 11.7 g/dL (12.0-18.0)
--- NOTE | 2021-03-09 11:34 | PM.CNPUL ---
Assessment and Plan Assessment and plan (1) Acute exacerbation of chronic obstructive pulmonary disease: Code(s): J44.1 - Chronic obstructive pulmonary disease with (acute) exacerbation Status: Acute Assessment and Plan: Patient with a history of centrilobular emphysema on his CT scan of the chest and history of tobacco exposure in the past. Currently patient presents with worsening shortness of breath and evidence of bibasilar consolidation on his CT scan. I will continue treatment for COPD exacerbation with pneumonia and since patient was recently discharged from the hospital I will treat for healthcare associated pneumonia with vancomycin, cefepime and azithromycin. At this time I will continue albuterol 2.5 mg nebs Q 6 hours, ipratropium 0.5 mg nebs q.6 hours and Solu-Medrol 40 mg IV q.6 hours. Will follow with you. (2) Acute respiratory failure with hypoxia and hypercapnia: Code(s): J96.01 - Acute respiratory failure with hypoxia; J96.02 - Acute respiratory failure with hypercapnia Status: Acute Assessment and Plan: Patient with acute on chronic hypercarbic respiratory failure with hypoxemia. Etiology of this appears to be pneumonia and/or COPD exacerbation. I have placed the patient on BiPAP rate of 26, 22/5, 40% and his repeat blood gas is improved at pH of 7.23/83/52. His per peripheral saturations were 95% and the poultry field service technician was concerned about a mixed venous blood draw. Patient has a history of chronically elevated serum bicarbonates that are greater than 32 since 10/26/20 and admitting blood gas of 7.23/78/82. We will reassess him later in the hospitalization For chronic hypercarbic respiratory failure after his acute pneumonia has been treated. History of Present Illness History of Present Illness Consult date: 03/09/21 Reason for consult: COPD Chief complaint: acute respiratory failure Narrative: this is a new pulmonary consult for COPD exacerbation. 75-year-old man with a history of tobacco use, small cell lung cancer treated in 1996 with chemo and radiation, COPD On 5 L nasal cannula oxygen, diabetes, hypothyroidism who presented to the emergency room in respiratory distress on 03/08. patient had a history of shortness of breath but denied any fever chills nausea vomiting or abdominal pain. Patient was in respiratory dysplastic and placed on BiPAP. His 1st blood gas on a BiPAP 12/5 was a pH of 7.23/78/82. patient had a white blood cell count of 12.[address] and patient had a CT angiogram of the chest that showed moderate upper lobe centrilobullar emphysema, right lower lobe greater than left lower lobe consolidation. Patient was admitted to the intensive care unit and treated for pneumonia with antibiotics of vancomycin, cefepime and azithromycin and a COPD exacerbation with bronchodilators and Solu-Medrol. A repeat blood gas on BiPAP / was 7.20/102/88. I saw the patient and he was awake and alert and said that he was breathing better in no respiratory distress. I changed his BiPAP to a respiratory rate of 26, 22/5 and 40%. This resulted in an increase in tidal volume to 750 and increasing his minute ventilation to 19.3. Repeat blood gas on these settings demonstrated a pH of 7.23/53/52 with peripheral saturations of 95%. I spoke with respiratory therapy and they were concerned about a mixed blood gas being obtained. DATA: EXAMINATION: CTA chest PE protocol DATE: 03/09/2021 00:37 INDICATION: Shortness of breath. Elevated d-dimer. TECHNIQUE: Computed tomography angiography (CTA) of the chest was performed with 100 mL Omnipaque-350 intravenous contrast timed to evaluate the pulmonary arteries. Coronal maximum intensity projection 3D-reconstructions were created by the technologist. Automated exposure control and iterative reconstruction technique were employed. Exam dose: 692.74 mGy-cm total exam DLP. COMPARISON: 03/08/2021 portable AP chest 06/17/2020 CT pulmo
[2021-03-09 11:37] LABS: Device NON-INVASIVE VENT; Modified Allen's Test Pass; Oxygen Saturation ABG 79.1 % (95.0-100.0); PCO2 ABG 83.6 mmHg (35.0-45.0); Site Drawn LEFT RADIAL; pH ABG 7.234 (7.350-7.450)
[2021-03-09 11:38] LABS: Non-Invasive Expiratory Pressure 5 CMH2O; Non-Invasive Inspiratory Pressure 22 CMH2O; Non-Invasive Vent Rate 26 /MIN
[2021-03-09] MEDS: methylPREDNISolone SOD SUCC 40 MG VIAL IV PUSH ×3 (12:38→23:11)
[2021-03-09 12:44] LABS: Glucose Point of Care 156 mg/dl (65-105)
[2021-03-09] MEDS: ALBUTEROL SULFATE NEB 2.5 MG/0.5 ML INH INHALATION ×2 (13:55→20:45)
[2021-03-09 18:31] LABS: Glucose Point of Care 153 mg/dl (65-105)
[2021-03-09] MEDS: guaiFENesin 12 HR 600 MG TABCR PO (20:32)
[2021-03-09 22:01] LABS: Glucose Point of Care 147 mg/dl (65-105)
[2021-03-10] VITALS (24 sets, daily range): BP systolic 113–142; BP diastolic 58–77; PULSE 105–123; RESP 18–27; TEMP 36.4–37.1; O2SAT 90–98
[2021-03-10] MEDS: ALBUTEROL SULFATE NEB 2.5 MG/0.5 ML INH INHALATION ×4 (02:32→21:28)
[2021-03-10] MEDS: IPRATROPIUM BR 0.02% INH SOLN 0.5 MG/2.5 ML VIAL INHALATION ×4 (02:32→21:28)
[2021-03-10 05:10] LABS: Basophils Percent Auto 0.1 % (0.2-1.2); Hematocrit 32.9 % (42.0-52.0); Immature Granulocyte Absolute 0.11 K/mm3 (0.00-0.031); Lymphocytes Absolute Auto 0.28 K/mm3 (0.9-3.2); Lymphocytes Percent Auto 2.7 % (18.3-44.2); Mean Corpuscular HGB Conc 30.4 g/dl (32-36); Mean Corpuscular Hemoglobin 26.4 pg (26-34); Mean Corpuscular Volume 86.8 fl (80-100); Mean Platelet Volume 9.2 fl (7.4-10.4); Monocytes Absolute Auto 0.5 K/mm3 (0.1-0.6); Monocytes Percent Auto 4.7 % (2.6-8.5); Neutrophils Absolute Auto 9.6 K/mm3 (1.3-6.7); Neutrophils Percent Auto 91.5 % (45.5-73.1); Platelet Count Result 383 k/mm3 (150-375); Red Blood Count 3.79 M/mm3 (4.6-6.20); Red Cell Distribution Width 14.6 % (11.5-14.5); White Blood Count 10.5 K/mm3 (4.5-10.0)
[2021-03-10 05:17] LABS: Alveolar/Arterial O2 Gradient 152.3 mmHg; Base Excess ABG 8.4 mEq/l (+/-2.0); Carboxyhemoglobin 0.3 % THb (0-2.0); Fractional Inspired Oxygen 40 %; HCO3 ABG 33.1 mEq/l (22.0-26.0); Methemoglobin ABG 0.4 %THb (0-1.5); Oxygen Content ABG 15.1 %vol (16.0-22.0); Oxygen Saturation ABG 96.3 % (95.0-100.0); Oxyhemoglobin 95.4 % THb (90.0-100.0); PCO2 ABG 46.3 mmHg (35.0-45.0); PO2 ABG 79.7 mmHg (80.0-100.0); PO2 FiO2 Ratio Arterial Blood 1.99 %; Reduced Hemoglobin 3.9 %THb (0-5.0); Total Hemoglobin 11.2 g/dL (12.0-18.0); pH ABG 7.472 (7.350-7.450)
[2021-03-10 05:18] LABS: Device NON-INVASIVE VENT; Modified Allen's Test Pass; Non-Invasive Expiratory Pressure 5 CMH2O; Non-Invasive Inspiratory Pressure 22 CMH2O; Non-Invasive Vent Rate 26 /MIN; Site Drawn LEFT RADIAL
[2021-03-10 05:19] LABS: Hemoglobin A1C 6.1 % (<5.7)
[2021-03-10 05:38] LABS: Anion Gap 7 mmol/L (8-16); Blood Urea Nitrogen 50 mg/dL (9-20); Calcium 9.5 mg/dL (8.4-10.2); Carbon Dioxide 34 mmol/L (22-30); Chloride 94 mmol/L (98-107); Estimated CRCL calculation 44 ml/min; Estimated Glomerular Filt Rate 50; Glucose 152 mg/dL (75-110); Magnesium 1.7 mg/dL (1.6-2.3); Phosphorus 2.1 mg/dL (2.5-4.5); Potassium 4.6 mmol/L (3.4-5.0); Sodium 135 mmol/L (137-145)
[2021-03-10 05:55] LABS: Hypochromasia 1+ (NORMAL); Platelet Estimate Adequate (Adequate)
[2021-03-10] MEDS: methylPREDNISolone SOD SUCC 40 MG VIAL IV PUSH ×2 (06:06→12:49)
[2021-03-10] MEDS: HEPARIN SODIUM 5,000 UNITS/ML VIAL 5000 UNITS SUB-Q ×3 (06:06→21:48)
[2021-03-10] MEDS: LEVOTHYROXINE SODIUM 50 MCG TABLET PO (06:06)
[2021-03-10] MEDS: POTASSIUM/PHOSPHORUS/SODIUM 1.5 GM PACKET 1 PACKET PO (09:10)
[2021-03-10] MEDS: TAMSULOSIN HCL 0.4 MG CAPSULE PO (09:11)
[2021-03-10] MEDS: NIACIN SA 500 MG TABLET PO (09:11)
[2021-03-10] MEDS: LOSARTAN POTASSIUM 25 MG TABLET 75 MG PO (09:11)
[2021-03-10] MEDS: PANTOPRAZOLE 40 MG TABLET PO (09:11)
[2021-03-10] MEDS: guaiFENesin 12 HR 600 MG TABCR PO ×2 (09:11→20:21)
[2021-03-10] MEDS: FERROUS SULFATE 324 MG TABLET PO (09:11)
[2021-03-10] MEDS: ATORVASTATIN 20 MG TABLET 60 MG PO (09:11)
[2021-03-10] MEDS: FENOFIBRATE NANOCRYSTALLIZED 145 MG TABLET PO (09:11)
[2021-03-10] MEDS: CALCIUM CARBONATE (OSCAL) 500 MG TABLET PO (09:11)
--- NOTE | 2021-03-10 09:18 | PM.IMPN ---
Progress Note: A&P Assessment and Plan (1) Acute respiratory failure with hypoxia and hypercapnia: Code(s): J96.01 - Acute respiratory failure with hypoxia; J96.02 - Acute respiratory failure with hypercapnia Status: Acute Assessment and Plan: Acute hypercapnic respiratory failure likely related to COPD exacerbation, pneumonia -chest x-ray, CTA chest reviewed -ABGs much improved this morning on BiPAP. Will alternate BiPAP with nasal cannula -CT scan does show bibasilar consolidation, continue vancomycin, cefepime and azithromycin -continue Solu-Medrol, -continue vancomycin, azithromycin and cefepime, -continue bronchodilator (2) Acute exacerbation of chronic obstructive pulmonary disease: Code(s): J44.1 - Chronic obstructive pulmonary disease with (acute) exacerbation Status: Acute Assessment and Plan: Acute COPD likely related to pneumonia -ABGs improving -continue BiPAP, steroids, antibiotics (3) Pneumonia: Qualifiers: Laterality: right Lung location: unspecified part of lung Pneumonia type: due to unspecified organism Qualified Code(s): J18.9 - Pneumonia, unspecified organism Code(s): J18.9 - Pneumonia, unspecified organism Status: Acute Assessment and Plan: chest x-ray and CTA chest shows bibasilar infiltrates/consolidation -continue antibiotics as above -will obtain sputum culture (4) GERD (gastroesophageal reflux disease): Code(s): K21.9 - Gastro-esophageal reflux disease without esophagitis Status: Acute Assessment and Plan: Continue Protonix (5) Type 2 diabetes mellitus: Code(s): E11.9 - Type 2 diabetes mellitus without complications Status: Acute Assessment and Plan: Continue sliding scale insulin with Accu-Cheks -hemoglobin A1c 6.9 this admission (6) Hypothyroidism: Code(s): E03.9 - Hypothyroidism, unspecified Status: Acute Assessment and Plan: Continue levothyroxine (7) DVT prophylaxis: Code(s): Z29.9 - Encounter for prophylactic measures, unspecified Status: Acute Assessment and Plan: Heparin subcu Additional Plan Will start diet -will alternate BiPAP with nasal cannula, also place BiPAP patient is asleep at night Code status: Full code Subjective Date/time seen: 03/10/21 09:18 Interval history: Interval history: Reason for consult, COPD exacerbation, hypercapnic respiratory failure 03/10/2021: Patient seen and examined the ICU. Off the BiPAP, on nasal cannula. Much more awake, alert, oriented, answers to questions appropriately and follows simple commands in all extremity. States he feels much better. This morning a 7.47/46/79/33/96%. Urine output has been adequate, patient is afebrile, hemodynamically stable. Positive bowel movements Review of Systems Review of Systems: All systems reviewed & are unremarkable except as noted in HPI and below Exam Const: General: comfortable and no acute distress Eyes: Sclera: sclerae normal Pupils: Equal, round and reactive pupils present Neck: Neck: supple Resp: Effort & Inspection: normal respiratory effort Auscultation: rhonchi and diminished lung sounds Cardio: Rate: tachycardic Rhythm: regular rhythm GI: Inspection: non-distended GI Palp: Yes Soft to palpation and No Tenderness to palpation present (GI) Auscultation: normal bowel sounds Urinary Catheter: Urinary Catheter: urine clear Skin: Other: Warm and dry Neuro: Cranial nerves: Yes Equal, round and reactive pupils present Other: Patient is awake, alert, oriented, answers to questions appropriately and follows simple commands Extrem: General: normal to inspection, no edema and no pedal edema Other: Patient has wound with scab on the right lower extremity, area around the scab is erythematous Psych: Mental Status: mental status grossly normal Affect: normal affect Objective Data Vital Signs Vital Signs: Vital Signs - 24 hr
[2021-03-10 09:26] LABS: Glucose Point of Care 162 mg/dl (65-105)
[2021-03-10 13:07] LABS: Glucose Point of Care 181 mg/dl (65-105)
--- NOTE | 2021-03-10 15:18 | PM.PNPUL ---
Progress Note: A&P Assessment and Plan (1) Acute exacerbation of chronic obstructive pulmonary disease: Code(s): J44.1 - Chronic obstructive pulmonary disease with (acute) exacerbation Status: Acute Assessment and Plan: 03/09 Patient with a history of centrilobular emphysema on his CT scan of the chest and history of tobacco exposure in the past. Currently patient presents with worsening shortness of breath and evidence of bibasilar consolidation on his CT scan. I will continue treatment for COPD exacerbation with pneumonia and since patient was recently discharged from the hospital I will treat for healthcare associated pneumonia with vancomycin, cefepime and azithromycin. At this time I will continue albuterol 2.5 mg nebs Q 6 hours, ipratropium 0.5 mg nebs q.6 hours and Solu-Medrol 40 mg IV q.6 hours. 03/10 Clinically improved and now off of continuous BiPAP and on nasal cannula 6 L. Patient's baseline is 5 L nasal cannula.. Patient with no wheezes on exam and I will discuss DS decrease his Solu-Medrol to 20 mg IV q.6 hours. I will continue his albuterol and ipratropium nebulizers a q.6 hours. I will continue treatment for healthcare associated with pneumonia with vancomycin, cefepime and azithromycin. Will follow with you. (2) Acute respiratory failure with hypoxia and hypercapnia: Code(s): J96.01 - Acute respiratory failure with hypoxia; J96.02 - Acute respiratory failure with hypercapnia Status: Acute Assessment and Plan: Patient has a history of chronically elevated serum bicarbonates that are greater than 32 since 10/26/20 and admitting blood gas of 7.23/78/82. Patient has chronic hypercarbic respiratory failure. he would benefit from BiPAP but he cannot tolerate this as the pressures are too high. I will initiate AVAPS mode of ventilation as this will prevent further deterioration and subsequent hospitalizations. 03/09 Patient with acute on chronic hypercarbic respiratory failure with hypoxemia. Etiology of this appears to be pneumonia and/or COPD exacerbation. I have placed the patient on BiPAP rate of 26, 22/5, 40% and his repeat blood gas is improved at pH of 7.23/83/52. His per peripheral saturations were 95% and the overhead door technician was concerned about a mixed venous blood draw. 03/10 Patient was on continuous BiPAP overnight and was taken off and placed on nasal cannula 6 L this morning. Patient had a blood gas on the BiPAP of pH 7.47/46/80 and this was on BiPAP rate of 26 with pressures 22/5. Patient stated that the BiPAP settings were very uncomfortable and he could not tolerate them in I placed him on AVAPS mode and titer to his tidal volume to 500, respiratory rate 14, EPAP 5, inspiratory pressure min 6, inspiratory pressure max 25, inspiratory time 0.8, rise of 1 which is our fastest and 40% FiO2. Patient stated that the settings were much more comfortable and that he could tolerate these. I will obtain ABG in the morning prior to removal of the AVAPS mode. I have contacted our coordinator to initiate home noninvasive noninvasive ventilation set up. Subjective Date/time seen: 03/10/21 15:18 Interval history: 75-year-old man with a history of tobacco use, small cell lung cancer treated in 1996 with chemo and radiation, COPD On 5 L nasal cannula oxygen, diabetes, hypothyroidism who presented to the emergency room in respiratory distress on 03/08. patient had a history of shortness of breath but denied any fever chills nausea vomiting or abdominal pain. Patient was in respiratory dysplastic and placed on BiPAP. His 1st blood gas on a BiPAP / was a pH of 7.23/78/82. patient had a white blood cell count of 12.[address] a CT angiogram of the chest that showed moderate upper lobe centrilobullar emphysema, right lower lobe greater than left lower lobe consolidation. Patient was admitted to the intensive care unit and treated for pneumonia with antibiotics of vancomyc
--- NOTE | 2021-03-10 15:46 | PCRCNOTE ---
Initiating arrangements for home [facility] unit with Thom. Phone
[2021-03-10] MEDS: INSULIN ASPART (*BKC) 100 UNITS/ML SUB-Q (16:42)
[2021-03-10 16:52] LABS: Glucose Point of Care 239 mg/dl (65-105)
[2021-03-10] MEDS: methylPREDNISolone SOD SUCC 40 MG VIAL 20 MG IV PUSH ×2 (18:29→23:07)
[2021-03-10 21:31] LABS: Glucose Point of Care 193 mg/dl (65-105)
[2021-03-11] VITALS (22 sets, daily range): BP systolic 127–143; BP diastolic 66–83; PULSE 100–117; RESP 16–24; TEMP 36.5–36.9; O2SAT 92–99
[2021-03-11] MEDS: IPRATROPIUM BR 0.02% INH SOLN 0.5 MG/2.5 ML VIAL INHALATION ×4 (02:33→20:48)
[2021-03-11] MEDS: ALBUTEROL SULFATE NEB 2.5 MG/0.5 ML INH INHALATION ×2 (02:33→08:23)
[2021-03-11 04:33] LABS: Estimated CRCL calculation 51 ml/min; Estimated Glomerular Filt Rate 59
[2021-03-11 04:38] LABS: Alveolar/Arterial O2 Gradient 163.6 mmHg; Base Excess ABG 7.7 mEq/l (+/-2.0); Fractional Inspired Oxygen 40 %; Oxygen Content ABG 15.5 %vol (16.0-22.0); Oxygen Saturation ABG 93.2 % (95.0-100.0); PCO2 ABG 49.3 mmHg (35.0-45.0); PO2 ABG 64.9 mmHg (80.0-100.0); PO2 FiO2 Ratio Arterial Blood 1.62 %; pH ABG 7.443 (7.350-7.450)
[2021-03-11 04:40] LABS: Device NASAL CANNULA; Modified Allen's Test Pass; Site Drawn RIGHT RADIAL
[2021-03-11] MEDS: methylPREDNISolone SOD SUCC 40 MG VIAL 20 MG IV PUSH ×2 (05:54→12:03)
[2021-03-11] MEDS: HEPARIN SODIUM 5,000 UNITS/ML VIAL 5000 UNITS SUB-Q ×3 (05:56→21:36)
[2021-03-11] MEDS: LEVOTHYROXINE SODIUM 50 MCG TABLET PO (06:16)
[2021-03-11 07:51] LABS: Glucose Point of Care 174 mg/dl (65-105)
[2021-03-11] MEDS: TAMSULOSIN HCL 0.4 MG CAPSULE PO (08:05)
[2021-03-11] MEDS: FENOFIBRATE NANOCRYSTALLIZED 145 MG TABLET PO (08:05)
[2021-03-11] MEDS: NIACIN SA 500 MG TABLET PO (08:05)
[2021-03-11] MEDS: FERROUS SULFATE 324 MG TABLET PO (08:06)
[2021-03-11] MEDS: LOSARTAN POTASSIUM 25 MG TABLET 75 MG PO (08:06)
[2021-03-11] MEDS: guaiFENesin 12 HR 600 MG TABCR PO ×2 (08:06→20:26)
[2021-03-11] MEDS: PANTOPRAZOLE 40 MG TABLET PO (08:06)
[2021-03-11] MEDS: ATORVASTATIN 20 MG TABLET 60 MG PO (08:07)
[2021-03-11] MEDS: CALCIUM CARBONATE (OSCAL) 500 MG TABLET PO (08:07)
--- NOTE | 2021-03-11 09:41 | PM.IMPN ---
Progress Note: A&P Assessment and Plan (1) Acute respiratory failure with hypoxia and hypercapnia: Code(s): J96.01 - Acute respiratory failure with hypoxia; J96.02 - Acute respiratory failure with hypercapnia Status: Acute Assessment and Plan: Acute hypercapnic respiratory failure likely related to COPD exacerbation, pneumonia -chest x-ray, CTA chest reviewed -ABGs remains stable on 5 L nasal cannula, O2 sats have been adequate -CT scan does show bibasilar consolidation, continue vancomycin, cefepime and azithromycin -continue Solu-Medrol, -continue vancomycin, azithromycin and cefepime, -continue bronchodilator (2) Acute exacerbation of chronic obstructive pulmonary disease: Code(s): J44.1 - Chronic obstructive pulmonary disease with (acute) exacerbation Status: Acute Assessment and Plan: Acute COPD likely related to pneumonia -ABGs improving -continue BiPAP, steroids, antibiotics -appreciate pulmonary following the patient (3) Pneumonia: Qualifiers: Laterality: right Lung location: unspecified part of lung Pneumonia type: due to unspecified organism Qualified Code(s): J18.9 - Pneumonia, unspecified organism Code(s): J18.9 - Pneumonia, unspecified organism Status: Acute Assessment and Plan: chest x-ray and CTA chest shows bibasilar infiltrates/consolidation -continue antibiotics as above (4) GERD (gastroesophageal reflux disease): Code(s): K21.9 - Gastro-esophageal reflux disease without esophagitis Status: Acute Assessment and Plan: Continue Protonix (5) Type 2 diabetes mellitus: Code(s): E11.9 - Type 2 diabetes mellitus without complications Status: Acute Assessment and Plan: Continue sliding scale insulin with Accu-Cheks -hemoglobin A1c 6.9 this admission (6) Hypothyroidism: Code(s): E03.9 - Hypothyroidism, unspecified Status: Acute Assessment and Plan: Continue levothyroxine (7) DVT prophylaxis: Code(s): Z29.9 - Encounter for prophylactic measures, unspecified Status: Acute Assessment and Plan: Heparin subcu Additional Plan Patient tolerating diet -diuresing well -patient wears 5 L oxygen at home via nasal cannula Code status: Full code Subjective Date/time seen: 03/11/21 09:41 Interval history: Interval history: Reason for consult, COPD exacerbation, hypercapnic respiratory failure 03/11/2021: Patient seen and examined for hospitalist group. Patient did not wear his BiPAP overnight, has remained on 5 L nasal cannula adequate O2 sats. States his breathing is back to baseline and feels better. Complains of cough with white sputum production. Patient has been participating with physical therapy. Patient is afebrile, hemodynamically stable with adequate urine output in response to diuresis Review of Systems Review of Systems: All systems reviewed & are unremarkable except as noted in HPI and below Exam Const: General: comfortable and no acute distress HENMT: Mouth: Yes moist mucous membranes Eyes: Sclera: sclerae normal Pupils: Equal, round and reactive pupils present Neck: Neck: supple Resp: Effort & Inspection: normal respiratory effort Auscultation: rhonchi and diminished lung sounds Cardio: Rate: tachycardic Rhythm: regular rhythm GI: Inspection: non-distended GI Palp: Yes Soft to palpation and No Tenderness to palpation present (GI) Auscultation: normal bowel sounds Urinary Catheter: Urinary Catheter: urine clear Skin: Other: Warm and dry Neuro: Cranial nerves: Yes Equal, round and reactive pupils present Other: Patient is awake, alert, oriented, answers to questions appropriately and follows simple commands Extrem: General: normal to inspection, no edema and no pedal edema Other: Patient has wound with scab on the right lower extremity, area around the scab is erythematous Psych: Mental Status: mental status grossly normal A
[2021-03-11 10:51] LABS: Vancomycin Trough 15.2 ug/mL (10.0-20.0)
[2021-03-11 11:58] LABS: Glucose Point of Care 210 mg/dl (65-105)
[2021-03-11] MEDS: INSULIN ASPART (*BKC) 100 UNITS/ML SUB-Q (12:01)
--- NOTE | 2021-03-11 14:20 | PM.PNPUL ---
Progress Note: A&P Assessment and Plan (1) Acute exacerbation of chronic obstructive pulmonary disease: Code(s): J44.1 - Chronic obstructive pulmonary disease with (acute) exacerbation Status: Acute Assessment and Plan: Patient with a history of centrilobular emphysema on his CT scan of the chest on 03/09/21 and history of tobacco exposure in the past. He is on 5 L NC oxygen 224/7 and has ECHEVARRIA at 5 yards on a good day. I have no PFTs. Currently patient presents with worsening shortness of breath and evidence of bibasilar consolidation on his CT scan. 03/09 I will continue treatment for COPD exacerbation with pneumonia and since patient was recently discharged from the hospital I will treat for healthcare associated pneumonia with vancomycin, cefepime and azithromycin. At this time I will continue albuterol 2.5 mg nebs Q 6 hours, ipratropium 0.5 mg nebs q.6 hours and Solu-Medrol 40 mg IV q.6 hours. 03/10 Clinically improved and now off of continuous BiPAP and on nasal cannula 6 L. Patient's baseline is 5 L nasal cannula.. Patient with no wheezes on exam and I will discuss DS decrease his Solu-Medrol to 20 mg IV q.6 hours. I will continue his albuterol and ipratropium nebulizers a q.6 hours. I will continue treatment for healthcare associated with pneumonia with vancomycin, cefepime and azithromycin. 03/11 He remained on 5 L nasal cannula for the remainder of the night and had a blood gas this morning that demonstrated a pH of 7.44/49/65. He states that his breathing is slowly improving. White blood cell count 10.5, chest x-ray no change in his diffuse interstitial infiltrates. I will change him to prednisone 50 Q day (steroids started 03/09) and continue ipratropium nebulizers a q.6 hours. patient remains tachycardic and he is without wheezes and I will DC albuterol, if he has wheezing will start levalbuterol 1.25 neb Q 6 hours. I will continue treatment for healthcare associated with pneumonia with vancomycin, cefepime and azithromycin (antibiotics started 03/08). Will follow with you. (2) Acute respiratory failure with hypoxia and hypercapnia: Code(s): J96.01 - Acute respiratory failure with hypoxia; J96.02 - Acute respiratory failure with hypercapnia Status: Acute Assessment and Plan: Patient has a history of chronically elevated serum bicarbonates that are greater than 32 since 10/26/20 and admitting blood gas of 7.23/78/82. Patient has chronic hypercarbic respiratory failure. he would benefit from BiPAP but he cannot tolerate this as the pressures are too high. I will initiate AVAPS mode of ventilation as this will prevent further deterioration and subsequent hospitalizations. 03/09 Patient with acute on chronic hypercarbic respiratory failure with hypoxemia. Etiology of this appears to be pneumonia and/or COPD exacerbation. I have placed the patient on BiPAP rate of 26, 22/5, 40% and his repeat blood gas is improved at pH of 7.23/83/52. His per peripheral saturations were 95% and the water and fire technician was concerned about a mixed venous blood draw. 03/10 Patient was on continuous BiPAP overnight and was taken off and placed on nasal cannula 6 L this morning. Patient had a blood gas on the BiPAP of pH 7.47/46/80 and this was on BiPAP rate of 26 with pressures 22/5. Patient stated that the BiPAP settings were very uncomfortable and he could not tolerate them in I placed him on AVAPS mode and titer to his tidal volume to 500, respiratory rate 14, EPAP 5, inspiratory pressure min 6, inspiratory pressure max 25, inspiratory time 0.8, rise of 1 which is our fastest and 40% FiO2. Patient stated that the settings were much more comfortable and that he could tolerate these. I will obtain ABG in the morning prior to removal of the AVAPS mode. I have contacted our coordinator to initiate home noninvasive noninvasive ventilation set up. 03/11 Patient was tried on his AVAPS settings last night but he could not ronnie
[2021-03-11] MEDS: predniSONE 10 MG TABLET 50 MG PO (15:19)
[2021-03-11 17:05] LABS: Glucose Point of Care 144 mg/dl (65-105)
[2021-03-11 20:57] LABS: Glucose Point of Care 247 mg/dl (65-105)
[2021-03-12] VITALS (17 sets, daily range): BP systolic 139–149; BP diastolic 70–76; PULSE 92–124; RESP 15–23; TEMP 35.8–36.4; O2SAT 88–99
[2021-03-12] MEDS: IPRATROPIUM BR 0.02% INH SOLN 0.5 MG/2.5 ML VIAL INHALATION ×3 (02:10→20:28)
[2021-03-12 04:22] LABS: Alveolar/Arterial O2 Gradient 113.2 mmHg; Base Excess ABG 9.8 mEq/l (+/-2.0); Carboxyhemoglobin 0.3 % THb (0-2.0); Fractional Inspired Oxygen 40 %; HCO3 ABG 37.7 mEq/l (22.0-26.0); Methemoglobin ABG 0.4 %THb (0-1.5); Oxygen Content ABG 16.1 %vol (16.0-22.0); Oxygen Saturation ABG 96.5 % (95.0-100.0); Oxyhemoglobin 95.6 % THb (90.0-100.0); PO2 ABG 92.5 mmHg (80.0-100.0); PO2 FiO2 Ratio Arterial Blood 2.31 %; Reduced Hemoglobin 3.7 %THb (0-5.0); Total Hemoglobin 11.9 g/dL (12.0-18.0); pH ABG 7.355 (7.350-7.450)
[2021-03-12 04:23] LABS: PCO2 ABG 69.1 mmHg (35.0-45.0); Site Drawn RIGHT RADIAL
[2021-03-12 04:24] LABS: Device NASAL CANNULA; Modified Allen's Test Pass
[2021-03-12 04:32] LABS: Hematocrit 35.2 % (42.0-52.0); Hemoglobin 10.8 g/dL (14.0-18.0); Immature Granulocyte Absolute 0.08 K/mm3 (0.00-0.031); Immature Granulocyte Percent A 0.8 % (0-0.5); Lymphocytes Absolute Auto 0.47 K/mm3 (0.9-3.2); Lymphocytes Percent Auto 4.6 % (18.3-44.2); Mean Corpuscular HGB Conc 30.7 g/dl (32-36); Mean Corpuscular Hemoglobin 26.5 pg (26-34); Mean Corpuscular Volume 86.5 fl (80-100); Mean Platelet Volume 9.4 fl (7.4-10.4); Monocytes Percent Auto 10.1 % (2.6-8.5); Neutrophils Absolute Auto 8.6 K/mm3 (1.3-6.7); Neutrophils Percent Auto 84.5 % (45.5-73.1); Platelet Count Result 385 k/mm3 (150-375); Red Blood Count 4.07 M/mm3 (4.6-6.20); Red Cell Distribution Width 14.7 % (11.5-14.5); White Blood Count 10.1 K/mm3 (4.5-10.0)
[2021-03-12 05:25] LABS: Alanine Aminotransferase 12 U/L (4-50); Albumin Level 3.6 g/dL (3.5-5.1); Alkaline Phosphatase 52 U/L (38-126); Anion Gap 1 mmol/L (8-16); Aspartate Amino Transferase 17 U/L (17-59); Bilirubin,Total 0.3 mg/dL (0.2-1.3); Blood Urea Nitrogen 41 mg/dL (9-20); Carbon Dioxide 38 mmol/L (22-30); Chloride 95 mmol/L (98-107); Estimated CRCL calculation 55 ml/min; Estimated Glomerular Filt Rate > 60; Glucose 149 mg/dL (75-110); Potassium 5.8 mmol/L (3.4-5.0); Sodium 134 mmol/L (137-145)
[2021-03-12] MEDS: HEPARIN SODIUM 5,000 UNITS/ML VIAL 5000 UNITS SUB-Q ×3 (06:40→21:01)
[2021-03-12] MEDS: LEVOTHYROXINE SODIUM 50 MCG TABLET PO (06:41)
[2021-03-12] MEDS: predniSONE 10 MG TABLET 50 MG PO (07:55)
[2021-03-12] MEDS: LOSARTAN POTASSIUM 25 MG TABLET 75 MG PO (07:56)
[2021-03-12] MEDS: FENOFIBRATE NANOCRYSTALLIZED 145 MG TABLET PO (07:56)
[2021-03-12] MEDS: CALCIUM CARBONATE (OSCAL) 500 MG TABLET PO (07:57)
[2021-03-12] MEDS: guaiFENesin 12 HR 600 MG TABCR PO ×2 (07:57→21:00)
[2021-03-12] MEDS: NIACIN SA 500 MG TABLET PO (07:57)
[2021-03-12] MEDS: FERROUS SULFATE 324 MG TABLET PO (07:57)
[2021-03-12] MEDS: TAMSULOSIN HCL 0.4 MG CAPSULE PO (07:58)
[2021-03-12] MEDS: ATORVASTATIN 20 MG TABLET 60 MG PO (07:58)
[2021-03-12] MEDS: PANTOPRAZOLE 40 MG TABLET PO (07:58)
[2021-03-12 08:20] LABS: Glucose Point of Care 176 mg/dl (65-105)
[2021-03-12] MEDS: CALCIUM GLUC 1,000 MG/NS 50 ML 1,000 MG/50 ML BAG 100 MG IVPB (09:06)
[2021-03-12] MEDS: SODIUM POLYSTYRENE SULFONONATE 15 GM/60 ML BTL PO (09:06)
--- NOTE | 2021-03-12 10:11 | PM.PNPUL ---
Progress Note: A&P Assessment and Plan (1) Acute exacerbation of chronic obstructive pulmonary disease: Code(s): J44.1 - Chronic obstructive pulmonary disease with (acute) exacerbation Status: Acute Assessment and Plan: Patient with a history of centrilobular emphysema on his CT scan of the chest on 03/09/21 and history of tobacco exposure in the past. He is on 5 L NC oxygen 08/04 and has ECHEVARRIA at 5 yards on a good day. I have no PFTs. Currently patient presents with worsening shortness of breath and evidence of bibasilar consolidation on his CT scan. 03/09 I will continue treatment for COPD exacerbation with pneumonia and since patient was recently discharged from the hospital I will treat for healthcare associated pneumonia with vancomycin, cefepime and azithromycin. At this time I will continue albuterol 2.5 mg nebs Q 6 hours, ipratropium 0.5 mg nebs q.6 hours and Solu-Medrol 40 mg IV q.6 hours. 03/10 Clinically improved and now off of continuous BiPAP and on nasal cannula 6 L. Patient's baseline is 5 L nasal cannula.. Patient with no wheezes on exam and I will discuss DS decrease his Solu-Medrol to 20 mg IV q.6 hours. I will continue his albuterol and ipratropium nebulizers a q.6 hours. I will continue treatment for healthcare associated with pneumonia with vancomycin, cefepime and azithromycin. 03/11 He remained on 5 L nasal cannula for the remainder of the night and had a blood gas this morning that demonstrated a pH of 7.44/49/65. He states that his breathing is slowly improving. White blood cell count 10.5, chest x-ray no change in his diffuse interstitial infiltrates. I will change him to prednisone 50 Q day (steroids started 03/09) and continue ipratropium nebulizers a q.6 hours. patient remains tachycardic and he is without wheezes and I will DC albuterol, if he has wheezing will start levalbuterol 1.25 neb Q 6 hours. I will continue treatment for healthcare associated with pneumonia with vancomycin, cefepime and azithromycin (antibiotics started 03/08). 03/12 Slept well on NC 5L with sats 99%. Awake and states He is breathing better than he has in the last few months. He was out of bed to the chair yesterday. White blood cell 10.1 lower extremity Dopplers on 03/11 were negative. Blood gas this morning on 5 L nasal cannula was 7.35/69/93. Continue prednisone 50 PO, continue ipratropium nebulizers. Patient has had no wheezing off of the albuterol and his heart rate has improved to 95-105. DC azithromycin after tonight dose. Will follow with you. (2) Acute respiratory failure with hypoxia and hypercapnia: Code(s): J96.01 - Acute respiratory failure with hypoxia; J96.02 - Acute respiratory failure with hypercapnia Status: Acute Assessment and Plan: Patient has a history of chronically elevated serum bicarbonates that are greater than 32 since 10/26/20 and admitting blood gas of 7.23/78/82. Patient has chronic hypercarbic respiratory failure. he would benefit from BiPAP but he cannot tolerate this as the pressures are too high. I will initiate AVAPS mode of ventilation as this will prevent further deterioration and subsequent hospitalizations. 03/09 Patient with acute on chronic hypercarbic respiratory failure with hypoxemia. Etiology of this appears to be pneumonia and/or COPD exacerbation. I have placed the patient on BiPAP rate of 26, 22/5, 40% and his repeat blood gas is improved at pH of 7.23/83/52. His per peripheral saturations were 95% and the seed technician was concerned about a mixed venous blood draw. 03/10 Patient was on continuous BiPAP overnight and was taken off and placed on nasal cannula 6 L this morning. Patient had a blood gas on the BiPAP of pH 7.47/46/80 and this was on BiPAP rate of 26 with pressures 22/5. Patient stated that the BiPAP settings were very uncomfortable and he could not tolerate them in I placed him on AVAPS mode and titer to his tidal volume to 500, respirator
[2021-03-12] MEDS: INSULIN ASPART (*BKC) 100 UNITS/ML SUB-Q (11:45)
[2021-03-12 11:53] LABS: Glucose Point of Care 203 mg/dl (65-105)
--- NOTE | 2021-03-12 12:20 | PC.NURSE ---
This patient, Zak Negrete, was received from [ ICU] on 03/12/21 at 1221. Patient/family oriented to unit policies and routines
--- NOTE | 2021-03-12 12:25 | PM.IMPN ---
Progress Note: A&P Assessment and Plan (1) Acute respiratory failure with hypoxia and hypercapnia: Code(s): J96.01 - Acute respiratory failure with hypoxia; J96.02 - Acute respiratory failure with hypercapnia Status: Acute Assessment and Plan: Currently on BiPAP CT of the lung significant for bilateral pleural effusions as well as lung infiltrates and consolidation Due to recent hospitalization patient has been started on cefepime and Zithromax and vancomycin Await blood cultures Supportive care Continue to monitor BMP only slightly elevated Echocardiogram from 07/05 reviewed ejection fraction of 50-55% 03/12/12:40 75-year-old male with healthcare associated pneumonia being treated with vancomycin, azithromycin, and cefepime, patient states is feeling much not a short of breath and cough is also better, patient is seen by pulmonology recommending to DC azithromycin today continue prednisone 50 mg q.day, ipratropium and stopped albuterol due to tachycardia, encourage patient to out of the bed and physical activity, will continue to monitor and further recommendation to follow. (2) Acute exacerbation of chronic obstructive pulmonary disease: Code(s): J44.1 - Chronic obstructive pulmonary disease with (acute) exacerbation Status: Acute Assessment and Plan: Nebulizer treatments Systemic steroids (3) Abnormal chest CT: Code(s): R93.89 - Abnormal findings on diagnostic imaging of other specified body structures Status: Acute Assessment and Plan: Patient with consolidation and pleural effusions (4) Type 2 diabetes mellitus: Code(s): E11.9 - Type 2 diabetes mellitus without complications Status: Acute Assessment and Plan: Holding metformin Insulin sliding scale as needed Accu-Cheks AC and HS (5) Peripheral neuropathy: Code(s): G62.9 - Polyneuropathy, unspecified Status: Chronic Assessment and Plan: On no meds (6) Osteoarthritis: Code(s): M19.90 - Unspecified osteoarthritis, unspecified site Status: Chronic Assessment and Plan: Tylenol p.r.n. (7) Hypertension: Code(s): I10 - Essential (primary) hypertension Status: Chronic Assessment and Plan: Continue home meds Continue to monitor (8) BPH (benign prostatic hyperplasia): Qualifiers: Lower urinary tract symptom presence: symptoms absent Qualified Code(s): N40.0 - Benign prostatic hyperplasia without lower urinary tract symptoms Code(s): N40.0 - Benign prostatic hyperplasia without lower urinary tract symptoms Status: Chronic Assessment and Plan: Continue Flomax (9) GERD (gastroesophageal reflux disease): Code(s): K21.9 - Gastro-esophageal reflux disease without esophagitis Status: Acute Assessment and Plan: Continue omeprazole Subjective Date/time seen: 12:40 75-year-old male with healthcare associated pneumonia being treated with vancomycin, azithromycin, and cefepime, patient states is feeling much not a short of breath and cough is also better, patient is seen by pulmonology recommending to DC azithromycin today continue prednisone 50 mg q.day, ipratropium and stopped albuterol due to tachycardia, encourage patient to out of the bed and physical activity, will continue to monitor and further recommendation to follow. Review of Systems Review of Systems: All systems reviewed & are unremarkable except as noted in HPI and below Exam Narrative: Exam Narrative: Patient is comfortable, NAD HEENT: eyes are clear and none icteric LUNGS: bilateral fair air entry with rhonchi and wheeze HEART: RR S1S2 ABD: BS+, Soft and nontender Lower extremities: no edema SKIN: nonjaundiced Neuro: grossly intact. Objective Data Vital Signs Vital Signs: Vital Signs - 24 hr 03/11/21 15:04 03/11/21 15:12 03/11/21 15:35 Temperature Pulse Rate 100 104 H 111 H Pulse Rate [With Activity
--- NOTE | 2021-03-12 12:26 | PC.NURSE ---
This patient, Zak Negrete, was transferred to [ [id number] ] on 03/12/21 at 1200. Personal belongings sent with patient. Report given to [ JAZMYNE Benavidez. ]. Appropriate documentation sent with patient.
[2021-03-12 18:39] LABS: Albumin Level 3.8 g/dL (3.5-5.1); Anion Gap 3 mmol/L (8-16); Blood Urea Nitrogen 38 mg/dL (9-20); Calcium 10.3 mg/dL (8.4-10.2); Carbon Dioxide 37 mmol/L (22-30); Chloride 93 mmol/L (98-107); Estimated CRCL calculation 55 ml/min; Estimated Glomerular Filt Rate > 60; Glucose 200 mg/dL (75-110); Phosphorus 2.9 mg/dL (2.5-4.5); Potassium 5.8 mmol/L (3.4-5.0); Sodium 133 mmol/L (137-145)
[2021-03-12 18:59] LABS: Glucose Point of Care 181 mg/dl (65-105)
[2021-03-12 22:15] LABS: Glucose Point of Care 299 mg/dl (65-105)
[2021-03-13] VITALS (10 sets, daily range): BP systolic 125–139; BP diastolic 50–68; PULSE 93–120; RESP 18–22; TEMP 35.7–36.3; O2SAT 92–98
[2021-03-13] MEDS: HEPARIN SODIUM 5,000 UNITS/ML VIAL 5000 UNITS SUB-Q ×3 (05:39→21:09)
[2021-03-13] MEDS: LEVOTHYROXINE SODIUM 50 MCG TABLET PO (05:39)
--- NOTE | 2021-03-13 05:45 | PCRCNOTE ---
Window of time for administration has passed. See next scheduled administration.
[2021-03-13 05:51] LABS: Hematocrit 38.7 % (42.0-52.0); Hemoglobin 11.3 g/dL (14.0-18.0); Mean Corpuscular HGB Conc 29.2 g/dl (32-36); Mean Corpuscular Volume 89.2 fl (80-100); Mean Platelet Volume 9.2 fl (7.4-10.4); Platelet Count Result 373 k/mm3 (150-375); Red Blood Count 4.34 M/mm3 (4.6-6.20); Red Cell Distribution Width 14.6 % (11.5-14.5); White Blood Count 9.8 K/mm3 (4.5-10.0)
[2021-03-13 06:02] LABS: Anion Gap 3 mmol/L (8-16); Blood Urea Nitrogen 40 mg/dL (9-20); Calcium 9.9 mg/dL (8.4-10.2); Carbon Dioxide 39 mmol/L (22-30); Chloride 92 mmol/L (98-107); Estimated CRCL calculation 51 ml/min; Estimated Glomerular Filt Rate 59; Glucose 97 mg/dL (75-110); Potassium 5.2 mmol/L (3.4-5.0); Sodium 134 mmol/L (137-145)
[2021-03-13 07:41] LABS: Glucose Point of Care 112 mg/dl (65-105)
[2021-03-13] MEDS: predniSONE 10 MG TABLET 50 MG PO (09:22)
[2021-03-13] MEDS: FERROUS SULFATE 324 MG TABLET PO (09:22)
[2021-03-13] MEDS: NIACIN SA 500 MG TABLET PO (09:23)
[2021-03-13] MEDS: FENOFIBRATE NANOCRYSTALLIZED 145 MG TABLET PO (09:23)
[2021-03-13] MEDS: CALCIUM CARBONATE (OSCAL) 500 MG TABLET PO (09:23)
[2021-03-13] MEDS: PANTOPRAZOLE 40 MG TABLET PO (09:23)
[2021-03-13] MEDS: ATORVASTATIN 20 MG TABLET 60 MG PO (09:23)
[2021-03-13] MEDS: guaiFENesin 12 HR 600 MG TABCR PO ×2 (09:23→21:09)
[2021-03-13] MEDS: TAMSULOSIN HCL 0.4 MG CAPSULE PO (09:24)
--- NOTE | 2021-03-13 11:03 | PM.PNPUL ---
Progress Note: A&P Assessment and Plan (1) Acute exacerbation of chronic obstructive pulmonary disease: Code(s): J44.1 - Chronic obstructive pulmonary disease with (acute) exacerbation Status: Acute Assessment and Plan: Patient with a history of centrilobular emphysema on his CT scan of the chest on 03/09/21 and history of tobacco exposure in the past. He is on 5 L NC oxygen 08/04 and has ECHEVARRIA at 5 yards on a good day. I have no PFTs. Currently patient presents with worsening shortness of breath and evidence of bibasilar consolidation on his CT scan. 03/09 I will continue treatment for COPD exacerbation with pneumonia and since patient was recently discharged from the hospital I will treat for healthcare associated pneumonia with vancomycin, cefepime and azithromycin. At this time I will continue albuterol 2.5 mg nebs Q 6 hours, ipratropium 0.5 mg nebs q.6 hours and Solu-Medrol 40 mg IV q.6 hours. 03/10 Clinically improved and now off of continuous BiPAP and on nasal cannula 6 L. Patient's baseline is 5 L nasal cannula.. Patient with no wheezes on exam and I will discuss DS decrease his Solu-Medrol to 20 mg IV q.6 hours. I will continue his albuterol and ipratropium nebulizers a q.6 hours. I will continue treatment for healthcare associated with pneumonia with vancomycin, cefepime and azithromycin. 03/11 He remained on 5 L nasal cannula for the remainder of the night and had a blood gas this morning that demonstrated a pH of 7.44/49/65. He states that his breathing is slowly improving. White blood cell count 10.5, chest x-ray no change in his diffuse interstitial infiltrates. I will change him to prednisone 50 Q day (steroids started 03/09) and continue ipratropium nebulizers a q.6 hours. patient remains tachycardic and he is without wheezes and I will DC albuterol, if he has wheezing will start levalbuterol 1.25 neb Q 6 hours. I will continue treatment for healthcare associated with pneumonia with vancomycin, cefepime and azithromycin (antibiotics started 03/08). 03/12 Slept well on NC 5L with sats 99%. Awake and states He is breathing better than he has in the last few months. He was out of bed to the chair yesterday. White blood cell 10.1 lower extremity Dopplers on 03/11 were negative. Blood gas this morning on 5 L nasal cannula was 7.35/69/93. Continue prednisone 50 PO, continue ipratropium nebulizers. Patient has had no wheezing off of the albuterol and his heart rate has improved to 95-105. DC azithromycin after tonight dose. 03/13 Patient continues to improve and is currently on 5 L nasal cannula with saturations 98%. He is currently out of the bed in a chair his white blood cell count is 9.8. Will change to anoro ellipta 62.5/today. Today is day 5 steroids and will DC. If stable possible DC home on 03/14 on these pulmonary medications: Anoro Ellipta 62.5/25 mcg at 1 puff Q day Rescue albuterol 2 puff Q 4 Hours PRN SOB or wheezing Levaquin 750 mg PO Q day for 5 days Oxygen per day and night per home O2 assessment and overnight oximetry. Will follow with you. (2) Acute respiratory failure with hypoxia and hypercapnia: Code(s): J96.01 - Acute respiratory failure with hypoxia; J96.02 - Acute respiratory failure with hypercapnia Status: Acute Assessment and Plan: Patient has a history of chronically elevated serum bicarbonates that are greater than 32 since 10/26/20 and admitting blood gas of 7.23/78/82. Patient has chronic hypercarbic respiratory failure. he would benefit from BiPAP but he cannot tolerate this as the pressures are too high. I will initiate AVAPS mode of ventilation as this will prevent further deterioration and subsequent hospitalizations. 03/09 Patient with acute on chronic hypercarbic respiratory failure with hypoxemia. Etiology of this appears to be pneumonia and/or COPD exacerbation. I have placed the patient on BiPAP rate of 26, 22/5, 40% and his repeat blood gas is im
[2021-03-13 12:07] LABS: Glucose Point of Care 156 mg/dl (65-105)
[2021-03-13] MEDS: UMECLIDINIUM/VILANTEROL 62.5-25 MCG ELLIPTA 1 PUFF INHALATION (14:58)
--- NOTE | 2021-03-13 15:43 | PM.IMPN ---
Progress Note: A&P Assessment and Plan (1) Acute respiratory failure with hypoxia and hypercapnia: Code(s): J96.01 - Acute respiratory failure with hypoxia; J96.02 - Acute respiratory failure with hypercapnia Status: Acute Assessment and Plan: Currently on BiPAP CT of the lung significant for bilateral pleural effusions as well as lung infiltrates and consolidation Due to recent hospitalization patient has been started on cefepime and Zithromax and vancomycin Await blood cultures Supportive care Continue to monitor BMP only slightly elevated Echocardiogram from 07/05 reviewed ejection fraction of 50-55% 03/13/21 15:43 03/12 75-year-old male with healthcare associated pneumonia being treated with vancomycin, azithromycin, and cefepime, patient states is feeling much not a short of breath and cough is also better, patient is seen by pulmonology recommending to DC azithromycin today continue prednisone 50 mg q.day, ipratropium and stopped albuterol due to tachycardia, encourage patient to out of the bed and physical activity, will continue to monitor and further recommendation to follow. 03/13 today patient is feeling much better is requiring 5 L of oxygen nasal canula, seen by warp starter patient overall symptoms have improved, patient is completed 5 day course of steroid was stopped. encouraged out of the bed and active as tolerated, monitor is recommended if clinically stable may discharge the patient tomorrow with following medications: Anoro Ellipta 62.5/25 mcg at 1 puff Q day Rescue albuterol 2 puff Q 4 Hours PRN SOB or wheezing Levaquin 750 mg PO Q day for 5 days Oxygen per day and night per home O2 assessment and overnight oximetry. (2) Acute exacerbation of chronic obstructive pulmonary disease: Code(s): J44.1 - Chronic obstructive pulmonary disease with (acute) exacerbation Status: Acute Assessment and Plan: Nebulizer treatments Systemic steroids (3) Abnormal chest CT: Code(s): R93.89 - Abnormal findings on diagnostic imaging of other specified body structures Status: Acute Assessment and Plan: Patient with consolidation and pleural effusions (4) Type 2 diabetes mellitus: Code(s): E11.9 - Type 2 diabetes mellitus without complications Status: Acute Assessment and Plan: Holding metformin Insulin sliding scale as needed Accu-Cheks AC and HS (5) Peripheral neuropathy: Code(s): G62.9 - Polyneuropathy, unspecified Status: Chronic Assessment and Plan: On no meds (6) Osteoarthritis: Code(s): M19.90 - Unspecified osteoarthritis, unspecified site Status: Chronic Assessment and Plan: Tylenol p.r.n. (7) Hypertension: Code(s): I10 - Essential (primary) hypertension Status: Chronic Assessment and Plan: Continue home meds Continue to monitor (8) BPH (benign prostatic hyperplasia): Qualifiers: Lower urinary tract symptom presence: symptoms absent Qualified Code(s): N40.0 - Benign prostatic hyperplasia without lower urinary tract symptoms Code(s): N40.0 - Benign prostatic hyperplasia without lower urinary tract symptoms Status: Chronic Assessment and Plan: Continue Flomax (9) GERD (gastroesophageal reflux disease): Code(s): K21.9 - Gastro-esophageal reflux disease without esophagitis Status: Acute Assessment and Plan: Continue omeprazole Subjective Date/time seen: 03/13/21 15:43 03/12 75-year-old male with healthcare associated pneumonia being treated with vancomycin, azithromycin, and cefepime, patient states is feeling much not a short of breath and cough is also better, patient is seen by pulmonology recommending to DC azithromycin today continue prednisone 50 mg q.day, ipratropium and stopped albuterol due to tachycardia, encourage patient to out of the bed and physical activity, will continue to monitor and further recommend
[2021-03-13 17:49] LABS: Glucose Point of Care 197 mg/dl (65-105)
[2021-03-13 21:21] LABS: Glucose Point of Care 338 mg/dl (65-105)
[2021-03-14] VITALS (16 sets, daily range): BP systolic 103–136; BP diastolic 49–59; PULSE 87–124; RESP 20–24; TEMP 36.2–37; O2SAT 87–94
[2021-03-14] MEDS: LEVOTHYROXINE SODIUM 50 MCG TABLET PO (06:02)
[2021-03-14] MEDS: HEPARIN SODIUM 5,000 UNITS/ML VIAL 5000 UNITS SUB-Q ×3 (06:02→21:51)
[2021-03-14] MEDS: TAMSULOSIN HCL 0.4 MG CAPSULE PO (07:53)
[2021-03-14] MEDS: guaiFENesin 12 HR 600 MG TABCR PO ×2 (07:53→21:51)
[2021-03-14] MEDS: PANTOPRAZOLE 40 MG TABLET PO (07:54)
[2021-03-14] MEDS: ATORVASTATIN 20 MG TABLET 60 MG PO (07:54)
[2021-03-14] MEDS: FERROUS SULFATE 324 MG TABLET PO (07:54)
[2021-03-14] MEDS: NIACIN SA 500 MG TABLET PO (07:54)
[2021-03-14] MEDS: FENOFIBRATE NANOCRYSTALLIZED 145 MG TABLET PO (07:54)
[2021-03-14] MEDS: UMECLIDINIUM/VILANTEROL 62.5-25 MCG ELLIPTA 1 PUFF INHALATION (07:55)
[2021-03-14] MEDS: CALCIUM CARBONATE (OSCAL) 500 MG TABLET PO (07:56)
[2021-03-14 08:03] LABS: Glucose Point of Care 128 mg/dl (65-105)
--- NOTE | 2021-03-14 09:06 | PM.PNPUL ---
Progress Note: A&P Assessment and Plan (1) Acute exacerbation of chronic obstructive pulmonary disease: Code(s): J44.1 - Chronic obstructive pulmonary disease with (acute) exacerbation Status: Acute Assessment and Plan: Patient with a history of centrilobular emphysema on his CT scan of the chest on 03/09/21 and history of tobacco exposure in the past. He is on 5 L NC oxygen 08/04 and has ECHEVARRIA at 5 yards on a good day. I have no PFTs. Currently patient presents with worsening shortness of breath and evidence of bibasilar consolidation on his CT scan. 03/09 I will continue treatment for COPD exacerbation with pneumonia and since patient was recently discharged from the hospital I will treat for healthcare associated pneumonia with vancomycin, cefepime and azithromycin. At this time I will continue albuterol 2.5 mg nebs Q 6 hours, ipratropium 0.5 mg nebs q.6 hours and Solu-Medrol 40 mg IV q.6 hours. 03/10 Clinically improved and now off of continuous BiPAP and on nasal cannula 6 L. Patient's baseline is 5 L nasal cannula.. Patient with no wheezes on exam and I will discuss DS decrease his Solu-Medrol to 20 mg IV q.6 hours. I will continue his albuterol and ipratropium nebulizers a q.6 hours. I will continue treatment for healthcare associated with pneumonia with vancomycin, cefepime and azithromycin. 03/11 He remained on 5 L nasal cannula for the remainder of the night and had a blood gas this morning that demonstrated a pH of 7.44/49/65. He states that his breathing is slowly improving. White blood cell count 10.5, chest x-ray no change in his diffuse interstitial infiltrates. I will change him to prednisone 50 Q day (steroids started 03/09) and continue ipratropium nebulizers a q.6 hours. patient remains tachycardic and he is without wheezes and I will DC albuterol, if he has wheezing will start levalbuterol 1.25 neb Q 6 hours. I will continue treatment for healthcare associated with pneumonia with vancomycin, cefepime and azithromycin (antibiotics started 03/08). 03/12 Slept well on NC 5L with sats 99%. Awake and states He is breathing better than he has in the last few months. He was out of bed to the chair yesterday. White blood cell 10.1 lower extremity Dopplers on 03/11 were negative. Blood gas this morning on 5 L nasal cannula was 7.35/69/93. Continue prednisone 50 PO, continue ipratropium nebulizers. Patient has had no wheezing off of the albuterol and his heart rate has improved to 95-105. DC azithromycin after tonight dose. 03/13 Patient continues to improve and is currently on 5 L nasal cannula with saturations 98%. He is currently out of the bed in a chair his white blood cell count is 9.8. Will change to anoro ellipta 62.5/today. Today is day 5 steroids and will DC. 03/14 Patient continues to slowly improve. Currently wearing 5 L nasal cannula saturations 95%. Patient had an overnight oximetry last night on 4 L nasal cannula with an saturation 91%, lowest saturation 85%, time with saturation less than or equal to 88% was 35 minutes or 9% of the monitored time. Stable for discharge. Discharge on these pulmonary medications: Anoro Ellipta 62.5/25 mcg at 1 puff Q day Rescue albuterol 2 puff Q 4 Hours PRN SOB or wheezing Levaquin 750 mg PO Q day for 5 days Oxygen 6 L when sleeps Oxygen per home O2 assessment (I ordered) Follow up in pulmonary clinic in 2-3 weeks, I gave him our business card and informed our distilling department supervisor. (2) Acute respiratory failure with hypoxia and hypercapnia: Code(s): J96.01 - Acute respiratory failure with hypoxia; J96.02 - Acute respiratory failure with hypercapnia Status: Acute Assessment and Plan: Patient has a history of chronically elevated serum bicarbonates that are greater than 32 since 10/26/20 and admitting blood gas of 7.23/78/82. Patient has chronic hypercarbic respiratory failure. he would benefit from BiPAP but he cannot tolerate this as the pressures are
[2021-03-14 09:52] LABS: Hematocrit 38.1 % (42.0-52.0); Hemoglobin 11.5 g/dL (14.0-18.0); Mean Corpuscular HGB Conc 30.2 g/dl (32-36); Mean Corpuscular Hemoglobin 26.4 pg (26-34); Mean Corpuscular Volume 87.6 fl (80-100); Mean Platelet Volume 9.2 fl (7.4-10.4); Platelet Count Result 379 k/mm3 (150-375); Red Blood Count 4.35 M/mm3 (4.6-6.20); Red Cell Distribution Width 14.6 % (11.5-14.5); White Blood Count 10.4 K/mm3 (4.5-10.0)
[2021-03-14] MEDS: LOSARTAN POTASSIUM 25 MG TABLET 75 MG PO (10:03)
[2021-03-14 10:12] LABS: Anion Gap 5 mmol/L (8-16); Blood Urea Nitrogen 36 mg/dL (9-20); Calcium 10.5 mg/dL (8.4-10.2); Carbon Dioxide 38 mmol/L (22-30); Chloride 90 mmol/L (98-107); Estimated CRCL calculation 51 ml/min; Estimated Glomerular Filt Rate 59; Glucose 170 mg/dL (75-110); Potassium 5.1 mmol/L (3.4-5.0); Sodium 133 mmol/L (137-145)
[2021-03-14 10:18] LABS: Vancomycin Trough 20.6 ug/mL (10.0-20.0)
--- NOTE | 2021-03-14 11:38 | PCRCNOTE ---
HOME O2 EVAL DONE, NO CHANGE FROM CURRENT HOME O2 SETTINGS. 5 LITERS AT REST AND WITH EXERTION. PT USES [employer] FOR O2 NEEDS. PT HAS ALL REQUIRED O2 EQUIPMENT, NO CHANGES MADE.
[2021-03-14 11:42] LABS: Glucose Point of Care 140 mg/dl (65-105)
--- NOTE | 2021-03-14 15:12 | PM.IMPN ---
Progress Note: A&P Assessment and Plan (1) Acute respiratory failure with hypoxia and hypercapnia: Code(s): J96.01 - Acute respiratory failure with hypoxia; J96.02 - Acute respiratory failure with hypercapnia Status: Acute Assessment and Plan: started on BiPAP on admission. CT of the lung significant for bilateral pleural effusion as well as lung consolidation. He was started on broad-spectrum antibiotics with vancomycin, cefepime, Zithromax. Is finished course of Zithromax remains on vancomycin and cefepime. Slowly improving currently off of BiPAP Echocardiogram from 07/05 reviewed his extraction of 50-55% His steroid has been tapered to prednisone 50 mg a day antibiotics plan to switch to Levaquin 750 mg every day Oxygen is in via nasal cannula as needed (2) Acute exacerbation of chronic obstructive pulmonary disease: Code(s): J44.1 - Chronic obstructive pulmonary disease with (acute) exacerbation Status: Acute Assessment and Plan: Nebulizer treatments Systemic steroids (3) Abnormal chest CT: Code(s): R93.89 - Abnormal findings on diagnostic imaging of other specified body structures Status: Acute Assessment and Plan: Patient with consolidation and pleural effusions (4) Type 2 diabetes mellitus: Code(s): E11.9 - Type 2 diabetes mellitus without complications Status: Acute Assessment and Plan: Holding metformin Insulin sliding scale as needed Accu-Cheks AC and HS (5) Peripheral neuropathy: Code(s): G62.9 - Polyneuropathy, unspecified Status: Chronic Assessment and Plan: On no meds (6) Osteoarthritis: Code(s): M19.90 - Unspecified osteoarthritis, unspecified site Status: Chronic Assessment and Plan: Tylenol p.r.n. (7) Hypertension: Code(s): I10 - Essential (primary) hypertension Status: Chronic Assessment and Plan: Continue home meds Continue to monitor (8) BPH (benign prostatic hyperplasia): Qualifiers: Lower urinary tract symptom presence: symptoms absent Qualified Code(s): N40.0 - Benign prostatic hyperplasia without lower urinary tract symptoms Code(s): N40.0 - Benign prostatic hyperplasia without lower urinary tract symptoms Status: Chronic Assessment and Plan: Continue Flomax (9) GERD (gastroesophageal reflux disease): Code(s): K21.9 - Gastro-esophageal reflux disease without esophagitis Status: Acute Assessment and Plan: Continue omeprazole Additional Plan working with physical therapy needs home health at time of discharge Subjective Date/time seen: 03/14/21 15:12 Interval history: patient feeling little more stronger liver or better than when he came in. He desaturates easily whenever he ambulates remains on 5 L oxygen nasal cannula which he has chronically been. She denies any chest pain or fevers chills he does have some cough. History of tobacco abuse, small cell lung cancer treated in 1996 with chemo and radiation, COPD on 5 L nasal cannula oxygen, diabetes, hypothyroidism presented on 03/08 with respiratory distress. Review of Systems Review of Systems: All systems reviewed & are unremarkable except as noted in HPI and below Exam Narrative: Exam Narrative: Patient is comfortable, Remains on nasal cannula oxygen at 5 L HEENT: eyes are clear and none icteric LUNGS: bilateral rhonchi and wheeze, not in acute respiratory distress HEART: RR S1S2 ABD: BS+, Soft and nontender Lower extremities: no edema no cyanosis or clubbing SKIN: nonjaundiced Neuro: grossly intact. alert and oriented x3 Objective Data Vital Signs Vital Signs: Vital Signs - 24 hr 03/13/21 16:00 03/13/21 20:00 03/13/21 20:03 Temperature 97.3 F L Pulse Rate 108 H 106 H 108 H Respiratory Rate 22 H Blood Pressure 139/68 Pulse Oximetry 95 03/13/21 22:40 03/14/21 00:00 03/14/21 04:00 Temperature P
[2021-03-14 17:03] LABS: Glucose Point of Care 218 mg/dl (65-105)
[2021-03-14] MEDS: INSULIN ASPART (*BKC) 100 UNITS/ML SUB-Q (18:02)
[2021-03-14 22:37] LABS: Glucose Point of Care 211 mg/dl (65-105)
[2021-03-15] VITALS: PULSE 105
[2021-03-15 04:00] VITALS: PULSE 99
[2021-03-15] MEDS: LEVOTHYROXINE SODIUM 50 MCG TABLET PO (05:41)
[2021-03-15] MEDS: HEPARIN SODIUM 5,000 UNITS/ML VIAL 5000 UNITS SUB-Q (05:41)
[2021-03-15 05:57] VITALS: BP 144/60; PULSE 111; RESP 22; TEMP 35.9; O2SAT 91
[2021-03-15 06:05] LABS: Hematocrit 38.2 % (42.0-52.0); Hemoglobin 11.4 g/dL (14.0-18.0); Mean Corpuscular HGB Conc 29.8 g/dl (32-36); Mean Corpuscular Hemoglobin 26.3 pg (26-34); Mean Platelet Volume 9.4 fl (7.4-10.4); Platelet Count Result 405 k/mm3 (150-375); Red Blood Count 4.34 M/mm3 (4.6-6.20); Red Cell Distribution Width 14.8 % (11.5-14.5); White Blood Count 10.7 K/mm3 (4.5-10.0)
[2021-03-15 06:20] LABS: Blood Urea Nitrogen 37 mg/dL (9-20); Calcium 10.3 mg/dL (8.4-10.2); Carbon Dioxide > 40 mmol/L (22-30); Chloride 91 mmol/L (98-107); Estimated CRCL calculation 60 ml/min; Estimated Glomerular Filt Rate > 60; Glucose 111 mg/dL (75-110); Potassium 5.5 mmol/L (3.4-5.0); Sodium 133 mmol/L (137-145)
[2021-03-15 08:00] VITALS: BP 132/58; PULSE 108; PULSE 109; RESP 20; TEMP 35.8; O2SAT 95
[2021-03-15 08:32] LABS: Glucose Point of Care 108 mg/dl (65-105)
--- NOTE | 2021-03-15 09:44 | PM.DS ---
DS: Admitting Diagnosis Admitting Diagnosis Admitting Diagnosis: shortness of breath DS: Discharge Diagnosis Discharge Diagnosis (1) Acute respiratory failure with hypoxia and hypercapnia: Code(s): J96.01 - Acute respiratory failure with hypoxia; J96.02 - Acute respiratory failure with hypercapnia Status: Acute (2) Acute exacerbation of chronic obstructive pulmonary disease: Code(s): J44.1 - Chronic obstructive pulmonary disease with (acute) exacerbation Status: Acute (3) Hyperkalemia: Code(s): E87.5 - Hyperkalemia Status: Acute (4) Abnormal chest CT: Code(s): R93.89 - Abnormal findings on diagnostic imaging of other specified body structures Status: Acute (5) Hypothyroidism: Code(s): E03.9 - Hypothyroidism, unspecified Status: Acute (6) Type 2 diabetes mellitus: Code(s): E11.9 - Type 2 diabetes mellitus without complications Status: Acute (7) Benign prostatic hyperplasia: Code(s): N40.0 - Benign prostatic hyperplasia without lower urinary tract symptoms Status: Acute (8) Peripheral neuropathy: Code(s): G62.9 - Polyneuropathy, unspecified Status: Chronic (9) Osteoarthritis: Code(s): M19.90 - Unspecified osteoarthritis, unspecified site Status: Chronic (10) Tachycardia: Code(s): R00.0 - Tachycardia, unspecified Status: Acute (11) GERD (gastroesophageal reflux disease): Code(s): K21.9 - Gastro-esophageal reflux disease without esophagitis Status: Acute (12) Hypothyroidism (acquired): Code(s): E03.9 - Hypothyroidism, unspecified Status: Chronic (13) HLD (hyperlipidemia): Qualifiers: Hyperlipidemia type: mixed hyperlipidemia Qualified Code(s): E78.2 - Mixed hyperlipidemia Code(s): E78.5 - Hyperlipidemia, unspecified Status: Acute (14) Small cell lung cancer: Code(s): C34.90 - Malignant neoplasm of unspecified part of unspecified bronchus or lung Status: Acute DS: Summary Hospital Course Hospital Course: (1) Acute respiratory failure with hypoxia and hypercapnia: started on BiPAP on admission. CT of the lung significant for bilateral pleural effusion as well as lung consolidation. He was started on broad-spectrum antibiotics with vancomycin, cefepime, Zithromax. Is finished course of Zithromax remains on vancomycin and cefepime. Slowly improving currently off of BiPAP Echocardiogram from 07/05 reviewed his extraction of 50-55% His steroid has been tapered to prednisone 50 mg a day antibiotics plan to switch to Levaquin 750 mg every day for 5 more days as recommended by Pulmonary Oxygen is in via nasal cannula as needed. Walk test was done prior to the discharge and he was at his baseline oxygen level 5 L at rest and exertion (2) Acute exacerbation of chronic obstructive pulmonary disease: Nebulizer treatments Systemic steroids given during the hospital stay finish 5 days course as recommended by the Pulmonary. He will follow-up with pulmonary as an outpatient basis he clinically improved with improvement in his shortness of breath with Above treatment. (3) Abnormal chest CT: Patient with consolidation and pleural effusions treated with antibiotics as denoted above (4) Type 2 diabetes mellitus: Holding metformin Insulin sliding scale as needed Accu-Cheks AC and HS resume at discharge (5) Peripheral neuropathy: On no meds (6) Osteoarthritis: Tylenol p.r.n. (7) Hypertension: Assessment and Plan: Continue home meds Continue to monitor (8) BPH (benign prostatic hyperplasia): Continue Flomax (9) GERD (gastroesophageal reflux disease): Continue omeprazole (10) disposition: Home health arranged at the time of discharge for PT OT and nursing Time Spent with Patient Time attestation: Total time spent providing and/or coordinating discharge services: 50 minutes Exam Narrative:
[2021-03-15] MEDS: NIACIN SA 500 MG TABLET PO (10:17)
[2021-03-15] MEDS: LOSARTAN POTASSIUM 25 MG TABLET 75 MG PO (10:18)
[2021-03-15] MEDS: PANTOPRAZOLE 40 MG TABLET PO (10:19)
[2021-03-15] MEDS: FERROUS SULFATE 324 MG TABLET PO (10:19)
[2021-03-15] MEDS: ATORVASTATIN 20 MG TABLET 60 MG PO (10:19)
[2021-03-15] MEDS: guaiFENesin 12 HR 600 MG TABCR PO (10:19)
[2021-03-15] MEDS: CALCIUM CARBONATE (OSCAL) 500 MG TABLET PO (10:19)
[2021-03-15] MEDS: FENOFIBRATE NANOCRYSTALLIZED 145 MG TABLET PO (10:19)
[2021-03-15] MEDS: UMECLIDINIUM/VILANTEROL 62.5-25 MCG ELLIPTA 1 PUFF INHALATION (10:19)
[2021-03-15] MEDS: TAMSULOSIN HCL 0.4 MG CAPSULE PO (10:19)
[2021-03-15 11:03] VITALS: O2SAT 90
== END 2021-03-15 13:30 | disposition home health service (06) | DRG 193 ==
LOC: ANHED 03-09 01:32 → ANH3MED 03-13 00:21 → ANHICU 03-16 17:47
PROVIDERS: Family Medicine; Internal Medicine; Internal Medicine Pulmonary Disease; Admitting Provider Internal Medicine; Emergency Provider Emergency Medicine; PCP Emergency Medicine; Visit Provider Internal Medicine
DX: J18.9 Pneumonia, unspecified organism (principal); J96.21 Acute and chronic respiratory failure with hypoxia; J96.22 Acute and chronic respiratory failure with hypercapnia; J44.1 Chronic obstructive pulmonary disease with (acute) exacerbation; J44.0 Chronic obstructive pulmonary disease with (acute) lower respiratory infection; E11.42 Type 2 diabetes mellitus with diabetic polyneuropathy; M19.90 Unspecified osteoarthritis, unspecified site; E03.9 Hypothyroidism, unspecified; E87.5 Hyperkalemia; N40.0 Benign prostatic hyperplasia without lower urinary tract symptoms; K21.9 Gastro-esophageal reflux disease without esophagitis; E78.2 Mixed hyperlipidemia; E78.5 Hyperlipidemia, unspecified; Z96.641 Presence of right artificial hip joint; Z85.118 Personal history of other malignant neoplasm of bronchus and lung; Z99.81 Dependence on supplemental oxygen; Z85.46 Personal history of malignant neoplasm of prostate; Z87.891 Personal history of nicotine dependence
CPT/HCPCS: 36415; 36600; 71045; 71275; 80048; 80053; 80069; 80202; 82375; 82565; 82805; 82948; 83036; 83050; 83605; 83735; 83880; 84100; 84484; 85025; 85027; 85380; 85610; 85730; 87040; 87070; 87077; 87086; 87186; 87205; 93005; 93970; 94002; 94003; 94640; 94762; 96365; 96368; 97110; 97162; 97166; 97530; 97535; 99285; A9270; J0456; J0610; J0692; J0696; J1644; J1815; J1940; J2920; J2930; J3370; J7512; Q9967

== ENCOUNTER 2021-05-29 13:13 | Inpatient (IN) | payer MEDICARE, SELFPAY ==
[2021-05-29] VITALS (26 sets, daily range): BP systolic 126–161; BP diastolic 50–81; PULSE 98–130; RESP 17–32; TEMP 36.1–36.6; O2SAT 78–100; BMI 24.3
--- NOTE | ~2021-05-29 | XR_ITS ---
EXAMINATION: XR chest 1V portable DATE: 05/31/2021 06:09 INDICATION: Pneumonia TECHNIQUE: frontal view of the chest was obtained. COMPARISON: Chest radiograph dated 05/29/[address] dated 05/30/2021 FINDINGS: Minimal change in diffuse bilateral lung disease with more dense consolidation in the bilateral lower lobes consistent with multiple focal pneumonia. Small bilateral pleural effusions. No pneumothorax. Pleural-parenchymal scarring at the right apex consistent with likely prior radiation fibrosis for tr eatment of a reported prior lung cancer. Degenerative mild associated volume loss the right hemithora x with mild rightward deviation of the trachea. Heart size is normal. IMPRESSION: 1. No significant change in diffuse bilateral lung disease with more dense consolidation in the bilat eral lower lobes consistent with pneumonia possibly with mild superimposed pulmonary edema. 2. Small bilateral pleural effusions. Reviewed, dictated and finalized at location A. IMPRESSION: 1. No significant change in diffuse bilateral lung disease with more dense cons olidation in the bilateral lower lobes consistent with pneumonia possibly with mild superimposed pulmonary edema. 2. Small bilateral pleural effusions.
--- NOTE | ~2021-05-29 | XR_ITS ---
EXAMINATION: XR chest 1V portable DATE: 06/02/2021 06:50 INDICATION: Intubated patient TECHNIQUE: frontal view of the chest was obtained. COMPARISON: Chest radiograph dated 06/01/2021 FINDINGS: Endotracheal tube tip 3.4 cm above the milton. Nasogastric tube extends below the left hemidiaphragm with distal tip collimated off the study. Right internal jugular central venous catheter with distal tip near the superior cavoatrial junction. No significant interval change in small bilateral pleural effusions and airspace opacities throughout both lungs relatively sparing the left upper lung zone. Chronic radiation fibrosis at the lateral ri ght apex. No pneumothorax. Heart size is normal. IMPRESSION: 1. Unchanged diffuse bilateral lung disease sparing the left upper lung which could represent pneumon ia and/or pulmonary edema. 2. Small bilateral pleural effusions. Reviewed, dictated and finalized at location A. IMPRESSION: 1. Unchanged diffuse bilateral lung disease sparing the left upper lung which c ould represent pneumonia and/or pulmonary edema. 2. Small bilateral pleural effusions.
--- NOTE | ~2021-05-29 | XR_ITS ---
EXAMINATION: XR chest 1V portable EXAM DATE: 05/29/2021 14:10 INDICATION: COPD, shortness of breath. History of pneumonia. TECHNIQUE: Portable AP frontal chest x-ray was obtained. Comparison is made to prior examination from 03/12/2021. FINDINGS: There is diffuse abnormal and lower lung zone reticulation with some larger region of confl uence in the right lower lobe. Pneumonia or edema. Chronic hyperinflation. Pleural blunting which cou ld be chronic or small pleural effusions. Cardiomediastinal silhouette is normal. There is no pneumot horax suspected. Thoracic spondylosis. IMPRESSION: 1. Moderate amount of right basilar, smaller left basilar pneumonia or edema. 2. Possible small pleural effusions. 3. Hyperinflation. Reviewed, dictated and finalized at location B.
--- NOTE | ~2021-05-29 | XR_ITS ---
EXAMINATION: XR abdomen NG/feed tube insert INDICATION: OG tube placement TECHNIQUE: Portable AP KUB-NG at 0822 hours COMPARISON: 06/17/2020 FINDINGS: An OG tube ends in the stomach which is mildly distended. There are small pleural effusions . Diffuse opacities are present in the visualized lung bases. IMPRESSION: 1. OG tube in the stomach. Reviewed, dictated and finalized at location A. IMPRESSION: 1. OG tube in the stomach.
--- NOTE | ~2021-05-29 | XR_ITS ---
EXAMINATION: XR chest 1V portable INDICATION: Respiratory failure TECHNIQUE: Portable AP chest at 0508 hours COMPARISON: 06/02/2018 FINDINGS: The endotracheal and nasogastric tubes have been removed. A right internal jugular central venous catheter ends with its tip at the superior cavoatrial junction. There are small pleural effusi ons. The cardiomediastinal silhouette is stable. Diffuse opacities persist throughout all lung zones with slight interval improvement. IMPRESSION: 1. Diffuse lung disease with interval improvement, consistent with pneumonia and/or pulmonary edema a nd/or acute respiratory distress syndrome (ARDS). 2. Endotracheal and nasogastric tube removal. Reviewed, dictated and finalized at location A. IMPRESSION: 1. Diffuse lung disease with interval improvement, consistent with pneumonia an d/or pulmonary edema and/or acute respiratory distress syndrome (ARDS). 2. Endotracheal and nasogastric tube removal.
--- NOTE | ~2021-05-29 | CT_ITS ---
EXAMINATION: CTA chest PE protocol DATE: 05/30/2021 12:46 INDICATION: Soreness of breath. Elevated d-dimer. TECHNIQUE: Computed tomography (CT) pulmonary angiogram of the chest was performed with 100 mL Omnipa que-350 intravenous contrast. Additional 3D reconstructions utilizing coronal maximum intensity proje ction (MIP) were performed. Automated exposure control and iterative reconstruction technique were em ployed. The dose-length product was 508.29 mGy-cm. COMPARISON: CT dated 03/09/2021 FINDINGS: . contrast opacification of the pulmonary arteries. There is prominent streak artifact from dense con trast in the left subclavian and brachiocephalic veins, superior vena cava and right atrium. Mild to moderate scattered respiratory motion artifact. Overall this decreases sensitivity in the segmental a nd many of the smaller subsegmental pulmonary arteries. No definitive pulmonary embolism. Right upper lobe paramediastinal likely radiation fibrosis for reported prior right lung small cell carcinoma. C onsolidation involving the majority of the right lower lobe and in the basilar segments of the left l ower lobe with less than expected degree of associated volume loss to suggest collapse and with relat ively low density of the consolidated lung consistent with likely confluent pneumonia. Also consisten t with pneumonia with endobronchial spread of disease are numerous small centrilobular nodules throug hout the remainder of the right lung and to a lesser degree in portions of the dependent left lung. M ultiple scattered small calcified pulmonary nodules along with calcified right hilar lymph nodes and several splenic calcifications, all consistent with old granulomatous disease. There is mild smooth s eptal line thickening and surrounding groundglass opacity scattered throughout both lungs consistent with mild pulmonary edema. Mild emphysema. Small left and tiny right pleural effusions. Heart size is normal. No pericardial effusion. Small amount of scattered atherosclerotic coronary artery calcific location. Thoracic aorta is normal in caliber with no dissection. Dependently layering bubbly mucus a long the thoracic trachea and bilateral mainstem bronchi. Again seen are several prominent lower thor acic paraesophageal lymph nodes, the largest measuring 2.7 x 1.9 cm, previously 2.6 x 1.8 cm. Mild to moderate thoracic spondylosis with chronic mild anterior wedging of a few lower thoracic vertebral b odies. IMPRESSION: 1. No pulmonary embolism. Sensitivity mildly decreased by streak and motion artifact. 2. Recurrent versus chronic pneumonia with dense consolidation involving the bilateral lower lobes, r ight greater than left and numerous more diffuse centrilobular nodules throughout the remainder of th e lungs. 3. Mild pulmonary edema and small bilateral pleural effusions, left greater than right. 4. Emphysema. 5. Chronic radiation fibrosis in the paramediastinal right upper lobe for reported prior right lung s mall cell carcinoma. 6. Slight increase in size of several enlarged lower thoracic paraesophageal lymph nodes which could be reactive or metastatic. Reviewed, dictated and finalized at location A. IMPRESSION: 1. No pulmonary embolism. Sensitivity mildly decreased by streak and motion art ifact. 2. Recurrent versus chronic pneumonia with dense consolidation involving the bi lateral lower lobes, right greater than left and numerous more diffuse centrilo bular nodules throughout the remainder of the lungs. 3. Mild pulmonary edema and small bilateral pleural effusions, left greater usman n right. 4. Emphysema. 5. Chronic radiation fibrosis in the paramediastinal right upper lobe for repor myron prior right lung small cell carcinoma. 6. Slight increase in size of several enlarged
--- NOTE | ~2021-05-29 | XR_ITS ---
EXAMINATION: XR chest port-a-cath/central DATE: 05/31/2021 11:28 INDICATION: Central line placement TECHNIQUE: frontal view of the chest was obtained. COMPARISON: Chest radiograph dated 05/31/2021 at 10:26 AM FINDINGS: Interval placement of a right internal jugular central venous catheter with distal tip at the caudal superior vena cava. A left upper extremity peripherally inserted central venous catheter (PICC) is un changed with distal tip coiled back upon itself in the left brachiocephalic vein. Endotracheal tube t ip 3.4 cm above the milton. Nasogastric tube extends to at least the distal esophagus distal tip col limated off the study. Unchanged patchy bilateral airspace opacities relatively sparing the left upper lung zone. No pneumot horax. Visualized portion of the cardiomediastinal silhouette is normal. IMPRESSION: 1. Lines and tubes as detailed above. 2. Unchanged diffuse bilateral lung disease sparing the left upper lung zone which could represent pn eumonia and/or pulmonary edema. Reviewed, dictated and finalized at location A. IMPRESSION: 1. Lines and tubes as detailed above. 2. Unchanged diffuse bilateral lung disease sparing the left upper lung zone wh ich could represent pneumonia and/or pulmonary edema.
--- NOTE | ~2021-05-29 | XR_ITS ---
EXAMINATION: XR chest 1V portable DATE: 06/01/2021 05:43 INDICATION: Intubation postcardiac arrest TECHNIQUE: frontal view of the chest was obtained. COMPARISON: Chest radiograph dated 05/31/2021 FINDINGS: Endotracheal tube tip 4.4 cm above the milton. Nasogastric tube with proximal side-port just below th e level of the gastroesophageal junction with distal tip collimated off the study. Right internal jug ular central venous catheter with distal tip near the superior cavoatrial junction. No significant interval change in bilateral patchy airspace opacities throughout both lungs relativel y sparing the left upper lung zone. Small bilateral pleural effusions. No pneumothorax. Chronic pleur al parenchymal scarring at the lateral right apex likely radiation fibrosis for reported prior lung c ancer. Heart size is normal. IMPRESSION: 1. No significant interval change in diffuse bilateral lung disease sparing the left upper lung zone which could represent pneumonia and/or pulmonary edema. Reviewed, dictated and finalized at location A.
--- NOTE | ~2021-05-29 | US_ITS ---
EXAMINATION: US renal BI DATE: 06/01/2021 11:01 INDICATION: Acute kidney injury TECHNIQUE: Multiple grayscale and Doppler ultrasound images of the kidneys were obtained. COMPARISON: None. FINDINGS: The right kidney measures 11.5 x 5.5 x 5.4 cm. The left kidney measures 11.6 x 5.9 x 5.2 cm . The kidneys demonstrate normal parenchymal echogenicity. There is no hydronephrosis. The bladder is normal. IMPRESSION: 1. Normal kidneys without hydronephrosis. Reviewed, dictated and finalized at location A.
--- NOTE | ~2021-05-29 | XR_ITS ---
EXAMINATION: XR chest PICC line INDICATION: Repositioned PICC TECHNIQUE: Portable AP chest at 1026 hours COMPARISON: 0955 hours FINDINGS: The left upper extremity PICC is unchanged in position, looping in the brachiocephalic vein and ending with its tip in the subclavian vein. Diffuse opacities persist throughout all lung zones without significant change. There are small pleural effusions. No pneumothorax is identified. Endotra cheal and nasogastric tubes are unchanged in position. IMPRESSION: 1. Unchanged in position of the left upper extremity PICC which loops in the brachiocephalic vein and ends with its tip in the subclavian vein. Reviewed, dictated and finalized at location A. IMPRESSION: 1. Unchanged in position of the left upper extremity PICC which loops in the br achiocephalic vein and ends with its tip in the subclavian vein.
--- NOTE | ~2021-05-29 | XR_ITS ---
EXAMINATION: XR chest ET placement INDICATION: Respiratory failure TECHNIQUE: Portable AP chest at 0822 hours COMPARISON: 0537 hours FINDINGS: The endotracheal tube has been inserted which ends 4.9 cm above the milton. A nasogastric t ube has been inserted which is followed as far as the stomach. Its tip is beyond the inferior margin of the radiograph. Diffuse opacities persist throughout all lung zones with slight worsening in the u pper lung zones. There is a small left pleural effusion. No pneumothorax is identified. The cardiomed iastinal silhouette is stable. IMPRESSION: 1. Endotracheal and nasogastric tube insertion. 2. Diffuse lung disease with interval worsening, consistent with pneumonia and/or pulmonary edema and /or acute respiratory distress syndrome (ARDS). Reviewed, dictated and finalized at location A. IMPRESSION: 1. Endotracheal and nasogastric tube insertion. 2. Diffuse lung disease with interval worsening, consistent with pneumonia and/ or pulmonary edema and/or acute respiratory distress syndrome (ARDS).
--- NOTE | ~2021-05-29 | CT_ITS ---
EXAMINATION: CT brain wo con INDICATION: Cardiac arrest COMPARISON: None TECHNIQUE: Standard unenhanced head CT. The dose-length product (DLP) was 605.33 mGy-cm. The mA was a djusted according to patient size. Iterative reconstruction technique was employed. FINDINGS: There is no acute intraparenchymal hemorrhage. No evidence of mass lesion. No evidence of a cute infarction. There is mild periventricular and subcortical hypodensity probably related to small vessel ischemic disease. There is mild prominence of the sulci and ventricles related to cerebral atr ophy. Intracranial calcified cerebral atherosclerosis is noted. There are no extra-axial collections. There is no mass effect or midline shift. The orbits and soft tissues are unremarkable. The visualiz ed sinuses and mastoid air cells are well aerated. IMPRESSION: 1. No acute intracranial abnormality. 2. Age related findings. Reviewed, dictated and finalized at location A.
--- NOTE | ~2021-05-29 | XR_ITS ---
EXAMINATION: XR chest 1V portable DATE: 05/31/2021 10:00 INDICATION: PICC line placement TECHNIQUE: frontal view of the chest was obtained. COMPARISON: Chest radiograph dated 05/31/2021 at 9:39 AM FINDINGS: No interval change in position of a left upper extremity peripherally inserted central venous cathete r (PICC) which loops back upon itself in the left brachiocephalic vein. Endotracheal tube tip 3.7 cm above the milton. Nasogastric tube extends below the left hemidiaphragm with distal tip collimated o ff the study. A significant interval change in airspace opacities scattered throughout both lungs with most dense c onsolidation in the bilateral lower lobes. Small bilateral pleural effusions. No pneumothorax. The ca rdiomediastinal silhouette is normal. IMPRESSION: 1. Unchanged position of a left upper extremity peripherally inserted central venous catheter which l oops back upon itself the left brachiocephalic vein. 2. Unchanged diffuse bilateral lung disease consistent with multifocal pneumonia. 2. Small bilateral pleural effusions. Reviewed, dictated and finalized at location A. IMPRESSION: 1. Unchanged position of a left upper extremity peripherally inserted central v enous catheter which loops back upon itself the left brachiocephalic vein. 2. Unchanged diffuse bilateral lung disease consistent with multifocal pneumoni a. 2. Small bilateral pleural effusions.
--- NOTE | ~2021-05-29 | XR_ITS ---
EXAMINATION: XR chest PICC line INDICATION: PICC insertion TECHNIQUE: Portable AP chest at 0939 hours COMPARISON: 0822 hours FINDINGS: A left upper extremity PICC has been inserted which coils in the brachiocephalic vein and e nds with its tip in the left subclavian vein. The endotracheal tube ends approximately 3.6 cm above t he milton. The nasogastric tube is followed as far as the stomach. Its tip is beyond the inferior mar gin of the radiograph. Diffuse opacities persist throughout all lung zones without significant change . There are small pleural effusions. No pneumothorax is identified. IMPRESSION: 1. Left upper showed a PICC coiling in the brachiocephalic vein and ending with its tip in the left s ubclavian vein. Repeat radiograph after repositioning pending. Otherwise, no significant change. Reviewed, dictated and finalized at location A. IMPRESSION: 1. Left upper showed a PICC coiling in the brachiocephalic vein and ending with its tip in the left subclavian vein. Repeat radiograph after repositioning pen ding. Otherwise, no significant change.
--- NOTE | 2021-05-29 13:13 | ECG_ITS ---
Measurements Intervals [place] Rate: 127 P: 59 TX: 124 QRS: -1 QRSD: 88 T: 45 QT: 285 QTc: 415 Interpretive Statements SINUS TACHYCARDIA CONSIDER INFERIOR INFARCT, AGE INDETERMINATE BASELINE ARTIFACT- I, II, III, AVR, AVL, AVF ABNORMAL ECG Electronically Signed On 05-29-2021 13:32:25 CDT by Jn Malave D.O.
[2021-05-29] MEDS: methylPREDNISolone SOD SUCC 125 MG VIAL (13:24)
[2021-05-29 13:27] LABS: Alveolar/Arterial O2 Gradient 609.9 mmHg; Base Excess ABG 7.4 mEq/l (+/-2.0); Fractional Inspired Oxygen 100 %; HCO3 ABG 34.5 mEq/l (22.0-26.0); Methemoglobin ABG 0.2 %THb (0-1.5); Oxygen Content ABG 11.7 %vol (16.0-22.0); Oxyhemoglobin 76.8 % THb (90.0-100.0); Total Hemoglobin 10.8 g/dL (12.0-18.0); pH ABG 7.355 (7.350-7.450)
[2021-05-29 13:28] LABS: Oxygen Saturation ABG 70.8 % (95.0-100.0); PCO2 ABG 63.2 mmHg (35.0-45.0); PO2 ABG 39.9 mmHg (80.0-100.0)
[2021-05-29 13:29] LABS: Device OTHER DEVICE; Modified Allen's Test Pass; Site Drawn LEFT RADIAL
[2021-05-29 13:41] LABS: Basophils Percent Auto 0.6 % (0.2-1.2); Eosinophils Absolute Auto 0.1 K/mm3 (0-0.3); Eosinophils Percent Auto 1.2 % (0-4.4); Hematocrit 34.9 % (42.0-52.0); Hemoglobin 10.4 g/dL (14.0-18.0); Immature Granulocyte Absolute 0.01 K/mm3 (0.00-0.031); Immature Granulocyte Percent A 0.1 % (0-0.5); Lymphocytes Absolute Auto 0.49 K/mm3 (0.9-3.2); Lymphocytes Percent Auto 7.1 % (18.3-44.2); Mean Corpuscular HGB Conc 29.8 g/dl (32-36); Mean Corpuscular Hemoglobin 27.7 pg (26-34); Mean Corpuscular Volume 92.8 fl (80-100); Mean Platelet Volume 9.3 fl (7.4-10.4); Monocytes Absolute Auto 0.7 K/mm3 (0.1-0.6); Monocytes Percent Auto 9.5 % (2.6-8.5); Neutrophils Absolute Auto 5.6 K/mm3 (1.3-6.7); Neutrophils Percent Auto 81.5 % (45.5-73.1); Platelet Count Result 498 k/mm3 (150-375); Red Blood Count 3.76 M/mm3 (4.6-6.20); Red Cell Distribution Width 15.1 % (11.5-14.5); White Blood Count 6.9 K/mm3 (4.5-10.0)
[2021-05-29 14:00] LABS: Anion Gap 8 mmol/L (8-16); Blood Urea Nitrogen 20 mg/dL (9-20); Calcium 10.2 mg/dL (8.4-10.2); Carbon Dioxide 38 mmol/L (22-30); Chloride 84 mmol/L (98-107); EDCOVIDSCREEN Negative (Negative); Estimated Glomerular Filt Rate > 60; Glucose 104 mg/dL (65-110); Potassium 4.9 mmol/L (3.4-5.0); Sodium 130 mmol/L (137-145)
[2021-05-29 15:22] LABS: Eosinophils Absolute Manual 0.27 K/mm3 (0.02-0.5); Eosinophils Percent Manual 4 % (0-4); Lymphocytes Absolute Manual 1.03 K/mm3 (1.1-4.5); Monocytes Absolute Manual 0.62 K/mm3 (0.1-0.90); Monocytes Percent Manual 9 % (3-9); Neutrophils Percent Manual 72 % (46-73); Platelet Estimate Increased (Adequate); Total Cells Counted 100
[2021-05-29 15:23] LABS: Anisocytosis 1+ (NORMAL); Hypochromasia 1+ (NORMAL)
--- NOTE | 2021-05-29 15:43 | ED.GENADULT ---
HPI - General Adult General Chief complaint: Shortness of Breath/Dyspnea Stated complaint: Diff breathing Time Seen by Provider: 05/29/21 13:17 Source: patient Mode of arrival: EMS Limitations: clinical condition History of Present Illness HPI narrative: 76-year-old with a history of COPD, hypertension, hyperlipidemia was brought in from home with severe respiratory distress. Patient and as per the EMS here patient been having difficulty breathing since this afternoon.. Most of the history was obtained from EMS as patient is in moderate respiratory distress and is on CPAP. EMS reports that he was diagnosed with pneumonia in the recent past. Patient denied any chest pain, nausea or vomiting. Onset (ago): hour(s) (4) Associated symptoms: denies other symptoms Related Data Home Medications Medication Instructions Recorded Confirmed calcium carbonate 600 mg calcium 600 mg PO DAILY 10/08/19 03/09/21 (1,500 mg) tablet fish oil-dha-epa 1,200 mg-144 1 cap PO BID cap 10/08/19 03/09/21 mg-216 mg capsule niacin 500 mg tablet 500 mg PO DAILY 10/08/19 03/09/21 ferrous sulfate [Iron (ferrous 325 mg PO DAILY 06/17/20 03/09/21 sulfate)] albuterol sulfate 2.5 mg CONTINUOUS NEBULIZATION Q6H 03/09/21 03/09/21 PRN furosemide 20 mg PO BID 03/09/21 03/09/21 atorvastatin 05/29/21 budesonide-formoterol [Symbicort] INHALATION 05/29/21 fenofibrate micronized mg 05/29/21 furosemide 05/29/21 levothyroxine 05/29/21 losartan 05/29/21 metformin mg 05/29/21 omeprazole 05/29/21 tamsulosin mg PO 05/29/21 tiotropium bromide [Spiriva with INHALATION 05/29/21 HandiHaler] umeclidinium-vilanterol [Anoro INHALATION 05/29/21 Ellipta] Allergies Allergy/AdvReac Type Severity Reaction Status Date / Time No Known Allergies Allergy Verified 05/29/21 15:25 Review of Systems Review of Systems: ROS unobtainable: Yes unobtainable due to medical condition (Moderate respiratory distress) PMFSH Past Medical History Medical History Asthma Benign prostatic hyperplasia Cancer of right lung (~1996) 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 Chronic obstructive pulmonary disease Chronic respiratory failure with hypoxia, on home oxygen therapy On 2 L nasal cannula. Gastroesophageal reflux disease Hyperlipidemia Hypertension Hypothyroidism Osteoarthritis Osteoarthritis Peripheral neuropathy Type 2 diabetes mellitus Hemoglobin A1c was 5.7% on 03/11/2020. Surgical History Surgical History History of right hip replacement Status post surgical removal of malignant neoplasm of skin Excision skin cancer from the face. Family History Family History Mother Patient's mother is , Onset Age: 71 Heart disease Sibling Family history of cardiovascular disease brother Family history of chronic obstructive pulmonary disease sister Heart disease brother Father Family history of chronic obstructive pulmonary disease, Onset Age: 69 Acute myocardial infarction Social History Social History Social History: Surrogate decision maker: Nikki Caden, spouse. Code status: Full code. Smoking packs per day: 1 Smoking cigarettes per day: 20.0 Years smoked: 40 Smoking pack-years: 40.00 Smoking status: Former smoker Tobacco type: cigarettes Smoking end date: 09/16/96 Alcohol intake: never Substance use: never Substance use type: does not use Additional living arrangements comments: Resides in [place] with his . Additional occupation/education comments: Retired from [employer]. He worked at a local [employer] thereafter. Gender identity (if verbalized by the patient): Male Sex
[2021-05-29] MEDS: SODIUM CHLORIDE 0.9% IV 1,000 ML 999 ML IV CONT (16:12)
[2021-05-29] MEDS: SODIUM CHLORIDE 0.9% IV 1,000 ML 100 ML IV CONT (18:54)
[2021-05-29 18:58] LABS: Troponin I < 0.012 ng/mL (0.000-0.034)
--- NOTE | 2021-05-29 19:41 | PM.IMHP ---
H&P: HPI History of Present Illness Date/Time: 05/29/21 19:41 this is a 76-year-old male patient that has a history of COPD with chronic hypoxia on oxygen at 2 L per nasal cannula. The patient was brought into the emergency room from home with severe respiratory distress. The patient started having difficulty breathing since this afternoon. The patient was immediately placed on a CPAP machine. The patient stated that he does not use a CPAP home. The patient is currently on a BiPAP 12/7 rate of 14 with the bleed in of 80%. The patient sees the cfo here at [facility]. H&H is 10.4 and 34.9 to close to his baseline. Patient's pH is 7.355 CO2 63.7. PO2 39.9. Sodium 130 which is also his baseline. Chest x-ray was read as moderate amount of right basilar, smile are left basilar pneumonia or edema. Possible small pleural effusions. Hyperinflation. COVID test was negative. The patient was started on Solu-Medrol, Rocephin and IV fluids. The patient is being admitted to inpatient status on the date of service of 05/29/2021. Chief Complaint: Respiratory distress Review of Systems Review of Systems: All systems reviewed & are unremarkable except as noted in HPI and below Constitutional: Constitutional: Reports as per HPI and Reports no additional constitutional complaints Eyes: Eyes: Reports as per HPI and Reports no additional eye complaints ENT: Reports system reviewed and no additional complaints, except as documented and Reports Normal hearing present Cardiovascular: Cardiovascular: Reports no additional cardiovascular complaints Respiratory: Respiratory: Reports no additional respiratory complaints and Reports no additional respiratory complaints Gastrointestinal: Gastrointestinal: Reports as per HPI and Reports no additional gastrointestinal complaints Musculoskeletal: Musculoskeletal: Reports no additional musculoskeletal complaints Integumentary/Breasts: Skin/Breast: Reports system reviewed and no additional complaints, except as docu and Reports as per HPI Neurologic: Reports system reviewed and no additional complaints, except as documented, Reports as per HPI and Reports Normal hearing present Psychiatric: Psychiatric: Reports no additional psychiatric complaints and Reports as per HPI Endocrine: Endocrine: Reports no additional endocrine complaints Hematologic/Lymphatic: Hematologic/Lymphatic: Reports no additional hematologic/lymphatic complaints Allergic/Immunologic: Allergic/Immunologic: Reports no additional allergic/immunologic complaints [facility] Past Medical History Medical History Asthma Benign prostatic hyperplasia Cancer of right lung (~1996) 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 Chronic obstructive pulmonary disease Chronic respiratory failure with hypoxia, on home oxygen therapy On 2 L nasal cannula. Gastroesophageal reflux disease Hyperlipidemia Hypertension Hypothyroidism Osteoarthritis Osteoarthritis Peripheral neuropathy Type 2 diabetes mellitus Hemoglobin A1c was 5.7% on 03/11/2020. Surgical History Surgical History History of right hip replacement Status post surgical removal of malignant neoplasm of skin Excision skin cancer from the face. Family History Family History Mother Patient's mother is , Onset Age: 71 Heart disease Sibling Family history of cardiovascular disease brother Family history of chronic obstructive pulmonary disease sister Heart disease brother Father Family history of chronic obstructive pulmonary disease, Onset Age: 69 Acute myocardial infarction Social History Social History Social History: Surrogate decision make
[2021-05-29] MEDS: METOPROLOL TARTRATE INJ 5 MG/5 ML VIAL IV PUSH ×2 (20:18→23:43)
[2021-05-29 20:48] LABS: Glucose Point of Care 140 mg/dl (65-105)
[2021-05-29] MEDS: IPRATROPIUM BR 0.02% INH SOLN 0.5 MG/2.5 ML VIAL INHALATION (21:50)
[2021-05-29] MEDS: ALBUTEROL SULFATE NEB 2.5 MG/0.5 ML INH 5 MG INHALATION (21:50)
[2021-05-29 22:21] LABS: Troponin I < 0.012 ng/mL (0.000-0.034)
[2021-05-29] MEDS: methylPREDNISolone SOD SUCC 125 MG VIAL 60 MG IV PUSH (23:43)
[2021-05-30] VITALS (28 sets, daily range): BP systolic 119–141; BP diastolic 51–61; PULSE 102–124; RESP 18–26; TEMP 35.7–36.7; O2SAT 84–100
[2021-05-30] MEDS: ALBUTEROL SULFATE NEB 2.5 MG/0.5 ML INH 5 MG INHALATION ×2 (03:33→09:14)
[2021-05-30] MEDS: IPRATROPIUM BR 0.02% INH SOLN 0.5 MG/2.5 ML VIAL INHALATION ×3 (03:34→14:29)
[2021-05-30] MEDS: methylPREDNISolone SOD SUCC 125 MG VIAL 60 MG IV PUSH (05:01)
[2021-05-30] MEDS: LEVOTHYROXINE SODIUM 50 MCG TABLET PO (05:01)
[2021-05-30] MEDS: SODIUM CHLORIDE 0.9% IV 1,000 ML 100 ML IV CONT (05:03)
[2021-05-30 05:07] LABS: Basophils Percent Auto 0.1 % (0.2-1.2); Hematocrit 33.7 % (42.0-52.0); Hemoglobin 9.8 g/dL (14.0-18.0); Immature Granulocyte Absolute 0.03 K/mm3 (0.00-0.031); Immature Granulocyte Percent A 0.4 % (0-0.5); Lymphocytes Absolute Auto 0.14 K/mm3 (0.9-3.2); Lymphocytes Percent Auto 1.7 % (18.3-44.2); Mean Corpuscular HGB Conc 29.1 g/dl (32-36); Mean Corpuscular Hemoglobin 27.5 pg (26-34); Mean Corpuscular Volume 94.4 fl (80-100); Mean Platelet Volume 9.3 fl (7.4-10.4); Monocytes Percent Auto 0.5 % (2.6-8.5); Neutrophils Absolute Auto 7.9 K/mm3 (1.3-6.7); Neutrophils Percent Auto 97.3 % (45.5-73.1); Platelet Count Result 554 k/mm3 (150-375); Red Blood Count 3.57 M/mm3 (4.6-6.20); Red Cell Distribution Width 14.9 % (11.5-14.5); White Blood Count 8.1 K/mm3 (4.5-10.0)
[2021-05-30 05:21] LABS: Anion Gap 9 mmol/L (8-16); Blood Urea Nitrogen 24 mg/dL (9-20); Calcium 9.3 mg/dL (8.4-10.2); Carbon Dioxide 34 mmol/L (22-30); Chloride 90 mmol/L (98-107); Estimated CRCL calculation 65 ml/min; Estimated Glomerular Filt Rate > 60; Glucose 175 mg/dL (65-110); Lactate Dehydrogenase 247 U/L (313-618); Magnesium 1.6 mg/dL (1.6-2.3); Phosphorus 4.7 mg/dL (2.5-4.5); Potassium 5.5 mmol/L (3.4-5.0); Sodium 133 mmol/L (137-145)
--- NOTE | 2021-05-30 06:00 | ECG_ITS ---
Measurements Intervals [place] Rate: 119 P: 49 [place]: 138 QRS: -5 QRSD: 92 T: 55 QT: 322 QTc: 454 Interpretive Statements SINUS TACHYCARDIA POSSIBLE LEFT ATRIAL ENLARGEMENT BASELINE ARTIFACT- I, II, III, AVR, AVL, AVF, V1, V4-V6 ABNORMAL ECG Electronically Signed On 05-30-2021 10:10:00 CDT by Jn Malave D.O.
[2021-05-30 06:47] LABS: Lactic Acid Reflex < 0.5 mmol/L (0.7-2.1)
[2021-05-30 08:07] LABS: Glucose Point of Care 161 mg/dl (65-105)
[2021-05-30 08:13] LABS: Thyroid Stimulating Hormone Reflex 0.552 uIU/mL (0.465-4.68)
[2021-05-30] MEDS: FERROUS SULFATE 324 MG TABLET PO (09:20)
[2021-05-30] MEDS: FUROSEMIDE 20 MG TABLET PO (09:20)
[2021-05-30] MEDS: ATORVASTATIN 40 MG TABLET PO (09:20)
[2021-05-30] MEDS: OMEGA 3 POLYUNSAT FATTY ACIDS 1 GM CAP PO (09:20)
[2021-05-30] MEDS: ENOXAPARIN 40 MG/0.4 ML SYRINGE SUB-Q (09:20)
[2021-05-30] MEDS: TAMSULOSIN HCL 0.4 MG CAPSULE PO (09:20)
[2021-05-30] MEDS: PANTOPRAZOLE 40 MG TABLET PO (09:21)
[2021-05-30] MEDS: UMECLIDINIUM/VILANTEROL 62.5-25 MCG ELLIPTA 1 PUFF INHALATION (09:21)
[2021-05-30] MEDS: LOSARTAN POTASSIUM 50 MG TABLET PO (09:21)
[2021-05-30] MEDS: SODIUM POLYSTYRENE SULFONONATE 15 GM/60 ML BTL PO (10:35)
[2021-05-30] MEDS: MAGNESIUM SULFATE 3GM/D5W100ML 3 GM/100 ML BAG IVPB (10:35)
--- NOTE | 2021-05-30 10:46 | PM.CNPUL ---
Assessment and Plan Assessment and plan (1) Acute exacerbation of chronic obstructive pulmonary disease: Code(s): J44.1 - Chronic obstructive pulmonary disease with (acute) exacerbation Status: Acute Assessment and Plan: Patient with a history of centrilobular emphysema on his CT scan of the chest on 03/09/21 and history of tobacco exposure in the past. He is on 5 L NC oxygen 08/04 and has ECHEVARRIA at 5 yards on a good day. I have no PFTs. Currently patient presents with acute worsening shortness of breath, worsening cough , worsening phlegm procution and yellow phlegm. Evidence of bibasilar infiltrates on CXR. Will treat him for a COPD exacerbation and will change his Solu-Medrol to 40 mg IV q.6 today, continue his ipratropium 0.5 mg nebs q.6 hours and given his sinus tachycardia will discontinue all beta agonists at this time. (2) Acute respiratory failure with hypoxia and hypercapnia: Code(s): J96.01 - Acute respiratory failure with hypoxia; J96.02 - Acute respiratory failure with hypercapnia Status: Acute Assessment and Plan: COPD with chronic hypoxemic respiratory failure on 5 L nasal cannula oxygen at rest and with ambulation and 6 L at night, chronic hypercarbic respiratory failure who was admitted to the hospital from 03/08/21 to 03/13/21 For COPD exacerbation and healthcare associated pneumonia with sputum growing stenotrophomonas maltophilia and achromobacter both sensitive to Levaquin and hypercarbic respiratory failure requiring BiPAP but despite multiple iterations in BiPAP and noninvasive ventilator settings and modes he was unable to tolerate nocturnal BiPAP or noninvasive ventilation during that admission. With a morning gas on 5 L of 7.35/69/93 and an overnight oximetry on 4 L showed time with saturation less than or equal to 88% was 35 minutes. Patient was discharged on 6 L at night. Currently he stated the BiPAP /7 last night was uncomfortable providing too much air and he does not think he would be able to use a machine to sleep comfortably in the hospital or at home but he is willing to try BiPAP again tonight. Currently his oxygen requirements are increased is he is on 15 L high-flow nasal cannula. His D-dimer is positive and I will order CT angiogram of the chest to exclude pulmonary emboli. (3) Pneumonia: Qualifiers: Laterality: bilateral Lung location: lower lobe of lung Pneumonia type: due to unspecified organism Qualified Code(s): J18.9 - Pneumonia, unspecified organism Code(s): J18.9 - Pneumonia, unspecified organism Status: Acute Assessment and Plan: Patient with acute onset shortness of breath, cough, change in phlegm, worsening hypoxemia and right greater than left bibasilar infiltrates on his chest x-ray. Patient has a history of stenotrophomonas maltophilia and achromobacter dentrificans both sensitive to Levaquin from the sputum on 03/11/2021. Given that he was recently in the hospital I will change him to Levaquin, vancomycin, and cefepime. History of Present Illness History of Present Illness Consult date: 05/30/21 Reason for consult: COPD Chief complaint: Respiratory distress/pneumonia Narrative: 75-year-old man with a history of tobacco use, small cell lung cancer treated in 1996 with chemo and radiation, COPD with chronic hypoxemic respiratory failure on 5 L nasal cannula oxygen at rest and with ambulation and 6 L at night, chronic hypercarbic respiratory failure who was admitted to the hospital from 03/08/21 to 03/13/21 For COPD exacerbation and healthcare associated pneumonia with sputum growing stenotrophomonas maltophilia and achromobacter both sensitive to Levaquin and hypercarbic respiratory failure requiring BiPAP but despite multiple it array shins in BiPAP and noninvasive ventilator settings and modes he was unable to tolerate nocturnal BiPAP or noninvasive ventilation during that admission. With a morning gas on 5 L of 7.35/69/
[2021-05-30 11:46] LABS: D Dimer 2.53 ug/mL (<0.48)
[2021-05-30 11:57] LABS: NT Pro B Type Natriuretic Pept 1780 pg/mL (5-100)
[2021-05-30] MEDS: methylPREDNISolone SOD SUCC 40 MG VIAL IV PUSH ×3 (12:13→23:44)
[2021-05-30 12:32] LABS: Glucose Point of Care 201 mg/dl (65-105)
[2021-05-30] MEDS: INSULIN ASPART (*BKC) 100 UNITS/ML SUB-Q ×2 (13:12→17:27)
[2021-05-30 15:34] LABS: Anion Gap 4 mmol/L (8-16); Blood Urea Nitrogen 28 mg/dL (9-20); Calcium 8.9 mg/dL (8.4-10.2); Carbon Dioxide 34 mmol/L (22-30); Chloride 90 mmol/L (98-107); Estimated CRCL calculation 65 ml/min; Estimated Glomerular Filt Rate > 60; Glucose 277 mg/dL (65-110); Magnesium 2.5 mg/dL (1.6-2.3); Potassium 4.9 mmol/L (3.4-5.0); Sodium 128 mmol/L (137-145)
[2021-05-30] MEDS: FUROSEMIDE INJ 40 MG/4 ML VIAL IV PUSH (16:41)
[2021-05-30 16:51] LABS: Glucose Point of Care 231 mg/dl (65-105)
--- NOTE | 2021-05-30 17:00 | PM.IMPN ---
Progress Note: A&P Assessment and Plan (1) Acute respiratory failure with hypoxia and hypercapnia: Code(s): J96.01 - Acute respiratory failure with hypoxia; J96.02 - Acute respiratory failure with hypercapnia Status: Acute Assessment and Plan: Patient came into the ER with worsening SOB for 1 week per . He also has a history of having lung cancer with chemotherapy radiation. On arrival to the emergency room patient was found to have pneumonia versus pulmonary edema. -pulmonology was consulted who knows him well. Recommended broad-spectrum antibiotics for hospital-acquired pneumonia which included IV vanc, cefepime, Levaquin. -IV Solu-Medrol was decreased from 60 mg q.6 to 40 mg q.6 -IV diuretics 40 mg b.i.d. will be started -The patient was not COVID vaccinated so I will order a COVID PCR. The patients initial rapid COVID in the ER was negative. He is on isolation at this time. states they have not had any contact with COVID positive people that they know of -CTA of the chest showed no PE but there was mild decreased sensitivity to motion artifact, recurrent versus chronic pneumonia with dense consolidation involving the bilateral lower lobes, right greater than left and numerous more diffuse central lobular nodules throughout the remainder of the lungs. Mild pulmonary edema with small bilateral pleural effusions. Emphysema. Chronic radiation fibrosis. Slight increase in size of several enlarged lower thoracic paramedistinal lymph nodes could be reactive versus metastatic. -the patient would like to be a full code and intubated if necessary. His would be the surrogate decisionmaker if that time comes. -05/30/21: Currently the patient is on BiPAP at 75% FiO2 with an oxygen saturation 95%. Will continue monitoring oxygenation, wean oxygen as tolerated. Appreciate pulmonology is input. (2) Sepsis: Code(s): A41.9 - Sepsis, unspecified organism Status: Acute Assessment and Plan: Each criteria for sepsis in the setting of tachycardia, hypoxia, increased respiratory rate, in the setting of pneumonia Continue IV antibiotics Continue monitoring. (3) Tachycardia: Code(s): R00.0 - Tachycardia, unspecified Status: Acute Assessment and Plan: Patient has had tachycardia throughout the day in the 115. Since he has COPD I will give him Cardizem 60 mg q.12 hours. He appears to be in sinus tachycardia. D-dimer was elevated but CTA of chest showed no PE but the sensitivity was mildly decreased due to motion artifact. Right now I believe it could be due to sepsis, CHF exacerbation, COPD exacerbation. Will continue on Lovenox 40 mg daily. Monitor tachycardia make adjustments if necessary. Will talk to Cardiology if rate is unable to be controlled. (4) Pneumonia: Qualifiers: Pneumonia type: due to unspecified organism Laterality: bilateral Lung location: lower lobe of lung Qualified Code(s): J18.9 - Pneumonia, unspecified organism Code(s): J18.9 - Pneumonia, unspecified organism Status: Acute Assessment and Plan: March 11 patient did have pneumonia then and had Stenotrophomonas maltophilia and Achromobacter dentrificans. With sensitivities IV Levaquin. The patient was discharged on Levaquin for this treatment. Hand Bander believe this could be continued infection versus hospital acquired infection IV Levaquin is started at this time as well as IV cefepime and vanc for hospital-acquired pneumonia Repeat chest x-ray ordered for the morning by the geologist Continue monitoring. (5) Acute exacerbation of chronic obstructive pulmonary disease: Code(s): J44.1 - Chronic obstructive pulmonary disease with (acute) exacerbat
[2021-05-30 20:11] LABS: Glucose Point of Care 172 mg/dl (65-105)
[2021-05-30 20:46] LABS: SARS-CoV-2 RNA PCR Negative
[2021-05-31] VITALS (39 sets, daily range): BP systolic 73–164; BP diastolic 44–85; PULSE 97–127; RESP 20–26; TEMP 34.9–37.8; O2SAT 89–100; BMI 24.7
--- NOTE | 2021-05-31 | ECHO_ITS ---
Patient Info Name: Zak Negrete Age: 76 years : 1945 Gender: Male Ht: 70 in Wt: 171 lbs BSA: 1.96 m2 HR: 120 bpm BP: 95 / 55 mmHg Heart Rhythm: Tachycardia Technical Quality: Fair Exam Date: 05/31/2021 10:44 AM Exam Location: [facility] Exam Room: ICU 4 Patient Status: Inpatient Admit Date: 05/29/2021 Staff Ordering Physician: Gricel Bearden PA-C Director Of Diversity And Inclusion: Tamara Byers RDCS Attending Provider: Gricel Bearden PA-C Referring Physician: Monisha MINER; Exam Type: CA echo doppler color flow Study Info Indications - tachycardia Complete two-dimensional, color flow and Doppler transthoracic echocardiogram is performed. Summary 1. Complete two-dimensional, color flow and Doppler transthoracic echocardiogram is performed. 2. Left ventricular chamber dimension is normal. 3. Left ventricular systolic function is mildly reduced, estimated at 50-55%. 4. There is no increased left ventricular wall thickness. 5. The left ventricular diastolic function is indeterminate. 6. The basal anteroseptal, and mid anteroseptal are hypokinetic. 7. Left atrial chamber dimension is mildly enlarged. 8. There is mild aortic valve regurgitation. 9. There is mild aortic valve sclerosis. 10. There is mild tricuspid valve regurgitation. 11. Moderate pulmonary hypertension, estimated pulmonary arterial systolic pressure is 47 mmHg. Left Ventricle Left ventricular chamber dimension is normal. Left ventricular systolic function is mildly reduced, estimated at 50-55%. There is no increased left ventricular wall thickness. The left ventricular diastolic function is indeterminate. The basal anteroseptal, and mid anteroseptal are hypokinetic. Right Ventricle Right ventricular chamber dimension is normal. Right ventricular systolic function is normal. Left Atria Left atrial chamber dimension is mildly enlarged. Right Atria Right atrial chamber dimension is normal. Atrial Septum Intact interatrial septum visualized by color flow imaging. Aortic Valve The aortic valve is trileaflet. There is mild aortic valve sclerosis. There is no aortic valve stenosis. There is mild aortic valve regurgitation. Pulmonic Valve The pulmonic valve is normal. There is no pulmonic valve stenosis. There is trace pulmonic regurgitation. Mitral Valve The mitral valve has normal leaflets. There is no mitral valve stenosis. There is trace mitral valve regurgitation. Tricuspid Valve The tricuspid valve leaflets are normal. There is no significant tricuspid valve stenosis. There is mild tricuspid valve regurgitation. Moderate pulmonary hypertension, estimated pulmonary arterial systolic pressure is 47 mmHg. Pericardium/Pleural The pericardium appears normal. There is no pericardial effusion. Inferior Vena Cava Dilated inferior vena cava with <50% collapse upon inspiration consistent with elevated right atrial pressure, 15 mmHg. Aorta The aortic root size at the sinus of Valsalva is normal. Left Ventricular Outflow Tract Name Value Normal LVOT 2D LVOT Diameter 2.2 cm LVOT Doppler
--- NOTE | 2021-05-31 00:59 | PCRCNOTE ---
Window of time for administration has passed. See next scheduled administration.
[2021-05-31] MEDS: IPRATROPIUM BR 0.02% INH SOLN 0.5 MG/2.5 ML VIAL INHALATION ×4 (03:05→20:20)
[2021-05-31 05:02] LABS: Basophils Percent Auto 0.1 % (0.2-1.2); Hematocrit 33.5 % (42.0-52.0); Hemoglobin 9.6 g/dL (14.0-18.0); Immature Granulocyte Absolute 0.08 K/mm3 (0.00-0.031); Immature Granulocyte Percent A 0.5 % (0-0.5); Lymphocytes Percent Auto 0.7 % (18.3-44.2); Mean Corpuscular HGB Conc 28.7 g/dl (32-36); Mean Corpuscular Hemoglobin 27.7 pg (26-34); Mean Corpuscular Volume 96.8 fl (80-100); Mean Platelet Volume 9.3 fl (7.4-10.4); Monocytes Absolute Auto 0.8 K/mm3 (0.1-0.6); Monocytes Percent Auto 4.9 % (2.6-8.5); Neutrophils Absolute Auto 14.4 K/mm3 (1.3-6.7); Neutrophils Percent Auto 93.8 % (45.5-73.1); Platelet Count Result 569 k/mm3 (150-375); Red Blood Count 3.46 M/mm3 (4.6-6.20); Red Cell Distribution Width 15.4 % (11.5-14.5); White Blood Count 15.4 K/mm3 (4.5-10.0)
[2021-05-31 05:18] LABS: Anion Gap 5 mmol/L (8-16); Blood Urea Nitrogen 33 mg/dL (9-20); CRP 4.9 mg/dL (<1.0); Calcium 8.9 mg/dL (8.4-10.2); Carbon Dioxide 37 mmol/L (22-30); Chloride 91 mmol/L (98-107); Estimated CRCL calculation 54 ml/min; Estimated Glomerular Filt Rate > 60; Glucose 194 mg/dL (65-110); Potassium 5.2 mmol/L (3.4-5.0); Sodium 133 mmol/L (137-145)
[2021-05-31] MEDS: methylPREDNISolone SOD SUCC 40 MG VIAL IV PUSH ×3 (05:44→18:25)
[2021-05-31] MEDS: ALBUTEROL SULFATE NEB 2.5 MG/0.5 ML INH 10 MG INHALATION (08:51)
--- NOTE | 2021-05-31 09:16 | WPDCNINT ---
Assessment and Plan Assessment and plan (1) Cardiac arrest: Code(s): I46.9 - Cardiac arrest, cause unspecified Status: Acute Assessment and Plan: PEA arrest likely related to hypoxia after he pulled out his BiPAP and was off oxygen. -ACLS protocol was initiated, patient with ROSC after 15 minutes -post cardiac arrest patient is awake, follows simple commands in all extremities and nods to questions -will not do target temperature management -obtain CT scan of the brain -echocardiogram has been ordered (2) Acute and chronic respiratory failure with hypoxia: Code(s): J96.21 - Acute and chronic respiratory failure with hypoxia Status: Acute Assessment and Plan: Acute respiratory failure likely related to hypoxia, pulmonary edema, diffuse infiltrates on chest x-ray -patient was intubated during the code -initially had peak pressures and% FiO2, a patient breathing treatment with Atrovent and added continuous albuterol, with improvement in peak airway pressure. -chest x-ray and ABGs reviewed, ventilator adjusted -continue bronchodilators (3) Pneumonia: Qualifiers: Laterality: bilateral Lung location: lower lobe of lung Pneumonia type: due to unspecified organism Qualified Code(s): J18.9 - Pneumonia, unspecified organism Code(s): J18.9 - Pneumonia, unspecified organism Status: Acute Assessment and Plan: CTA done on 05/30/2021 did not show any pulmonary embolism. Showed recurrent versus chronic pneumonia with dense consolidation involving the bilateral lower lobes, right greater than left a numerous more diffuse centrilobular nodules throughout the lungs. Mild pulmonary edema and small bilateral pleural effusion left greater than right, emphysema. Chronic radiation fibrosis, paraesophageal lymphadenopathy -patient is on cefepime, vancomycin, levofloxacin initiated 05/30/2021 -pulmonology following the patient (4) Type 2 diabetes mellitus: Code(s): E11.9 - Type 2 diabetes mellitus without complications Status: Acute Assessment and Plan: Continue sliding scale insulin and Accu-Cheks, -hemoglobin A1c this admission was 5.0 (5) Hypertension: Code(s): I10 - Essential (primary) hypertension Status: Chronic Assessment and Plan: History of essential hypertension, currently borderline blood pressures due to positive pressure ventilation and possibly diuretics -will hold all antihypertensives at this time (6) Hypothyroidism: Code(s): E03.9 - Hypothyroidism, unspecified Status: Acute Assessment and Plan: Continue levothyroxine (7) COPD exacerbation: Code(s): J44.1 - Chronic obstructive pulmonary disease with (acute) exacerbation Status: Acute Assessment and Plan: COPD with acute on chronic respiratory failure -patient uses 5-6 L of oxygen via nasal cannula at home -has failed noninvasive ventilation at home per business operations manager -continue Solu-Medrol, bronchodilators and antibiotics (8) DVT prophylaxis: Code(s): Z29.9 - Encounter for prophylactic measures, unspecified Status: Acute Assessment and Plan: DVT prophylaxis: Lovenox SQ (9) Dietary counseling and surveillance: Code(s): Z71.3 - Dietary counseling and surveillance Status: Acute Assessment and Plan: Stress ulcer prophylaxis: Protonix Will start tube feeds today Additional Plan Discussed with Nikki, and updated her with patient's condition and plan of care. I did discuss with her and updated her regarding the cardiac arrest which most likely is related to hypoxia, secondary to him pulling off his BiPAP mask. I did tell her that his cardiac arrest was for roughly 15 minutes. She did state that patient's quality of life is pretty poor and he has failure to thrive. She made him a DNR. I answered all her questions Code status: DNR Critical care time spent: 52 minutes This dictation may have been
[2021-05-31] MEDS: FUROSEMIDE INJ 40 MG/4 ML VIAL 20 MG IV PUSH (09:55)
[2021-05-31] MEDS: FUROSEMIDE INJ 40 MG/4 ML VIAL IV PUSH (09:56)
[2021-05-31 10:01] LABS: Glucose Point of Care 290 mg/dl (65-105)
[2021-05-31 10:01] LABS: Carboxyhemoglobin 0.3 % THb (0-2.0); HCO3 ABG 34.3 mEq/l (22.0-26.0); Methemoglobin ABG 0.3 %THb (0-1.5); Oxygen Content ABG 13.9 %vol (16.0-22.0); Oxygen Saturation ABG 93.2 % (95.0-100.0); Oxyhemoglobin 95.3 % THb (90.0-100.0); PO2 ABG 72.7 mmHg (80.0-100.0); Reduced Hemoglobin 4.1 %THb (0-5.0); Total Hemoglobin 10.3 g/dL (12.0-18.0); pH ABG 7.338 (7.350-7.450)
[2021-05-31 10:06] LABS: Arterial Blood Gas PEEP 10 cmH2O; Arterial Blood Gas Vent Mode CMV; Arterial Blood Gas Ventilator rate 26 /MIN; Device VENTILATOR; Fractional Inspired Oxygen 100 %; PCO2 ABG 65.4 mmHg (35.0-45.0); Site Drawn LEFT BRACHIAL
[2021-05-31 10:07] LABS: Arterial Blood Gas Tidal Volume 350 ml
[2021-05-31] MEDS: LIDOCAINE HCL 1% PF INJ 5 ML VIAL INFILTRATE (11:10)
[2021-05-31] MEDS: PANTOPRAZOLE SODIUM IV 40 MG VIAL IV PUSH (11:39)
[2021-05-31] MEDS: ENOXAPARIN 40 MG/0.4 ML SYRINGE SUB-Q (11:39)
[2021-05-31] MEDS: NEOMYCIN/POLYMYXIN/BACITRACIN OINTMENT PACKET 1 PACKET (11:40)
[2021-05-31] MEDS: MIDAZOLAM HCL (*CRX) 2 MG/2 ML VIAL IV PUSH (11:40)
[2021-05-31] MEDS: ATORVASTATIN 40 MG TABLET PO (11:40)
[2021-05-31] MEDS: MINERAL OIL/WHITE PETROLATUM OINTMENT 1 APPLIC EACH EYE ×2 (11:41→21:57)
[2021-05-31] MEDS: FENTANYL 2,500MCG/NS250ML(*CRX 2,500 MCG/250 ML BAG 10 MCG IV CONT (11:41)
--- NOTE | 2021-05-31 11:50 | PM.IMPN ---
Progress Note: A&P Assessment and Plan (1) Cardiac arrest: Code(s): I46.9 - Cardiac arrest, cause unspecified Status: Acute Assessment and Plan: PEA arrest likely related to hypoxia after he pulled out his BiPAP and was off oxygen. ACLS protocol was initiated, patient with ROSC after 15 minutes. Patient was intubated and transferred to the ICU for further monitoring and workup. Color Tester will take over here. (2) Acute and chronic respiratory failure with hypoxia: Code(s): J96.21 - Acute and chronic respiratory failure with hypoxia Status: Acute Assessment and Plan: Patient came into the ER with worsening SOB for 1 week per . He also has a history of having lung cancer with chemotherapy radiation. On arrival to the emergency room patient was found to have pneumonia versus pulmonary edema. -pulmonology was consulted who knows him well. Recommended broad-spectrum antibiotics for hospital-acquired pneumonia which included IV vanc, cefepime, Levaquin. -IV Solu-Medrol continue 40 mg q.6 -IV diuretics 40 mg b.i.d. -The patient was not COVID vaccinated , but COVID PCR was negative. -CTA of the chest showed no PE but there was mild decreased sensitivity to motion artifact, recurrent versus chronic pneumonia with dense consolidation involving the bilateral lower lobes, right greater than left and numerous more diffuse central lobular nodules throughout the remainder of the lungs. Mild pulmonary edema with small bilateral pleural effusions. Emphysema. Chronic radiation fibrosis. Slight increase in size of several enlarged lower thoracic paramedistinal lymph nodes could be reactive versus metastatic. -the patient would like to be a full code and intubated if necessary. His would be the surrogate decisionmaker if that time comes. -05/31/21: Cardiac arrest. Intubated and in the ICU. Will continue monitoring oxygenation, wean oxygen as tolerated. Appreciate pulmonology is input. (3) Pneumonia: Qualifiers: Laterality: bilateral Lung location: lower lobe of lung Pneumonia type: due to unspecified organism Qualified Code(s): J18.9 - Pneumonia, unspecified organism Code(s): J18.9 - Pneumonia, unspecified organism Status: Acute Assessment and Plan: March 11 patient did have pneumonia then and had Stenotrophomonas maltophilia and Achromobacter dentrificans. With sensitivities IV Levaquin. The patient was discharged on Levaquin for this treatment. Boring Mill Operator [employer] believe this could be continued infection versus hospital acquired infection IV Levaquin is started at this time as well as IV cefepime and vanc for hospital-acquired pneumonia Chest x-ray showing not much change arrival prior to cardiac arrest. Continue monitoring. (4) Type 2 diabetes mellitus: Code(s): E11.9 - Type 2 diabetes mellitus without complications Status: Acute Assessment and Plan: Hemoglobin A1c is 5.0%. Well controlled. Will hold the patients metformin at this time. Glucoses are elevated due to IV Solu-Medrol. Once this is wean down and glucose are within normal range. Monitoring Accu-Cheks and S. hypoglycemic protocol in place. Sliding scale insulin. (5) Hypertension: Code(s): I10 - Essential (primary) hypertension Status: Chronic Assessment and Plan: Continue home medications. Monitor blood pressure with diuretics and home medications. (6) Hypothyroidism: Code(s): E03.9 - Hypothyroidism, unspecified Status: Acute Assessment and Plan: TSH normal. Continue levothyroxine. (7) COPD exacerbation: Code(s): J44.1 - Chronic obstructive pulmonary disease with (acute) exacerbation Status: Acute Assessment and Plan: Continue with Solu-Medrol and neb treatments. See above under acute respiratory failure (8) DVT prophylaxis: Code(s): Z29.9 - [place]
[2021-05-31] MEDS: INSULIN ASPART (*BKC) 100 UNITS/ML SUB-Q (12:01)
[2021-05-31 12:03] LABS: Glucose Point of Care 327 mg/dl (65-105)
[2021-05-31] MEDS: NOREPINEPHRINE 8 MG/D5W 250 ML 8 MG/250 ML BAG 9.38 MG IV CONT (12:42)
[2021-05-31] MEDS: MIDAZOLAM 100MG/NS 100ML(*CRX) 100 MG/100 ML BAG IV CONT (12:43)
--- NOTE | 2021-05-31 15:10 | WPDPROCEDUR ---
Procedures Intubation Intubation Date: 05/31/21 A pre-procedural Time-Out was completed immediately before starting the procedure and confirmed: Patient Identification, Site, Procedure, Patient Position and the Availability of Requisite Equipment: No Sedative: none Laryngoscope: Gertrude ET tube size: 7.5 Tube secured depth (cm): 25 Tube secured location: lips Tube placement confirmation: visualized tube passing through cords, equal breath sounds bilaterally, no breath sounds over epigastrium and confirmation by capnometry Patient tolerated procedure: well Intubation complications: none
[2021-05-31] MEDS: CENTRAL LINE FLUSH 10 ML IV PUSH ×3 (15:22→21:57)
--- NOTE | 2021-05-31 15:50 | PDCODEBLUE ---
Code Blue Note Code Blue Note Time Arrived at Code Blue: I responded to the code blue and arrived at the room at 8:02 a.m.. Initial Rhythm on Arrival: Initial rhythm was PEA after which patient went into asystole. CPR was already initiated upon my arrival Airway Management: Pt intubated during resuscitation Chest Compressions: In process on arrival to bedside Result of Code Blue: Pt transferred to ICU Cardiac Rhythm Post Code: Sinus tachycardia Code Blue Summary: Patient apparently pulled out his BiPAP, was hypoxic, and when to PEA arrest at 8:01 a.m., upon my arrival CPR was hardly initiated and ACLS protocol was initiated after my arrival. Received epinephrine 6, sodium bicarb, D50, calcium. Please review adult code blue documentation in the paper chart. I intubated the patient using a MAC blade on 1st attempt. Good color change was noted. Patient had his initial return of spontaneous circulation at 8:07 a.m. and went back in to PEA arrest at 8:08 a.m.. CPR was restarted, patient had return of spontaneous circulation 8:10 a.m.. And was transferred to the ICU for further management
--- NOTE | 2021-05-31 16:12 | PC.NURSE ---
At 8am this nurse found a HR of 25 on the electronic device monitor for this patient. Upon arrival to the room, patient was found to have taken off BIPAP mask and unresponsive. No pulse felt, CPR initiated, jd arevalo was called.
--- NOTE | 2021-05-31 16:18 | PC.NURSE ---
This patient, Zak Negrete, was transferred to [ ICU-4 ] on 05/31/21 at 0805. Personal belongings sent with patient. Report given to [ JAZMYNE Abarca ]. Appropriate documentation sent with patient.
[2021-05-31 18:24] LABS: Glucose Point of Care 192 mg/dl (65-105)
[2021-05-31] MEDS: SODIUM CHLORIDE 0.9% IV 500 ML IV CONT (22:15)
[2021-05-31] MEDS: SODIUM CHLORIDE 0.9% IV 1,000 ML 75 ML IV CONT (22:35)
[2021-06-01] VITALS (34 sets, daily range): BP systolic 106–162; BP diastolic 57–87; PULSE 74–108; RESP 20–26; TEMP 36.8–37.8; O2SAT 94–100
[2021-06-01 00:12] LABS: Glucose Point of Care 157 mg/dl (65-105)
[2021-06-01] MEDS: methylPREDNISolone SOD SUCC 40 MG VIAL IV PUSH ×4 (01:15→18:35)
[2021-06-01] MEDS: IPRATROPIUM BR 0.02% INH SOLN 0.5 MG/2.5 ML VIAL INHALATION ×4 (01:59→19:53)
[2021-06-01] MEDS: FENTANYL 2,500MCG/NS250ML(*CRX 2,500 MCG/250 ML BAG 10 MCG IV CONT (02:25)
[2021-06-01 05:09] LABS: Base Excess ABG 7.3 mEq/l (+/-2.0); Carboxyhemoglobin 0.2 % THb (0-2.0); Fractional Inspired Oxygen 80 %; HCO3 ABG 29.9 mEq/l (22.0-26.0); Methemoglobin ABG 0.5 %THb (0-1.5); Oxygen Content ABG 12.8 %vol (16.0-22.0); Oxygen Saturation ABG 99.3 % (95.0-100.0); PCO2 ABG 34.4 mmHg (35.0-45.0); PO2 ABG 163.3 mmHg (80.0-100.0); PO2 FiO2 Ratio Arterial Blood 2.04 %; Reduced Hemoglobin 1.3 %THb (0-5.0)
[2021-06-01 05:11] LABS: Device VENTILATOR; Modified Allen's Test Pass; Site Drawn LEFT RADIAL; pH ABG 7.557 (7.350-7.450)
[2021-06-01 05:12] LABS: Arterial Blood Gas PEEP 10 cmH2O; Arterial Blood Gas Tidal Volume 450 ml; Arterial Blood Gas Vent Mode CMV; Arterial Blood Gas Ventilator rate 26 /MIN
[2021-06-01 05:21] LABS: Hematocrit 26.3 % (42.0-52.0); Immature Granulocyte Absolute 0.11 K/mm3 (0.00-0.031); Immature Granulocyte Percent A 0.8 % (0-0.5); Lymphocytes Absolute Auto 0.21 K/mm3 (0.9-3.2); Lymphocytes Percent Auto 1.6 % (18.3-44.2); Mean Corpuscular HGB Conc 30.4 g/dl (32-36); Mean Corpuscular Hemoglobin 27.5 pg (26-34); Mean Corpuscular Volume 90.4 fl (80-100); Mean Platelet Volume 9.1 fl (7.4-10.4); Monocytes Absolute Auto 0.7 K/mm3 (0.1-0.6); Monocytes Percent Auto 5.4 % (2.6-8.5); Neutrophils Absolute Auto 12.4 K/mm3 (1.3-6.7); Neutrophils Percent Auto 92.2 % (45.5-73.1); Platelet Count Result 396 k/mm3 (150-375); Red Blood Count 2.91 M/mm3 (4.6-6.20); Red Cell Distribution Width 15.1 % (11.5-14.5); White Blood Count 13.5 K/mm3 (4.5-10.0)
[2021-06-01 05:51] LABS: Alanine Aminotransferase 160 U/L (4-50); Albumin Level 2.9 g/dL (3.5-5.1); Alkaline Phosphatase 61 U/L (38-126); Anion Gap 9 mmol/L (8-16); Aspartate Amino Transferase 298 U/L (17-59); Bilirubin,Total 0.5 mg/dL (0.2-1.3); Blood Urea Nitrogen 49 mg/dL (9-20); Calcium 8.9 mg/dL (8.4-10.2); Carbon Dioxide 31 mmol/L (22-30); Chloride 92 mmol/L (98-107); Estimated CRCL calculation 36 ml/min; Estimated Glomerular Filt Rate 40; Glucose 226 mg/dL (65-110); Magnesium 2.1 mg/dL (1.6-2.3); Potassium 4.5 mmol/L (3.4-5.0); Sodium 132 mmol/L (137-145)
[2021-06-01] MEDS: CENTRAL LINE FLUSH 10 ML IV PUSH ×4 (05:59→22:04)
[2021-06-01] MEDS: LEVOTHYROXINE SODIUM 50 MCG TABLET PO (05:59)
[2021-06-01] MEDS: SODIUM CHLORIDE 0.9% IV 1,000 ML 75 ML IV CONT (06:00)
[2021-06-01] MEDS: ACETAMINOPHEN 325 MG TABLET 650 MG PO (06:01)
--- NOTE | 2021-06-01 06:32 | WPDCDIQUERY2 ---
CDI Query Clarification Request -Sepsis documented on 05/30 progress note problem list -Sepsis is not on 05/31 problem list and no mention of sepsis Please clarify if sepsis has been ruled in or ruled out.
[2021-06-01] MEDS: INSULIN ASPART (*BKC) 100 UNITS/ML SUB-Q ×2 (07:04→12:02)
[2021-06-01 08:37] LABS: Creatine Kinase 62 U/L (55-170)
[2021-06-01] MEDS: ENOXAPARIN 40 MG/0.4 ML SYRINGE SUB-Q (09:02)
[2021-06-01] MEDS: PANTOPRAZOLE SODIUM IV 40 MG VIAL IV PUSH (09:02)
[2021-06-01] MEDS: ATORVASTATIN 40 MG TABLET PO (09:02)
[2021-06-01] MEDS: MINERAL OIL/WHITE PETROLATUM OINTMENT 1 APPLIC EACH EYE ×2 (09:02→22:03)
[2021-06-01 10:16] LABS: Creatinine Urine 91.7 mg/dL; Potassium Urine Random 38.6 meq/L; Sodium Urine Random 8 meq/L
--- NOTE | 2021-06-01 11:01 | WPDINTPN ---
Progress Note: A&P Assessment and Plan (1) Shock: Code(s): R57.9 - Shock, unspecified Status: Acute Assessment and Plan: Shock likely septic shock, also could be related to sedation medications and positive-pressure ventilation -currently on Levophed on 1 mcg/min, maintain mean arterial pressure > 65 mm Hg. -continue antibiotics - -obtain sputum culture -blood cultures negative x2 -urine cultures pending -lactic acid is normal (2) Cardiac arrest: Code(s): I46.9 - Cardiac arrest, cause unspecified Status: Acute Assessment and Plan: 05/31/2021: PEA arrest likely related to hypoxia after he pulled out his BiPAP and was off oxygen. -ACLS protocol was initiated, patient with ROSC after 15 minutes -post cardiac arrest patient is awake, follows simple commands in all extremities and nods to questions -05/31/2021: CT brain did not show any acute intracranial abnormality, age-related findings -echocardiogram 05/31/2021 showed EF of 50-55%, normal LV chamber dimensions. LV diastolic function indeterminate. Basal anteroseptal and mid anterior septal hypokinetic. Moderate pulmonary hypertension with RVSP of 47 mmHg -will consult Cardiology (3) Acute and chronic respiratory failure with hypoxia: Code(s): J96.21 - Acute and chronic respiratory failure with hypoxia Status: Acute Assessment and Plan: Acute respiratory failure likely related to hypoxia, pulmonary edema, diffuse infiltrates on chest x-ray -patient was intubated during the code on 05/31/2021 -initially had peak pressures and% FiO2, a patient breathing treatment with Atrovent and added continuous albuterol, with improvement in peak airway pressure. -chest x-ray and ABGs reviewed, ventilator adjusted -continue bronchodilators -on peep of 10 and 80% FiO2, will decrease PEEP to 8, wean FiO2 to maintain O2 sats greater than 90% given patient has severe COPD (4) Pneumonia: Qualifiers: Pneumonia type: due to unspecified organism Laterality: bilateral Lung location: lower lobe of lung Qualified Code(s): J18.9 - Pneumonia, unspecified organism Code(s): J18.9 - Pneumonia, unspecified organism Status: Acute Assessment and Plan: CTA done on 05/30/2021: No pulmonary embolism. Showed recurrent versus chronic pneumonia with dense consolidation involving the bilateral lower lobes, right greater than left a numerous more diffuse centrilobular nodules throughout the lungs. Mild pulmonary edema and small bilateral pleural effusion left greater than right, emphysema. Chronic radiation fibrosis, paraesophageal lymphadenopathy -patient is on cefepime, vancomycin, levofloxacin initiated 05/30/2021 -pulmonology following the patient (5) Type 2 diabetes mellitus: Code(s): E11.9 - Type 2 diabetes mellitus without complications Status: Acute Assessment and Plan: Continue sliding scale insulin and Accu-Cheks, -hemoglobin A1c this admission was 5.0 (6) Hypertension: Code(s): I10 - Essential (primary) hypertension Status: Chronic Assessment and Plan: History of essential hypertension, currently borderline blood pressures due to positive pressure ventilation and possibly diuretics -will hold all antihypertensives at this time (7) Hypothyroidism: Code(s): E03.9 - Hypothyroidism, unspecified Status: Acute Assessment and Plan: Continue levothyroxine (8) COPD exacerbation: Code(s): J44.1 - Chronic obstructive pulmonary disease with (acute) exacerbation Status: Acute Assessment and Plan: COPD with acute on chronic respiratory failure -patient uses 5-6 L of oxygen via nasal cannula at home -has failed noninvasive ventilation at home per literacy coach -continue Solu-Medrol, bronchodilators and antibiotics (9) DVT prophylaxis: Code(s): Z29.9 - Encounter for prophylactic measures, unspecified Status: Acute Assessment and Plan: DVT
--- NOTE | 2021-06-01 11:48 | PCDIET ---
Nutrition Follow-Up Complete: Nutrition Diagnosis: Inadequate oral intake related to oral intubation as evidenced by NPO status. Nutrition Goal: Patient to meet estimated nutritional needs. Goal in progress. MD ordered increase to 40mL/hr Glucerna 1.2 today. Last recorded weight is 76 kg which is down from last review. Bowel Motility: Last documented BM on 05/31/21 x 1. Labs Reviewed: WBC (13.5), RBC (2.91), Hgb (8.0), Hct (26.3), Glu (226), BUN (49), Cr (1.7), Na (132), Alb (2.9) Meds Noted: NS at 75mL/hr, Vancomycin, Lipitor, Maxipime, Fentanyl, Ferrous Sulfate, Synthroid, Lovaza, Lasix, Novolog, Atrovent, Levaquin, Solu Medrol, Versed, Levophed, Protonix Additional Notes: Right buttock with friction/maceration. No documented pressure ulcers. Will continue to monitor with same goal. Nutrition Monitoring and Evaluation: Follow up every Saturday/Saturday.
[2021-06-01 12:39] LABS: Glucose Point of Care 224 mg/dl (65-105)
[2021-06-01 13:15] LABS: Eosinophil Urine None Seen % (None Seen)
--- NOTE | 2021-06-01 13:21 | PM.CNCAR ---
Assessment and Plan Assessment and plan (1) Cardiac arrest: Code(s): I46.9 - Cardiac arrest, cause unspecified Status: Acute Assessment and Plan: Predominantly seems to be a respiratory arrest resulting in PEA. Continue current drug regimen. Will add low-dose aspirin 81 mg p.o. daily. (2) Abnormal echocardiogram: Code(s): R93.1 - Abnormal findings on diagnostic imaging of heart and coronary circulation Status: Acute Assessment and Plan: Wall motion abnormalities seen. Wall motion abnormality though could be related to underlying pulmonary hypertension. Continue medical management consider stress testing if symptoms develop once extubated (3) Pulmonary hypertension: Code(s): I27.20 - Pulmonary hypertension, unspecified Status: Acute Assessment and Plan: Related underlying lung disease (4) Acute exacerbation of chronic obstructive pulmonary disease: Code(s): J44.1 - Chronic obstructive pulmonary disease with (acute) exacerbation Status: Acute Assessment and Plan: Per pulmonology/hospitalist/slot shift manager History of Present Illness History of Present Illness Consult date/time: 06/01/21 13:21 Requesting physician: Hayder Mccormack MD Consult reason: Other (Cardiac arrest) Reason For Visit: Respiratory distress/pneumonia Narrative: Date of service 06/01/2021 Reason consultation: Cardiac arrest Requesting provider Dr. Mccormack History: Patient is a 76-year-old male who has oxygen-dependent COPD who came to the hospital because of increased respiratory distress. He is found have a pneumonia and he had what initially appeared to be a respiratory arrest but then the patient had a PE a cardiac arrest requiring multiple rounds of epinephrine, bicarbonate. There was a quick mandaeism of pulse the patient was intubated and is currently still intubated and sedated although following commands reportedly when sedation is lightened. He came to the hospital because of severe respiratory distress. He was initially started on CPAP. Patient had been having some increased sputum production and was being treated for a COPD exacerbation with Solu-Medrol Rocephin and IV fluids. Apparently no history of chest pain, syncope, presyncope, edema or palpitations. Review of Systems Review of Systems: All systems reviewed & are unremarkable except as noted in HPI and below Constitutional: Constitutional: Reports weakness Eyes: Eyes: Denies blurry vision ENT: Reports Normal hearing present Cardiovascular: Cardiovascular: Denies chest pain Respiratory: Respiratory: Reports dyspnea Gastrointestinal: Gastrointestinal: Denies abdominal pain Genitourinary: Genitourinary: Denies dysuria Musculoskeletal: Musculoskeletal: Denies neck pain Integumentary/Breasts: Skin/Breast: Denies dry skin Neurologic: Denies headache(s) and Denies numbness Psychiatric: Psychiatric: Denies behavioral changes Endocrine: Endocrine: Denies excessive sweating Hematologic/Lymphatic: Hematologic/Lymphatic: Denies easy bleeding Allergic/Immunologic: Allergic/Immunologic: Denies GI upset with certain foods PMFSH Past Medical History Medical History Asthma Benign prostatic hyperplasia Cancer of right lung (~1996) 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 Chronic obstructive pulmonary disease Chronic respiratory failure with hypoxia, on home oxygen therapy On 2 L nasal cannula. Gastroesophageal reflux disease Hyperlipidemia Hypertension Hypothyroidism Osteoarthritis Osteoarthritis Peripheral neuropathy Type 2 diabetes mellitus Hemoglobin A1c was 5.7% on 03/11/2020. Surgical History Surgical History History of right hip replacement Status post surgical removal of malignant neoplasm of skin Excision skin canc
--- NOTE | 2021-06-01 14:16 | PM.CNNEP ---
Assessment and Plan Assessment and plan (1) Acute kidney injury: Code(s): N17.9 - Acute kidney failure, unspecified Status: Acute Assessment and Plan: likely multifactorial ATN: - cardiac arrest - hemodynamic instability - early sepsis - contrast from CTA of chest known history of HTN and DM could be playing a role urine output low and BUN + creatinine rising agree with vasopressor support in an effort to maintain renal perfusion follow-up on urine lytes, CPK, and renal ultrasound follow trend of repeat labs and UOP (2) Cardiac arrest: Code(s): I46.9 - Cardiac arrest, cause unspecified Status: Acute Assessment and Plan: suspect PEA arrest due to hypoxia (pulled off BiPAP and was off oxygen) s/p ACLS protocol -- ROSC after 15 minutes Cardiology consulted for further evaluation (3) Shock: Code(s): R57.9 - Shock, unspecified Status: Acute Assessment and Plan: on vasopressor support at this time due to sedation versus PPV versus early sepsis... follow culture data on antibiotics follow trend of hemodynamics (4) Acute and chronic respiratory failure with hypoxia: Code(s): J96.21 - Acute and chronic respiratory failure with hypoxia Status: Acute Assessment and Plan: intubated during the code/cardiac arrest (on 05/31/2021) continue ventilator support complicated by pneumonia and COPD continue supportive therapy (5) Pneumonia: Qualifiers: Pneumonia type: due to unspecified organism Laterality: bilateral Lung location: lower lobe of lung Qualified Code(s): J18.9 - Pneumonia, unspecified organism Code(s): J18.9 - Pneumonia, unspecified organism Status: Acute Assessment and Plan: Chest CT with recurrent versus chronic pneumonia with dense consolidation involving the bilateral lower lobes, right greater than left a numerous more diffuse centrilobular nodules throughout the lungs as well as mild pulmonary edema and small bilateral pleural effusion left greater than right, emphysema; chronic radiation fibrosis on broad spectrum antibiotics Pulmonary following as well (6) Chronic obstructive pulmonary disease: Code(s): J44.9 - Chronic obstructive pulmonary disease, unspecified Status: Chronic Assessment and Plan: normally uses 5 - 6 L of oxygen via nasal cannula at home failed noninvasive ventilation at home per senior examiner continue steroids, bronchodilators and antibiotics (7) DM2 (diabetes mellitus, type 2): Code(s): E11.9 - Type 2 diabetes mellitus without complications Status: Chronic Assessment and Plan: follow accuchecks glycemic control Will continue to follow. History of Present Illness Reason for Consult Consult date: 06/01/21 Reason for consult: acute renal failure Chief Complaint Chief complaint: Respiratory distress/pneumonia History of Present Illness Narrative: All of the information I have obtained is from review of the electronic medical record as well as discussion with the patient's physicians an nurses involved in his care as he is currently intubated/ sedated and unable to provide me with any history that led to his subsequent admission to the hospital. The patient is a 76 year old male with a past medical history as outlined below presented the [facility] ER 3 days ago with shortness of breath and dyspnea. His shortness of breath/dyspnea apparently had been going on for approximately 24-48 hours prior to his presentation but acutely worsened on the afternoon of his presentation and appeared to be getting worse despite all conservative therapy instituted. Associated symptoms included a productive cough of yellow sputum but no overt fever, chills, chest pain, hemoptysis, or wheezing. As the symptoms continued to progressively get worse, he presented to
--- NOTE | 2021-06-01 14:16 | P.CONNP_ITS ---
Assessment and Plan Assessment and plan (1) Acute kidney injury: Code(s): N17.9 - Acute kidney failure, unspecified Status: Acute Assessment and Plan: * likely multifactorial ATN: - cardiac arrest - hemodynamic instability - early sepsis - contrast from CTA of chest * known history of HTN and DM could be playing a role * urine output low and BUN + creatinine rising * agree with vasopressor support in an effort to maintain renal perfusion * follow-up on urine lytes, CPK, and renal ultrasound * follow trend of repeat labs and UOP (2) Cardiac arrest: Code(s): I46.9 - Cardiac arrest, cause unspecified Status: Acute Assessment and Plan: * suspect PEA arrest due to hypoxia (pulled off BiPAP and was off oxygen) * s/p ACLS protocol -- ROSC after 15 minutes * Cardiology consulted for further evaluation (3) Shock: Code(s): R57.9 - Shock, unspecified Status: Acute Assessment and Plan: * on vasopressor support at this time * due to sedation versus PPV versus early sepsis... * follow culture data * on antibiotics * follow trend of hemodynamics (4) Acute and chronic respiratory failure with hypoxia: Code(s): J96.21 - Acute and chronic respiratory failure with hypoxia Status: Acute Assessment and Plan: * intubated during the code/cardiac arrest (on 05/31/2021) * continue ventilator support * complicated by pneumonia and COPD * continue supportive therapy (5) Pneumonia: Qualifiers: Pneumonia type: due to unspecified organism Laterality: bilateral Lung location: lower lobe of lung Qualified Code(s): J18.9 - Pneumonia, unspecified organism Code(s): J18.9 - Pneumonia, unspecified organism Status: Acute Assessment and Plan: * Chest CT with recurrent versus chronic pneumonia with dense consolidation involving the bilateral lower lobes, right greater than left a numerous more diffuse centrilobular nodules throughout the lungs as well as mild pulmonary edema and small bilateral pleural effusion left greater than right, emphysema; chronic radiation fibrosis * on broad spectrum antibiotics * Pulmonary following as well (6) Chronic obstructive pulmonary disease: Code(s): J44.9 - Chronic obstructive pulmonary disease, unspecified Status: Chronic Assessment and Plan: * normally uses 5 - 6 L of oxygen via nasal cannula at home * failed noninvasive ventilation at home per bin worker * continue steroids, bronchodilators and antibiotics (7) DM2 (diabetes mellitus, type 2): Code(s): E11.9 - Type 2 diabetes mellitus without complications Status: Chronic Assessment and Plan: * follow accuchecks * glycemic control Will continue to follow. History of Present Illness Reason for Consult Consult date: 06/01/21 Reason for consult: acute renal failure Chief Complaint Chief complaint: Respiratory distress/pneumonia History of Present Illness Narrative: All of the information I have obtained is from review of the electronic medical record as well as discussion with the patient's physicians an nurses involved in his care as he is currently intubated/ sedated and unable to provide me with any history that led to his subsequent admission to the hospital. The patient is a 76 year old male with a past medical history as outlined below presented the [facility] 3 days ago with shortness of breath and dyspnea. His shortness of breat
[2021-06-01] MEDS: MIDAZOLAM 100MG/NS 100ML(*CRX) 100 MG/100 ML BAG IV CONT (18:58)
[2021-06-01 19:36] LABS: Vancomycin Trough 25.1 ug/mL (10.0-20.0)
[2021-06-01 21:05] LABS: Glucose Point of Care 192 mg/dl (65-105)
[2021-06-01] MEDS: FENTANYL 2,500MCG/NS250ML(*CRX 2,500 MCG/250 ML BAG 17.5 MCG IV CONT (23:23)
[2021-06-02] VITALS (26 sets, daily range): BP systolic 110–150; BP diastolic 55–95; PULSE 79–118; RESP 13–23; TEMP 36.5–37.2; O2SAT 93–97
[2021-06-02] MEDS: methylPREDNISolone SOD SUCC 40 MG VIAL IV PUSH ×4 (00:07→17:58)
[2021-06-02] MEDS: INSULIN ASPART (*BKC) 100 UNITS/ML SUB-Q ×3 (00:16→12:06)
[2021-06-02 00:32] LABS: Glucose Point of Care 227 mg/dl (65-105)
[2021-06-02] MEDS: SODIUM CHLORIDE 0.9% IV 1,000 ML 50 ML IV CONT ×2 (00:56→22:04)
[2021-06-02] MEDS: IPRATROPIUM BR 0.02% INH SOLN 0.5 MG/2.5 ML VIAL INHALATION ×4 (02:14→20:19)
[2021-06-02 04:33] LABS: Alveolar/Arterial O2 Gradient 190.7 mmHg; Base Excess ABG 7.2 mEq/l (+/-2.0); Carboxyhemoglobin 0.2 % THb (0-2.0); Fractional Inspired Oxygen 40 %; HCO3 ABG 30.2 mEq/l (22.0-26.0); Methemoglobin ABG 0.9 %THb (0-1.5); Oxygen Content ABG 9.4 %vol (16.0-22.0); Oxygen Saturation ABG 91.5 % (95.0-100.0); Oxyhemoglobin 90.5 % THb (90.0-100.0); PCO2 ABG 35.8 mmHg (35.0-45.0); PO2 ABG 53.3 mmHg (80.0-100.0); PO2 FiO2 Ratio Arterial Blood 1.33 %; Reduced Hemoglobin 8.4 %THb (0-5.0)
[2021-06-02 04:35] LABS: pH ABG 7.544 (7.350-7.450)
[2021-06-02 04:36] LABS: Device VENTILATOR; Modified Allen's Test Pass; Site Drawn LEFT RADIAL; Total Hemoglobin 7.3 g/dL (12.0-18.0)
[2021-06-02 05:53] LABS: Hematocrit 24.5 % (42.0-52.0); Hemoglobin 7.5 g/dL (14.0-18.0); Mean Corpuscular HGB Conc 30.6 g/dl (32-36); Mean Corpuscular Hemoglobin 27.8 pg (26-34); Mean Corpuscular Volume 90.7 fl (80-100); Mean Platelet Volume 9.5 fl (7.4-10.4); Platelet Count Result 331 k/mm3 (150-375); Red Cell Distribution Width 15.5 % (11.5-14.5); White Blood Count 13.3 K/mm3 (4.5-10.0)
[2021-06-02] MEDS: CENTRAL LINE FLUSH 10 ML IV PUSH ×4 (06:03→22:04)
[2021-06-02 06:04] LABS: Alanine Aminotransferase 99 U/L (4-50); Albumin Level 2.7 g/dL (3.5-5.1); Alkaline Phosphatase 77 U/L (38-126); Anion Gap 2 mmol/L (8-16); Aspartate Amino Transferase 100 U/L (17-59); Bilirubin,Total 0.2 mg/dL (0.2-1.3); Blood Urea Nitrogen 54 mg/dL (9-20); Calcium 8.7 mg/dL (8.4-10.2); Carbon Dioxide 35 mmol/L (22-30); Chloride 96 mmol/L (98-107); Estimated CRCL calculation 40 ml/min; Estimated Glomerular Filt Rate 46; Glucose 256 mg/dL (65-110); Potassium 3.8 mmol/L (3.4-5.0); Sodium 133 mmol/L (137-145)
[2021-06-02] MEDS: LEVOTHYROXINE SODIUM 50 MCG TABLET PO (06:04)
[2021-06-02] MEDS: INSULIN GLARGINE (*BKC) 100 UNITS/ML SUB-Q (08:39)
[2021-06-02] MEDS: ENOXAPARIN 40 MG/0.4 ML SYRINGE SUB-Q (08:39)
[2021-06-02] MEDS: PANTOPRAZOLE SODIUM IV 40 MG VIAL IV PUSH (08:39)
[2021-06-02] MEDS: ATORVASTATIN 40 MG TABLET PO (08:39)
[2021-06-02] MEDS: ASPIRIN 81 MG CHEWABLE TABLET PO (08:39)
--- NOTE | 2021-06-02 08:45 | PM.PNCARD ---
Progress Note: A&P Assessment and Plan (1) Cardiac arrest: Code(s): I46.9 - Cardiac arrest, cause unspecified Status: Acute Assessment and Plan: Predominantly seems to be a respiratory arrest resulting in PEA. Continue current drug regimen. (2) Abnormal echocardiogram: Code(s): R93.1 - Abnormal findings on diagnostic imaging of heart and coronary circulation Status: Acute Assessment and Plan: Wall motion abnormalities seen. Wall motion abnormality though could be related to underlying pulmonary hypertension. Continue medical management consider stress testing depending on symptoms once extubated (3) Pulmonary hypertension: Code(s): I27.20 - Pulmonary hypertension, unspecified Status: Acute Assessment and Plan: Related underlying lung disease (4) Acute exacerbation of chronic obstructive pulmonary disease: Code(s): J44.1 - Chronic obstructive pulmonary disease with (acute) exacerbation Status: Acute Assessment and Plan: Per pulmonology/hospitalist/evaluation assistant Subjective Date/time seen: 06/02/21 08:45 Interval history: Reason for consult: Cardiac arrest, hypoxic respiratory failure, pneumonia Date of service 06/02/2021: He is responsive. Status post PEA arrest likely from COPD exacerbation and pneumonia. No arrhythmia overnight. Review of Systems Review of Systems: All systems reviewed & are unremarkable except as noted in HPI and below Constitutional: Constitutional: Denies excessive sweating, Denies headache(s) and Reports weakness Eyes: Eyes: Denies blurry vision ENT: Reports Normal hearing present, Denies headache(s) and Denies neck pain Cardiovascular: Cardiovascular: Denies chest pain and Reports dyspnea Respiratory: Respiratory: Reports dyspnea Gastrointestinal: Gastrointestinal: Denies abdominal pain Genitourinary: Genitourinary: Denies dysuria Musculoskeletal: Musculoskeletal: Denies neck pain and Denies numbness Integumentary/Breasts: Skin/Breast: Denies dry skin Neurologic: Reports Normal hearing present, Denies behavioral changes, Denies headache(s), Denies numbness and Reports weakness Psychiatric: Psychiatric: Denies behavioral changes Endocrine: Endocrine: Denies excessive sweating Hematologic/Lymphatic: Hematologic/Lymphatic: Denies easy bleeding Allergic/Immunologic: Allergic/Immunologic: Denies GI upset with certain foods Exam Narrative: Appears stated age Const: General: comfortable HENMT: General nose exam: Normal nares present Eyes: Sclera: sclerae normal Neck: Neck: supple and no JVD Chest: Other: No chest wall pain to palpation Resp: Auscultation: diminished lung sounds Cardio: Rate: regular rate Rhythm: regular rhythm GI: Inspection: non-distended Skin: General skin exam: normal color Neuro: Cranial nerves: Yes Normal hearing present Other: Intubated but is alert Extrem: General: normal to inspection and no edema Psych: Other: Grossly normal Objective Data Vital Signs Vital Signs: Vital Signs - 24 hr 06/01/21 09:52 06/01/21 09:55 06/01/21 10:00 Temperature Pulse Rate 94 93 90 Respiratory Rate 22 H 22 H Blood Pressure 117/57 L Pulse Oximetry 99 99 06/01/21 10:22 06/01/21 12:00 06/01/21 13:02 Temperature 36.8 C Pulse Rate 98 90 89 Respiratory Rate 22 H 22 H Blood Pressure 117/57 L Pulse Oximetry 97 96 96 06/01/21 13:10 06/01/21 14:00 06/01/21 16:00 Temperature 37.1 C Pulse Rate 89 90 93 Respiratory Rate 22 H 22 H 22 H Blood Pressure 126/64 126/60 Pulse Oximetry 96 95 06/01/21 17:06 06/01/21 18:00 06/01/21 18:58 Temperature 37.0 C Pulse Rate 95 90 101 H Respiratory Rate 22 H 22 H Blood Pressure 124/61 Pulse Oximetry 95 94 06/01/21 19:54 06/01/21 19:56 06/01/21 20:00 Temperature 37.2 C Pulse Rate 87 87 97 Respiratory Rate 22 H 22 H Blood Pressure 136/67 Pulse Oximetry 96 98 06/01/21 20:03 06/01/21
--- NOTE | 2021-06-02 09:05 | WPDINTPN ---
Progress Note: A&P Assessment and Plan (1) Shock: Code(s): R57.9 - Shock, unspecified Status: Acute Assessment and Plan: RESOLVED: OFF LEVOPHED Shock likely septic shock, also could be related to sedation medications and positive-pressure ventilation. -continue vancomycin, cefepime, levofloxacin per pulmonology - -blood cultures negative x2 -urine cultures pending -SPUTUM CULTURES -lactic acid is normal (2) Cardiac arrest: Code(s): I46.9 - Cardiac arrest, cause unspecified Status: Acute Assessment and Plan: 05/31/2021: PEA arrest likely related to hypoxia after he pulled out his BiPAP and was off oxygen. -ACLS protocol was initiated, patient with ROSC after 15 minutes -post cardiac arrest patient is awake, follows simple commands in all extremities and nods to questions -05/31/2021: CT brain did not show any acute intracranial abnormality, age-related findings -echocardiogram 05/31/2021 showed EF of 50-55%, normal LV chamber dimensions. LV diastolic function indeterminate. Basal anteroseptal and mid anterior septal hypokinetic. Moderate pulmonary hypertension with RVSP of 47 mmHg -appreciate cardiology evaluation recommendation (3) Acute and chronic respiratory failure with hypoxia: Code(s): J96.21 - Acute and chronic respiratory failure with hypoxia Status: Acute Assessment and Plan: Acute respiratory failure likely related to hypoxia, pulmonary edema, diffuse infiltrates on chest x-ray -patient was intubated during the code on 05/31/2021 -initially had peak pressures and% FiO2, a patient breathing treatment with Atrovent and added continuous albuterol, with improvement in peak airway pressure. -chest x-ray and ABGs reviewed, ventilator adjusted -continue bronchodilators -on peep of 8 and 40% FiO2 -will wean sedation as and evaluate for extubation (4) Pneumonia: Qualifiers: Pneumonia type: due to unspecified organism Laterality: bilateral Lung location: lower lobe of lung Qualified Code(s): J18.9 - Pneumonia, unspecified organism Code(s): J18.9 - Pneumonia, unspecified organism Status: Acute Assessment and Plan: CTA done on 05/30/2021: No pulmonary embolism. Showed recurrent versus chronic pneumonia with dense consolidation involving the bilateral lower lobes, right greater than left a numerous more diffuse centrilobular nodules throughout the lungs. Mild pulmonary edema and small bilateral pleural effusion left greater than right, emphysema. Chronic radiation fibrosis, paraesophageal lymphadenopathy -patient is on cefepime, vancomycin, levofloxacin initiated 05/30/2021 -pulmonology following the patient (5) Type 2 diabetes mellitus: Code(s): E11.9 - Type 2 diabetes mellitus without complications Status: Acute Assessment and Plan: Continue sliding scale insulin and Accu-Cheks, -hemoglobin A1c this admission was 5.0 -Lantus added (6) Hypertension: Code(s): I10 - Essential (primary) hypertension Status: Chronic Assessment and Plan: History of essential hypertension, currently borderline blood pressures due to positive pressure ventilation and possibly diuretics -will hold all antihypertensives at this time (7) Hypothyroidism: Code(s): E03.9 - Hypothyroidism, unspecified Status: Acute Assessment and Plan: Continue levothyroxine (8) COPD exacerbation: Code(s): J44.1 - Chronic obstructive pulmonary disease with (acute) exacerbation Status: Acute Assessment and Plan: COPD with acute on chronic respiratory failure -patient uses 5-6 L of oxygen via nasal cannula at home -has failed noninvasive ventilation at home per [place] m[employer] -continue Solu-Medrol, bronchodilators and antibiotics (9) DVT prophylaxis: Code(s): Z29.9 - Encounter for prophylactic measures, unspecified Status: Acute Assessment and Plan: DVT prophylaxis: Lovenox SQ (10)
[2021-06-02 09:11] LABS: Arterial Blood Gas PEEP 5 cmH2O; Arterial Blood Gas Tidal Volume 450 ml; Arterial Blood Gas Vent Mode CMV; Arterial Blood Gas Ventilator rate 22 /MIN
[2021-06-02 09:32] LABS: Lactate Dehydrogenase 412 U/L (313-618)
[2021-06-02 11:23] LABS: Hypochromasia 2+ (NORMAL); Lymphocytes Absolute Manual 0.13 K/mm3 (1.1-4.5); Neutrophils Percent Manual 99 % (46-73); Platelet Estimate Adequate (Adequate); Schistocytes 1+ (NORMAL); Total Cells Counted 100
[2021-06-02 11:48] LABS: Glucose Point of Care 213 mg/dl (65-105)
--- NOTE | 2021-06-02 11:59 | PCDIET ---
Nutrition Follow-Up Complete: Nutrition Diagnosis: Inadequate oral intake related to oral intubation as evidenced by NPO status. Nutrition Goal: Patient to meet estimated nutritional needs. Goal in progress. Tube feedings currently held for possible extubation. Recommend increasing Glucerna to goal of 60mL/hr if unable to extubate. Last recorded weight is 80.4 kg which is increased from last review. +I/O. Bowel Motility: Last documented BM on 05/31/21 x 1. Labs Reviewed: WBC (13.3), RBC (2.70), Hgb (7.5), Hct (24.5), Glu (256), BUN (54), Cr (1.5), Na (133), Alb (2.7) Meds Noted: Lipitor, Maxipime, Fentanyl, Novolog, Lantus, Atrovent, Levaquin, Synthroid, Solu Medrol, Versed, Protonix, Vancomycin, NS at 75mL/hr Additional Notes: Bilateral buttocks macerated. Will continue to monitor with same goal. Nutrition Monitoring and Evaluation: Follow up every Saturday/Saturday.
[2021-06-02 13:26] LABS: Base Excess ABG 5.6 mEq/l (+/-2.0); Fractional Inspired Oxygen 40 %; HCO3 ABG 31.1 mEq/l (22.0-26.0); Oxygen Content ABG 11.7 %vol (16.0-22.0); Oxygen Saturation ABG 94.4 % (95.0-100.0); Oxyhemoglobin 92.8 % THb (90.0-100.0); PCO2 ABG 50.4 mmHg (35.0-45.0); PO2 ABG 72.2 mmHg (80.0-100.0); Total Hemoglobin 8.9 g/dL (12.0-18.0); pH ABG 7.408 (7.350-7.450)
[2021-06-02 13:27] LABS: Arterial Blood Gas PEEP 5 cmH2O; Arterial Blood Gas Pressure Support 8 cmH2O; Arterial Blood Gas Vent Mode SPONTANEOUS; Device VENTILATOR; Modified Allen's Test Pass; Site Drawn LEFT RADIAL
--- NOTE | 2021-06-02 14:00 | PM.PNNEP ---
Progress Note: A&P Assessment and Plan (1) Acute kidney injury: Code(s): N17.9 - Acute kidney failure, unspecified Status: Acute Assessment and Plan: improving likely multifactorial ATN: - cardiac arrest - hemodynamic instability - early sepsis - contrast from CTA of chest known history of HTN and DM could be playing a role urine output low and BUN + creatinine rising continue efforts to optimize hemodynamics follow-up on urine lytes, CPK, and renal ultrasound follow trend of repeat labs and UOP (2) Cardiac arrest: Code(s): I46.9 - Cardiac arrest, cause unspecified Status: Acute Assessment and Plan: suspect PEA arrest due to hypoxia (pulled off BiPAP and was off oxygen) s/p ACLS protocol -- ROSC after 15 minutes Cardiology recommendations noted (3) Shock: Code(s): R57.9 - Shock, unspecified Status: Acute Assessment and Plan: off levophed due to sedation versus PPV versus early sepsis... follow culture data on antibiotics follow trend of hemodynamics (4) Acute and chronic respiratory failure with hypoxia: Code(s): J96.21 - Acute and chronic respiratory failure with hypoxia Status: Acute Assessment and Plan: intubated during the code/cardiac arrest (on 05/31/2021) continue ventilator support -- possible extubation? complicated by pneumonia and COPD continue supportive therapy (5) Pneumonia: Qualifiers: Pneumonia type: due to unspecified organism Laterality: bilateral Lung location: lower lobe of lung Qualified Code(s): J18.9 - Pneumonia, unspecified organism Code(s): J18.9 - Pneumonia, unspecified organism Status: Acute Assessment and Plan: Chest CT with recurrent versus chronic pneumonia with dense consolidation involving the bilateral lower lobes, right greater than left a numerous more diffuse centrilobular nodules throughout the lungs as well as mild pulmonary edema and small bilateral pleural effusion left greater than right, emphysema; chronic radiation fibrosis on broad spectrum antibiotics Pulmonary following as well (6) Chronic obstructive pulmonary disease: Code(s): J44.9 - Chronic obstructive pulmonary disease, unspecified Status: Chronic Assessment and Plan: normally uses 5 - 6 L of oxygen via nasal cannula at home failed noninvasive ventilation at home per dye tank tender continue steroids, bronchodilators and antibiotics (7) DM2 (diabetes mellitus, type 2): Code(s): E11.9 - Type 2 diabetes mellitus without complications Status: Chronic Assessment and Plan: follow accuchecks glycemic control Will continue to follow. Subjective Date/time seen: 06/02/21 14:00 Remains on ventilator support and has been weaned off pressors with stable hemodynamics; better urine output noted with improvement in renal function as well; no issues/events overnight or earlier this AM; following simple commands; noted plans for possible extubation this afternoon. Exam Narrative: General: Elderly male intubated but in NAD Heart: normal S1 and S2; no rub Lungs: coarse with decreased BS at bases Abdomen: soft, nontender, nondistended, positive bowel sounds Extremities: no cyanosis or clubbing; trace edema Skin: warm and dry Objective Data Vital Signs Vital Signs: Vital Signs Temp Pulse Resp BP Pulse Ox 06/02/21 12:00 36.6 C 104 H 18 139/75 97 06/02/21 10:45 108 H 95 06/02/21 10:00 108 H 22 H 110/57 L 95 06/02/21 09:00 91 22 H 06/02/21 08:42 95 19 06/02/21 08:31 92 96 06/02/21 08:30 94 18 06/02/21 08:00 36.8 C 93 22 H 143/67 H 95 06/02/21 06:00 36.9 C 88 22 H 125/59 L 95 06/02/21 04:43 102 H 94 06/02/21 04:00 37.0 C 95 22 H 115/67 94 06/02/21 02:24 87 22 H 06/02/21 02:14 84 23 H 9
--- NOTE | 2021-06-02 14:00 | P.PNNP_ITS ---
Progress Note: A&P Assessment and Plan (1) Acute kidney injury: Code(s): N17.9 - Acute kidney failure, unspecified Status: Acute Assessment and Plan: * improving * likely multifactorial ATN: - cardiac arrest - hemodynamic instability - early sepsis - contrast from CTA of chest * known history of HTN and DM could be playing a role * urine output low and BUN + creatinine rising * continue efforts to optimize hemodynamics * follow-up on urine lytes, CPK, and renal ultrasound * follow trend of repeat labs and UOP (2) Cardiac arrest: Code(s): I46.9 - Cardiac arrest, cause unspecified Status: Acute Assessment and Plan: * suspect PEA arrest due to hypoxia (pulled off BiPAP and was off oxygen) * s/p ACLS protocol -- ROSC after 15 minutes * Cardiology recommendations noted (3) Shock: Code(s): R57.9 - Shock, unspecified Status: Acute Assessment and Plan: * off levophed * due to sedation versus PPV versus early sepsis... * follow culture data * on antibiotics * follow trend of hemodynamics (4) Acute and chronic respiratory failure with hypoxia: Code(s): J96.21 - Acute and chronic respiratory failure with hypoxia Status: Acute Assessment and Plan: * intubated during the code/cardiac arrest (on 05/31/2021) * continue ventilator support -- possible extubation? * complicated by pneumonia and COPD * continue supportive therapy (5) Pneumonia: Qualifiers: Pneumonia type: due to unspecified organism Laterality: bilateral Lung location: lower lobe of lung Qualified Code(s): J18.9 - Pneumonia, unspecified organism Code(s): J18.9 - Pneumonia, unspecified organism Status: Acute Assessment and Plan: * Chest CT with recurrent versus chronic pneumonia with dense consolidation involving the bilateral lower lobes, right greater than left a numerous more diffuse centrilobular nodules throughout the lungs as well as mild pulmonary edema and small bilateral pleural effusion left greater than right, emphysema; chronic radiation fibrosis * on broad spectrum antibiotics * Pulmonary following as well (6) Chronic obstructive pulmonary disease: Code(s): J44.9 - Chronic obstructive pulmonary disease, unspecified Status: Chronic Assessment and Plan: * normally uses 5 - 6 L of oxygen via nasal cannula at home * failed noninvasive ventilation at home per pond sawyer * continue steroids, bronchodilators and antibiotics (7) DM2 (diabetes mellitus, type 2): Code(s): E11.9 - Type 2 diabetes mellitus without complications Status: Chronic Assessment and Plan: * follow accuchecks * glycemic control Will continue to follow. Subjective Date/time seen: 06/02/21 14:00 Remains on ventilator support and has been weaned off pressors with stable hemodynamics; better urine output noted with improvement in renal function as well; no issues/events overnight or earlier this AM; following simple commands; noted plans for possible extubation this afternoon. Exam Narrative: General: Elderly male intubated but in NAD Heart: normal S1 and S2; no rub Lungs: coarse with decreased BS at bases Abdomen: soft, nontender, nondistended, positive bowel sounds Extremities: no cyanosis or clubbing; trace edema Skin: warm and dry Objective Data Vital Signs Vital Signs:
--- NOTE | 2021-06-02 16:19 | PC.NURSE ---
CALLED PATIENT'S TO UPDATE HER ON HIS CONDITION. EXPLAINED THAT PATIENT WAS PLACED ON BIPAP TO TRY TO IMPROVE OXYGENATION. PATIENT'S CONFIRMED SHE DOESN'T WANT HIM REINTUBATED. SAID WE WOULD KEEP HER UPDATED.
[2021-06-02 18:02] LABS: Glucose Point of Care 170 mg/dl (65-105)
[2021-06-02] MEDS: MINERAL OIL/WHITE PETROLATUM OINTMENT 1 APPLIC EACH EYE (22:05)
[2021-06-02 22:47] LABS: Phosphorus 4.5 mg/dL (2.5-4.5)
[2021-06-03] VITALS (17 sets, daily range): BP systolic 106–179; BP diastolic 57–89; PULSE 96–137; RESP 13–20; TEMP 35.8–36.7; O2SAT 80–97
[2021-06-03 00:16] LABS: Glucose Point of Care 187 mg/dl (65-105)
[2021-06-03] MEDS: IPRATROPIUM BR 0.02% INH SOLN 0.5 MG/2.5 ML VIAL INHALATION ×2 (01:49→07:53)
[2021-06-03] MEDS: MORPHINE SULFATE (*CRX) 2 MG/ML INJ IV PUSH (02:19)
[2021-06-03] MEDS: FUROSEMIDE INJ 40 MG/4 ML VIAL IV PUSH (02:19)
[2021-06-03 04:32] LABS: Alveolar/Arterial O2 Gradient 407.5 mmHg; Base Excess ABG 1.5 mEq/l (+/-2.0); Carboxyhemoglobin 0.2 % THb (0-2.0); Fractional Inspired Oxygen 90 %; HCO3 ABG 33.9 mEq/l (22.0-26.0); Methemoglobin ABG 0.7 %THb (0-1.5); Oxygen Content ABG 13.6 %vol (16.0-22.0); Oxygen Saturation ABG 95.2 % (95.0-100.0); Oxyhemoglobin 95.3 % THb (90.0-100.0); PO2 ABG 109.9 mmHg (80.0-100.0); PO2 FiO2 Ratio Arterial Blood 1.22 %; Reduced Hemoglobin 3.8 %THb (0-5.0)
[2021-06-03 04:33] LABS: Device NON-INVASIVE VENT; PCO2 ABG 121.3 mmHg (35.0-45.0); Site Drawn RIGHT BRACHIAL; pH ABG 7.064 (7.350-7.450)
[2021-06-03 04:34] LABS: Non-Invasive Expiratory Pressure 6 CMH2O; Non-Invasive Inspiratory Pressure 12 CMH2O; Non-Invasive Vent Rate 14 /MIN
[2021-06-03] MEDS: methylPREDNISolone SOD SUCC 40 MG VIAL IV PUSH ×2 (05:40)
[2021-06-03] MEDS: CENTRAL LINE FLUSH 10 ML IV PUSH (05:42)
[2021-06-03 05:47] LABS: Basophils Percent Auto 0.1 % (0.2-1.2); Eosinophils Percent Auto 0.1 % (0-4.4); Hematocrit 30.4 % (42.0-52.0); Hemoglobin 8.9 g/dL (14.0-18.0); Immature Granulocyte Absolute 0.51 K/mm3 (0.00-0.031); Immature Granulocyte Percent A 1.7 % (0-0.5); Lymphocytes Absolute Auto 0.18 K/mm3 (0.9-3.2); Lymphocytes Percent Auto 0.6 % (18.3-44.2); Mean Corpuscular HGB Conc 29.3 g/dl (32-36); Mean Corpuscular Hemoglobin 27.8 pg (26-34); Mean Platelet Volume 9.2 fl (7.4-10.4); Monocytes Absolute Auto 1.6 K/mm3 (0.1-0.6); Monocytes Percent Auto 5.1 % (2.6-8.5); Neutrophils Absolute Auto 28.4 K/mm3 (1.3-6.7); Neutrophils Percent Auto 92.4 % (45.5-73.1); Platelet Count Result 524 k/mm3 (150-375); Red Cell Distribution Width 16.6 % (11.5-14.5); White Blood Count 30.7 K/mm3 (4.5-10.0)
--- NOTE | 2021-06-03 06:01 | PC.NURSE ---
0500- RESPIRATORY THERAPIST NOTIFIED OF ORDER TO TITRATE TIDAL VOLUME
[2021-06-03 06:04] LABS: Alanine Aminotransferase 95 U/L (4-50); Albumin Level 3.3 g/dL (3.5-5.1); Alkaline Phosphatase 103 U/L (38-126); Anion Gap 2 mmol/L (8-16); Aspartate Amino Transferase 60 U/L (17-59); Bilirubin,Total 0.1 mg/dL (0.2-1.3); Blood Urea Nitrogen 50 mg/dL (9-20); Calcium 8.7 mg/dL (8.4-10.2); Carbon Dioxide 38 mmol/L (22-30); Chloride 97 mmol/L (98-107); Estimated CRCL calculation 46 ml/min; Estimated Glomerular Filt Rate 54; Glucose 260 mg/dL (65-110); Potassium 5.2 mmol/L (3.4-5.0); Sodium 137 mmol/L (137-145)
[2021-06-03 07:11] LABS: Glucose Point of Care 225 mg/dl (65-105)
[2021-06-03] MEDS: INSULIN ASPART (*BKC) 100 UNITS/ML SUB-Q (07:12)
[2021-06-03] MEDS: ALBUTEROL SULFATE NEB 2.5 MG/0.5 ML INH 10 MG INHALATION (07:53)
[2021-06-03] MEDS: DEXTROSE 50% 25 GM/50 ML SYRINGE IV PUSH (08:02)
[2021-06-03] MEDS: SODIUM BICARBONATE 8.4% 50 MEQ/50 ML SYRINGE IV PUSH (08:03)
[2021-06-03] MEDS: INSULIN HUMAN REGULAR (*BKC) 100 UNITS/ML 10 UNITS IV PUSH (08:03)
--- NOTE | 2021-06-03 08:28 | WPDINTPN ---
Progress Note: A&P Assessment and Plan (1) Shock: Code(s): R57.9 - Shock, unspecified Status: Acute Assessment and Plan: RESOLVED: OFF LEVOPHED Shock likely septic shock, also could be related to sedation medications and positive-pressure ventilation. -continue vancomycin, cefepime, levofloxacin per pulmonology - -blood cultures negative x2 -urine cultures negative -lactic acid is normal (2) Cardiac arrest: Code(s): I46.9 - Cardiac arrest, cause unspecified Status: Acute Assessment and Plan: 05/31/2021: PEA arrest likely related to hypoxia after he pulled out his BiPAP and was off oxygen. -ACLS protocol was initiated, patient with ROSC after 15 minutes -post cardiac arrest patient is awake, follows simple commands in all extremities and nods to questions -05/31/2021: CT brain did not show any acute intracranial abnormality, age-related findings -echocardiogram 05/31/2021 showed EF of 50-55%, normal LV chamber dimensions. LV diastolic function indeterminate. Basal anteroseptal and mid anterior septal hypokinetic. Moderate pulmonary hypertension with RVSP of 47 mmHg -appreciate cardiology evaluation recommendation (3) Acute and chronic respiratory failure with hypoxia: Code(s): J96.21 - Acute and chronic respiratory failure with hypoxia Status: Acute Assessment and Plan: Acute respiratory failure likely related to hypoxia, pulmonary edema, diffuse infiltrates on chest x-ray -patient was intubated during the code on 05/31/2021, was extubated on 06/02/2021 -on 06/02 later in the evening patient started to desaturate and have agonal breathing, was placed on BiPAP since he was a DNR -06/03: ABG showed severe hypercapnic respiratory failure with a pCO2 of 121 and a pH of 7.06 -discussed with Nikki, updated with patient's condition, she is on her way to the hospital and most likely will withdraw support (4) Pneumonia: Qualifiers: Pneumonia type: due to unspecified organism Laterality: bilateral Lung location: lower lobe of lung Qualified Code(s): J18.9 - Pneumonia, unspecified organism Code(s): J18.9 - Pneumonia, unspecified organism Status: Acute Assessment and Plan: CTA done on 05/30/2021: No pulmonary embolism. Showed recurrent versus chronic pneumonia with dense consolidation involving the bilateral lower lobes, right greater than left a numerous more diffuse centrilobular nodules throughout the lungs. Mild pulmonary edema and small bilateral pleural effusion left greater than right, emphysema. Chronic radiation fibrosis, paraesophageal lymphadenopathy -patient is on cefepime, vancomycin, levofloxacin initiated 05/30/2021 -pulmonology following the patient (5) Type 2 diabetes mellitus: Code(s): E11.9 - Type 2 diabetes mellitus without complications Status: Acute Assessment and Plan: Continue sliding scale insulin and Accu-Cheks, -hemoglobin A1c this admission was 5.0 -Lantus (6) Hypertension: Code(s): I10 - Essential (primary) hypertension Status: Chronic Assessment and Plan: History of essential hypertension, currently borderline blood pressures due to positive pressure ventilation and possibly diuretics -will hold all antihypertensives at this time (7) Hypothyroidism: Code(s): E03.9 - Hypothyroidism, unspecified Status: Acute Assessment and Plan: Continue levothyroxine (8) COPD exacerbation: Code(s): J44.1 - Chronic obstructive pulmonary disease with (acute) exacerbation Status: Acute Assessment and Plan: COPD with acute on chronic respiratory failure -patient uses 5-6 L of oxygen via nasal cannula at home -has failed noninvasive ventilation at home per 5th grade teacher -continue Solu-Medrol, bronchodilators and antibiotics (9) DVT prophylaxis: Code(s): Z29.9 - Encounter for prophylactic measures, unspecified Status: Acute Assessment and P
--- NOTE | 2021-06-03 09:44 | PM.IMPN ---
Subjective Date/time seen: 06/03/21 09:44 Objective Data Vital Signs Vital Signs: Vital Signs - 24 hr 06/02/21 10:00 06/02/21 10:45 06/02/21 12:00 Temperature 98 F Pulse Rate 108 H 108 H 104 H Respiratory Rate 22 H 18 Blood Pressure 110/57 L 139/75 Pulse Oximetry 95 95 97 06/02/21 14:00 06/02/21 14:09 06/02/21 14:10 Temperature Pulse Rate 110 H 108 H 108 H Respiratory Rate 18 16 16 Blood Pressure 149/78 H Pulse Oximetry 94 93 06/02/21 16:00 06/02/21 18:00 06/02/21 20:00 Temperature 97.7 F 97.8 F Pulse Rate 113 H 109 H 109 H Respiratory Rate 14 13 14 Blood Pressure 150/70 H 143/73 H 132/72 Pulse Oximetry 97 97 97 06/02/21 20:20 06/02/21 20:25 06/02/21 20:26 Temperature Pulse Rate 111 H 111 H 113 H Respiratory Rate 16 16 17 Blood Pressure Pulse Oximetry 97 06/02/21 22:00 06/02/21 23:15 06/03/21 00:00 Temperature 97.9 F 98.0 F Pulse Rate 115 H 118 H 124 H Respiratory Rate 17 16 20 Blood Pressure 144/73 H 167/79 H Pulse Oximetry 95 94 92 06/03/21 01:49 06/03/21 01:52 06/03/21 01:55 Temperature Pulse Rate 134 H 132 H 135 H Respiratory Rate 17 17 20 Blood Pressure Pulse Oximetry 96 06/03/21 02:00 06/03/21 04:00 06/03/21 04:05 Temperature 97.8 F 97.5 F L Pulse Rate 137 H 129 H 129 H Respiratory Rate 18 14 16 Blood Pressure 179/89 H 156/62 H Pulse Oximetry 95 96 97 06/03/21 06:00 06/03/21 06:28 06/03/21 07:53 Temperature 97.0 F L Pulse Rate 119 H 123 H 112 H Respiratory Rate 14 14 14 Blood Pressure 131/59 L Pulse Oximetry 93 94 06/03/21 07:58 06/03/21 07:59 06/03/21 08:00 Temperature Pulse Rate 113 H 112 H 116 H Respiratory Rate 13 Blood Pressure Pulse Oximetry 94 94 06/03/21 08:02 06/03/21 09:05 Temperature Pulse Rate 112 H 114 H Respiratory Rate 16 14 Blood Pressure Pulse Oximetry 96 Intake/Output Intake/Output: Intake & Output 05/31/21 06/01/21 06/02/21 06/03/21 23:59 23:59 23:59 23:59 Intake Total 1100 3084 2921 50 Output Total 803 108 9176 650 Balance 800 2584 1846 -600 Meds/Results Medications: Active Medications Generic Name Dose Route Start Last Admin Trade Name Freq PRN Reason Stop Dose Admin Acetaminophen 650 mg 05/29/21 15:43 06/01/21 06:01 Acetaminophen 325 Mg Tablet PO 650 mg Q4H PRN Administration Mild Pain (1-3) or Fever Aspirin 81 mg 06/02/21 08:00 06/03/21 08:41 Aspirin 81 Mg Chewable Tablet PO Not Given DAILY@0800 [facility] Atorvastatin Calcium 40 mg 05/30/21 09:00 06/03/21 08:42 Atorvastatin 40 Mg Tablet PO Not Given DAILY [facility] Dextrose 12.5 gm 05/29/21 19:52 Dextrose 50% 25 Gm/50 Ml Syringe IV PUSH PRN PRN Hypoglycemia Protocol Enoxaparin Sodium 40 mg 05/30/21 09:00 06/03/21 09:25 Enoxaparin 40 Mg/0.4 Ml Syringe SUB-Q Not Given DAILY [facility] Ferrous Sulfate 324 mg 05/30/21 08:00 05/31/21 10:55 Ferrous Sulfate 324 Mg Tablet PO Not Given DAILY@0800 [facility] Fish Oil 1 gm 05/30/21 09:00 05/31/21 10:55 [place] 3 Polyunsat Fatty Acids 1 Gm Cap PO 06/29/21 08:59 Not Given BID [facility] Furosemide 40 mg 05/31/21 09:00 05/31/21 09:56 Furosemide Inj 40 Mg/4 Ml Vial IV PUSH 40 mg BID [facility] Administration Glucagon 1 mg 05/29/21 19:52 Glucagon For Inj 1 Mg Vial IM PRN PRN Hypoglycemia Protocol Glucose 15 gm 05/29/21 19:52 Glucose Oral Gel 15 Gm Of Glucse In 37.5 Gm Tube PO PRN PRN Hypoglycemia Protocol Dextrose 1,000 mls @ 100 mls/hr 05/29/21 19:52 Dextrose 5% 1,000 Ml IVPB PRN PRN Hypoglycemia Protocol Sodium Chloride 1,000 mls @ 50 mls/hr 05/31/21 22:20 06/02/21 22:04 Normal Saline Iv IV CONT 50 mls/hr .Q20H [facility] Administration Vancomycin HCl 1,250 mg in 250 mls @ 200 mls/hr 06/02/21 13:00 06/02/21 14:15 Vancomycin 1,250 Mg/D5w 250 Ml IVPB Infused Q36H [facility] Infusion Cefepime HCl 2 gm in 50 mls @ 100 mls/hr 0
[2021-06-03] MEDS: MORPHINE SULFATE INJ (*CRX) 10 MG/ML AMP 5 MG IV PUSH (10:10)
[2021-06-03] MEDS: LORazepam INJ (*CRX) 2 MG/ML VIAL IV PUSH (10:30)
--- NOTE | 2021-06-03 14:33 | PC.NURSE ---
body picked up for home, glasses sent with
--- NOTE | 2021-06-03 16:21 | P.DN_ITS ---
Discharge Summary Date and Time Date of : 06/03/21 Time of : 13:00 Provider Pronounced By: Casey Plummer Probable Cause of Probable Cause of : acute on chronic respiratory failure with hypoxia and hypercarbia Summary Hospital Course: Patient was seen examined on June 03, 2021. He was still wearing a BiPAP mask although family had decided to institute comfort care only. He was unresponsive. Pupils were midpoint and sluggish. Mucosa was moist. Chest with diminished breath sounds throughout. Heart regular. Extremities trace edema. Abdomen hypoactive bowel sounds. Patient was admitted with COPD exacerbation and acute respiratory failure on May 29. He was treated Proteus steroids antibiotics BiPAP oxygen. On May 31 experience PA cardiac arrest and ACLS protocol was initiated. He was resuscitated and moved to the intensive care unit on ventilator. He remai koko stable but without improvement and is neurological status until the date of . Additional Data Confirmation of as documented by pronouncing clinician: Pupillary Reflex, Palpable Pulses, Response to Stimuli, Heart Tones and Breath Sounds Name of Provider Notified: Dr. Mejia Time Provider Notified: 13:05 Provider Requests Autopsy: No Family Requests Autopsy: No Studio Operation Engineer Notified: Yes Date [facility] Notified of : 06/03/21 Time [facility] Notified of : 13:40
[2021-06-05 13:52] LABS: Chloride Rand Ur <20 mmol/L (32-290); Creatinine Random Urine 75 mg/dL (20-320)
[2021-06-06 22:13] LABS: Haptoglobin 259 mg/dL (43-212)
== END 2021-06-03 13:00 | disposition expired | DRG 208 ==
LOC: ANHED 15:59 → ANHIMU 05-30 07:18 → ANHICU 06-01 07:40 → ANHIMU 06-05 16:25
PROVIDERS: Emergency Medicine; Family Medicine; Internal Medicine; Internal Medicine Pulmonary Disease; Physician Assistant; Admitting Provider Internal Medicine; Emergency Provider Family Medicine; PCP Emergency Medicine; Visit Provider Nurse Practitioner
DX: J96.21 Acute and chronic respiratory failure with hypoxia (principal); J18.9 Pneumonia, unspecified organism; N17.9 Acute kidney failure, unspecified; R57.9 Shock, unspecified; J44.0 Chronic obstructive pulmonary disease with (acute) lower respiratory infection; J44.1 Chronic obstructive pulmonary disease with (acute) exacerbation; J96.22 Acute and chronic respiratory failure with hypercapnia; Z20.822 Contact with and (suspected) exposure to COVID-19; I27.20 Pulmonary hypertension, unspecified; I46.9 Cardiac arrest, cause unspecified; Z66 Do not resuscitate; R93.1 Abnormal findings on diagnostic imaging of heart and coronary circulation; Z99.81 Dependence on supplemental oxygen; E11.42 Type 2 diabetes mellitus with diabetic polyneuropathy; K21.9 Gastro-esophageal reflux disease without esophagitis; E78.5 Hyperlipidemia, unspecified; I10 Essential (primary) hypertension; E03.9 Hypothyroidism, unspecified; M19.90 Unspecified osteoarthritis, unspecified site; N40.0 Benign prostatic hyperplasia without lower urinary tract symptoms; R00.0 Tachycardia, unspecified; Z87.891 Personal history of nicotine dependence; Z79.84 Long term (current) use of oral hypoglycemic drugs; Z79.899 Other long term (current) drug therapy; Z85.118 Personal history of other malignant neoplasm of bronchus and lung; Z92.3 Personal history of irradiation; Z92.21 Personal history of antineoplastic chemotherapy
CPT/HCPCS: 31500; 36415; 36556; 36569; 36600; 70450; 71045; 71275; 76775; 80048; 80053; 80202; 82375; 82436; 82550; 82570; 82728; 82805; 82948; 83010; 83036; 83050; 83605; 83615; 83735; 83880; 84100; 84133; 84300; 84443; 84484; 85025; 85380; 85999; 86140; 87040; 87086; 87426; 92950; 93005; 93306; 94002; 94003; 94640; 96374; 99291; A9270; C1751; C9113; C9803; J0171; J0692; J0696; J1650; J1815; J1940; J1956; J2060; J2250; J2270; J2920; J2930; J3010; J3370; J3475; J7030; J7040; Q9967; U0003; U0005